=== PATIENT | male | born 1955 | race African-American/Black ===

== ENCOUNTER 2016-03-14 14:24 | Emergency (ER) | payer MEDICARE ==
[~2016-03-14] VITALS: Ht 193 cm; Wt 154.2 kg
[~2016-03-14 14:24] MED LIST: 'CLONIDINE0.1 MG PO; AMLODIPINE BESY1 TAB PO; AMLODIPINE BESYL5 MG PO; AMOXICILLIN500 M2 PO; APA PO; APRESOLINE25 MG PO; ASPIRIN ADULT L81 M2 PO; ASPIRIN81 M1 PO; ATENOLOL25 MG PO; B12,B-12,B 12500 MC1 PO; BACTRIM DS 8001 TA1 PO; BISACODYL5 MG PO; BISCOLAX10 M1 RC; BUMETANIDE1 MG PO; BUMETANIDE2 MG PO; CALCIUM ACETAT667 M2 PO; CALCIUM ACETAT667 MG PO; CARDIZEM60 MG PO; CARVEDILOL12.5 MG PO; CARVEDILOL25 MG PO; CATAPRES0.2 MG PO; CEPHALEXIN500 M1 PO; CIPRO500 MG PO; CLEOCIN PH600 MG/4 M IV; CLINDAMYCIN HC300 MG PO; CLINDAMYCIN150 MG PO; CLONIDINE HCL0.1 MG PO; CLONIDINE0.2 MG PO; CLONIDINE0.3 MG PO; CLOPIDOGREL75 MG PO; COLCRYS0.6 MG PO; COREG25 MG PO; COREG6.25 MG PO; COUMADIN10 M1 PO; COUMADIN6 M2 PO; Coumadin10 MG PO; DOXYCYCLINE100 MG PO; FEOSOL325 MG PO; FLUDROCORTISON0.1 MG PO; FUROSEMIDE40 MG PO; HUMALOG 751 UNIT/0.0 SC; HUMALOG100 U/ML SC; HUMALOG100 UNIT/2 SQ; HUMULIN R100 U/ML SC; HYDRALAZINE HYD50 MG PO; HYDROCODONE PO; IMDUR SA30 MG PO; IMDUR SA60 M1 PO; IMDUR SA60 MG PO; IMDUR60 MG PO; Imdur SA60 MG PO; LANTUS100 U/ML SC; LANTUS100 U/ML SQ; LEVOFLOXACIN500 MG PO; LISINOPRIL40 MG PO; METOLAZONE5 MG PO; MIRALAX POWDER17 G1 PO; MULTAQ400 MG PO; NEURONTIN300 MG PO; NITROGLYCERIN0.4 MG SL; NITROSTAT0.4 MG SL; NORCO 10-325 T1 EACH PO; NORCO 325 MG-101 TAB PO; NORCO 5-325 TA1 EACH PO; NORVASC10 MG PO; NOVOLIN 70100 UNIT/1 SQ; NOVOLOG 70/30 M10 ML SC; NOVOLOG 70/30 M10 ML SQ; PANTOPRAZOLE SO40 MG PO; PERCOCET 325 MG1 TA2 PO; PRAVACHOL40 MG PO; PRAVASTATIN SOD40 MG PO; Percocet 325 MG1 TAB PO; RANEXA1000 MG PO; RESTORIL15 MG PO; SODIUM BICARBO648 MG PO; SODIUM BICARBO650 MG PO; TOPROL XL100 MG PO; TOPROL XL50 M1 PO; TYLENOL325 M1 PO; VANCOMYCIN HYDRO1 GM IV; ZOSYN 2/0.252.25 GM IV
[2016-03-14 15:17] LABS: BASO % 0.3 % (0.0-1.0); EOS # 0.2 10*3/uL (0.0-0.4); EOS % 1.8 % (1.0-4.0); HEMATOCRIT 28.6 % (42.0-52.0); HEMOGLOBIN 8.9 g/dl (14.0-18.0); LYMPH # 1.3 10*3/uL (1.3-4.4); LYMPH % 12.4 % (27.0-41.0); MEAN CELL VOLUME 78.8 fl (80.0-94.0); MEAN CORPUSCULAR HGB 24.5 pg (27.0-31.0); MEAN CORPUSCULAR HGB CONC 31.1 g/dl (33.0-37.0); MEAN PLATELET VOLUME 9.1 fl (9.6-12.3); MONO # 0.7 10*3/uL (0.1-1.0); MONO % 6.3 % (3.0-9.0); NEUT # 8.1 10*3/uL (2.3-7.9); NEUT % 78.8 % (47.0-73.0); PLATELET COUNT AUTOMATED 219 10*3/uL (130-400); RED BLOOD COUNT 3.63 10*6/uL (4.50-5.90); RED CELL DISTRI WIDTH 16.7 % (0-14.5); WHITE BLOOD COUNT 10.3 10*3/uL (4.8-10.8)
[2016-04-13] MEDS ORDERED: PRAVACHOL40 MG PO (10:09)
[2016-04-13] MEDS ORDERED: NORVASC5 MG PO (10:09)
[2016-04-13] MEDS ORDERED: NEURONTIN300 MG PO (10:10)
[2016-04-13] MEDS ORDERED: NOVOLIN 70100 UNIT/1 SQ ×2 (10:10)
[2016-04-13] MEDS ORDERED: HUMULIN R100 U/ML SC (10:11)
[2016-04-13] MEDS ORDERED: CLONIDINE HCL0.1 M1 PO (10:11)
[2016-04-13] MEDS ORDERED: ISOSORBIDE MONO60 MG PO (10:11)
[2016-04-13] MEDS ORDERED: PERCOCET 325 MG1 TA2 PO (10:12)
[2016-04-13] MEDS ORDERED: NITROGLYCERIN0.4 MG SL (10:15)
[2016-04-13] MEDS ORDERED: CALCIUM ACETAT667 M2 PO (10:16)
[2016-04-13] MEDS ORDERED: MULTAQ400 MG PO (10:16)
[2016-04-13] MEDS ORDERED: DILTIAZEM60 MG PO (10:17)
[2016-04-13] MEDS ORDERED: Metolazone5 MG PO (10:17)
[2016-04-13] MEDS ORDERED: APRESOLINE25 MG PO (10:17)
[2016-04-13] MEDS ORDERED: BUMETANIDE2 MG PO (10:17)
[2016-04-15] MEDS ORDERED: BUMETANIDE2 MG PO (14:18)
[2016-04-15] MEDS ORDERED: METOLAZONE5 MG PO (14:18)
[2016-05-15] MEDS ORDERED: TOPROL XL50 M1 PO (15:12)
[2016-05-15] MEDS ORDERED: CLOPIDOGREL75 MG PO (15:12)
== END 2016-03-14 17:23 | disposition home or self-care (01) ==
LOC: ED 14:24
PROVIDERS: Emergency Medicine
DX: R07.89 Other chest pain (principal); F41.0 Panic disorder [episodic paroxysmal anxiety]; E78.00 Pure hypercholesterolemia, unspecified; F41.9 Anxiety disorder, unspecified; E11.40 Type 2 diabetes mellitus with diabetic neuropathy, unspecified; I12.9 Hypertensive chronic kidney disease with stage 1 through stage 4 chronic kidney disease, or unspecified chronic kidney disease; E11.22 Type 2 diabetes mellitus with diabetic chronic kidney disease; N18.4 Chronic kidney disease, stage 4 (severe); K21.9 Gastro-esophageal reflux disease without esophagitis; M19.90 Unspecified osteoarthritis, unspecified site; M86.9 Osteomyelitis, unspecified; E78.5 Hyperlipidemia, unspecified; M10.9 Gout, unspecified; I48.0 Paroxysmal atrial fibrillation; I99.8 Other disorder of circulatory system; Z79.899 Other long term (current) drug therapy; Z79.01 Long term (current) use of anticoagulants; Z79.4 Long term (current) use of insulin

== ENCOUNTER 2016-05-25 19:50 | Emergency (ER) | payer MEDICARE ==
[~2016-05-25] VITALS: Ht 193 cm; Wt 158.8 kg
[~2016-05-25 19:50] MED LIST changes: +CLONIDINE HCL0.1 M1 PO; +DILTIAZEM60 MG PO; +ISOSORBIDE MONO60 MG PO; +Metolazone5 MG PO; +NORVASC5 MG PO
[2016-05-25] MEDS ORDERED: ZITHROMAX250 MG PO (21:02)
== END 2016-05-25 21:07 | disposition home or self-care (01) ==
LOC: ED 19:50
DX: J40 Bronchitis, not specified as acute or chronic (principal); Z87.891 Personal history of nicotine dependence; Z79.4 Long term (current) use of insulin

== ENCOUNTER 2016-05-28 10:05 | Emergency (ER) | payer MEDICARE ==
[~2016-05-28] VITALS: Ht 193 cm; Wt 158.8 kg
[~2016-05-28 10:05] MED LIST changes: +ZITHROMAX250 MG PO
[2016-05-28] MEDS ORDERED: AMLODIPINE BESY1 TAB PO (10:24)
[2016-05-28] MEDS ORDERED: ASPIRIN81 MG PO (10:25)
[2016-05-28] MEDS ORDERED: IMDUR SA60 M1 PO (10:26)
[2016-05-28] MEDS ORDERED: CARVEDILOL25 MG PO (10:27)
[2016-05-28 11:12] LABS: BASO % 0.3 % (0.0-1.0); EOS # 0.3 10*3/uL (0.0-0.4); EOS % 2.6 % (1.0-4.0); HEMATOCRIT 28.7 % (42.0-52.0); HEMOGLOBIN 8.6 g/dl (14.0-18.0); IG # 0.1 10*3/uL (0.0-0.1); LYMPH % 9.2 % (27.0-41.0); MEAN CELL VOLUME 76.3 fl (80.0-94.0); MEAN CORPUSCULAR HGB 22.9 pg (27.0-31.0); MEAN PLATELET VOLUME 9.1 fl (9.6-12.3); MONO # 0.7 10*3/uL (0.1-1.0); MONO % 6.3 % (3.0-9.0); NEUT # 9.1 10*3/uL (2.3-7.9); NEUT % 81.2 % (47.0-73.0); PLATELET COUNT AUTOMATED 300 10*3/uL (130-400); RED BLOOD COUNT 3.76 10*6/uL (4.50-5.90); RED CELL DISTRI WIDTH 17.1 % (0-14.5); WHITE BLOOD COUNT 11.2 10*3/uL (4.8-10.8)
[2016-05-28 11:29] LABS: ALBUMIN 2.9 gm/dl (3.1-4.5); BILIRUBIN, TOTAL 0.2 mg/dl (0.2-1.0); POTASSIUM 4.1 mmol/L (3.5-5.1); TOTAL PROTEIN 7.6 gm/dL (6.4-8.2)
[2016-05-28] MEDS ORDERED: ROBITUSSIN AC 110 ML PO (11:41)
[2016-05-28] MEDS ORDERED: CEPHALEXIN500 M1 PO (12:27)
[2016-05-28] MEDS ORDERED: BACTRIM DS 8001 TA1 PO (12:27)
== END 2016-05-28 13:09 | disposition home or self-care (01) ==
LOC: ED 10:05
PROVIDERS: Physician Assistant
DX: R79.9 Abnormal finding of blood chemistry, unspecified (principal); L98.499 Non-pressure chronic ulcer of skin of other sites with unspecified severity; F17.200 Nicotine dependence, unspecified, uncomplicated; Z48.01 Encounter for change or removal of surgical wound dressing; Z98.890 Other specified postprocedural states; Z79.899 Other long term (current) drug therapy; Z79.82 Long term (current) use of aspirin; Z79.4 Long term (current) use of insulin

== ENCOUNTER 2016-05-31 22:38 | Emergency (ER) | payer MEDICARE ==
[~2016-05-31] VITALS: Ht 193 cm; Wt 158.8 kg
[~2016-05-31 22:38] MED LIST changes: +ASPIRIN81 MG PO; +ROBITUSSIN AC 110 ML PO
[2016-05-31 23:26] LABS: BASO % 0.2 % (0.0-1.0); EOS # 0.2 10*3/uL (0.0-0.4); EOS % 1.2 % (1.0-4.0); HEMATOCRIT 26.4 % (42.0-52.0); IG # 0.1 10*3/uL (0.0-0.1); LYMPH # 0.8 10*3/uL (1.3-4.4); LYMPH % 6.7 % (27.0-41.0); MEAN CELL VOLUME 76.5 fl (80.0-94.0); MEAN CORPUSCULAR HGB 23.2 pg (27.0-31.0); MEAN CORPUSCULAR HGB CONC 30.3 g/dl (33.0-37.0); MEAN PLATELET VOLUME 8.9 fl (9.6-12.3); MONO # 0.7 10*3/uL (0.1-1.0); MONO % 5.5 % (3.0-9.0); NEUT # 10.7 10*3/uL (2.3-7.9); NEUT % 85.7 % (47.0-73.0); PLATELET COUNT AUTOMATED 287 10*3/uL (130-400); RED BLOOD COUNT 3.45 10*6/uL (4.50-5.90); RED CELL DISTRI WIDTH 17.5 % (0-14.5); WHITE BLOOD COUNT 12.4 10*3/uL (4.8-10.8)
[2016-05-31 23:46] LABS: ALBUMIN 2.7 gm/dl (3.1-4.5); ALKALINE PHOSPHATASE 76 U/L (45-117); BILIRUBIN, TOTAL 0.2 mg/dl (0.2-1.0); BUN 66 mg/dl (7-24); CARBON DIOXIDE 24 mmol/L (21-32); CHLORIDE 106 mmol/L (98-107); CPK 86 U/L (39-308); EST GLOM FILT AFRICAN AMERICAN 13 ml/min; GLUCOSE 328 mg/dL (65-99); POTASSIUM 4.9 mmol/L (3.5-5.1); SGOT/AST 10 IU/L (3-35); SGPT/ALT 14 U/L (12-78); SODIUM 141 mmol/L (136-145); TOTAL PROTEIN 7.7 gm/dL (6.4-8.2)
[2016-05-31 23:47] LABS: CKMB 1.3 ng/ml (0.5-3.6); TROPONIN I < 0.015 ng/ml (<0.045)
[2016-06-01] MEDS ORDERED: CYCLOBENZAPRINE5 M3 PO (01:53)
[2016-06-01] MEDS ORDERED: NORVASC5 MG PO (23:39)
[2016-06-01] MEDS ORDERED: PERCOCET 325 MG1 TA5 PO (23:53)
[2016-06-02] MEDS ORDERED: NITROSTAT0.4 MG SL (00:02)
[2016-06-02] MEDS ORDERED: Metolazone5 MG PO (00:03)
[2016-06-02] MEDS ORDERED: CALPHRON667 MG PO (00:03)
== END 2016-06-01 03:10 | disposition home or self-care (01) ==
LOC: ED 22:38
PROVIDERS: Nurse Practitioner Family
DX: M54.12 Radiculopathy, cervical region (principal); I12.9 Hypertensive chronic kidney disease with stage 1 through stage 4 chronic kidney disease, or unspecified chronic kidney disease; N18.4 Chronic kidney disease, stage 4 (severe); B95.62 Methicillin resistant Staphylococcus aureus infection as the cause of diseases classified elsewhere; R60.9 Edema, unspecified; F41.9 Anxiety disorder, unspecified; D63.8 Anemia in other chronic diseases classified elsewhere; E11.621 Type 2 diabetes mellitus with foot ulcer; E11.40 Type 2 diabetes mellitus with diabetic neuropathy, unspecified; I50.9 Heart failure, unspecified; K21.9 Gastro-esophageal reflux disease without esophagitis; M10.9 Gout, unspecified; E78.5 Hyperlipidemia, unspecified; E66.01 Morbid (severe) obesity due to excess calories; M19.90 Unspecified osteoarthritis, unspecified site; I48.91 Unspecified atrial fibrillation; F17.200 Nicotine dependence, unspecified, uncomplicated; I25.2 Old myocardial infarction; Z98.890 Other specified postprocedural states; Z79.899 Other long term (current) drug therapy; Z79.82 Long term (current) use of aspirin; Z79.4 Long term (current) use of insulin

== ENCOUNTER 2016-06-01 20:43 | Inpatient (IN) | payer MEDICARE ==
[~2016-06-01] VITALS: Ht 193 cm; Wt 166.6 kg
--- NOTE | ~2016-06-01 | PR ---
[place], [place] PROGRESS NOTE NAME: YOLA GARDUNO [facility] #: [id number] UNIT #: [id number] ROOM: [facility] DOCTOR: DOROTHY RAMOS MD BIRTHDATE: [birth year] DOS: 06/03/2016 CARDIOLOGY PROGRESS NOTE SUBJECTIVE: The patient was seen at his bedside today on 06/03/2016 in the Intensive Care Unit. Since I saw him yesterday, he has apparently diuresed quite a bit; however, his urine output has been inaccurate because of anuresis and missing the urinal. He states that he is breathing a little bit better, but he still seems very dyspneic at rest and with minimal exertion. He denies any further chest pain. PHYSICAL EXAMINATION: VITAL SIGNS: Today, his pulse is 112 and irregularly irregular, blood pressure is 149/78. He is afebrile. NECK: Supple. He does have jugular distention and hepatojugular reflux. LUNGS: Respirations are tachypneic. He has decreased breath sounds at the bases and scattered wheezes throughout. HEART: Has an irregularly irregular rhythm. There are no murmurs or gallops. ABDOMEN: Obese. EXTREMITIES: Showed 1+ edema of the arms and legs. DIAGNOSTIC DATA: I reviewed his chest x-ray. He still is very hazy; although the focal collection in the left lung appears to have improved. He still appears to be significantly fluid overloaded from my perspective. LABORATORY DATA: Hemoglobin is 8.1, hematocrit 26.4. There are 10,700 white cells. INR is 1.0. Sodium is 142, potassium 4.1, BUN 70, creatinine 5.8. Estimated GFR for an -Canadian is 12. Serial troponin levels are still mildly elevated with his most recent one being 0.279 yesterday afternoon. IMPRESSION: 1. Chest pain with elevated troponin. The troponin elevation may be related to his worsening renal failure or acute coronary ischemia. Further workup will probably be necessary once his fluid status has been improved and renal functions have stabilized. 2. Type 2 diabetes mellitus, on insulin. 3. Xbfqy-xq-gjwjosb diastolic congestive heart failure. 4. Morbid obesity. 5. Remote cigarette abuse. 6. Diabetic complications including peripheral neuropathy, renal insufficiency and Charcot joints. PLAN: We will increase his hydralazine further to help control his blood pressure. We will also increase his beta blockers to further control his heart rate response to the atrial fibrillation. For now, we will continue to treat him medically, but if he does require dialysis and is stabilized on dialysis, we will discuss the possibility of catheterization after that. [place], [place] PROGRESS NOTE NAME: YOLA GARDUNO UNIT #: [id number] ROOM: [facility] DOCTOR: RICHARD ESPOSITO,DOROTHY BIRTHDATE: [birth year] For now, aggressive diuresis will be left to the judgment of his neuroscience specialist. I thank the hospitalist physicians for asking our advice regarding the patient's care. DOROTHY RAMOS MD CM:PNTRANS [id number] DOROTHY RAMOS MD 06/03/16 1538 interface
--- NOTE | ~2016-06-01 | CON ---
[place], [place] REPORT OF CONSULTATION [id number] UNIT #: [id number] [facility] DOCTOR: AISSATOU PINA M.D. BIRTHDATE: [birth year] DOS: WOUND CARE CONSULTATION HISTORY OF PRESENT ILLNESS: This is a 60-year-old male with a history of multiple medical problems and uncontrolled diabetes who was admitted for chest pain and shortness of breath. He was admitted to the Emergency Department for this complaint and was noted to be hypertensive as well as having positive troponin. His chest x-ray initially showed a large airspace opacity in left midlung. He was admitted to the ICU for further management. He also has a history of multiple medical problems that include the following, anemia of chronic kidney disease, history of anxiety, cervical radiculopathy, chronic kidney disease stage 4, diabetic foot ulcers, which he goes to a regular wound care doctor who he sees regularly. He has a foot wrap on his right lower extremity as well as a wrap on his left foot and he refuses to have me look at any of these wounds. PAST MEDICAL HISTORY: He has a history of diabetic foot ulcers, diabetic neuropathy, history of osteomyelitis, diastolic congestive heart failure, GERD, gout, hyperlipidemia, hypertension, history of fracture of ankle, history of myocardial infarction, hypercoagulable state, morbid obesity, MRSA culture positive, osteoarthritis, osteomyelitis, currently being treated by wound care that is not around this area, paroxysmal atrial fib, protein-calorie malnutrition, diabetes type 2. PAST SURGICAL HISTORY: He has had cardiac cath, port catheter in place, status post aneurysm repair, toe amputation. SOCIAL HISTORY: He is a nondrinker. He used to drink alcohol daily for 24 years. He is a former smoker, as stated above. FAMILY HISTORY: Significant for diabetes, hypertension, hyperlipidemia. Mother congestive heart failure and hypertension. Sister is secondary to diabetes with complications and cardiac abnormalities. ALLERGIES: No known drug allergies. CURRENT MEDICATIONS: Levaquin 500 mg, vancomycin 2000 mg, Humulin 70/30, hydralazine 50 mg p.o. b.i.d., Catapres 0.1 at bedtime, Coreg 37.5 b.i.d., Zosyn 2.25 grams IV q. 6 hours, Bumex 2 mg IV b.i.d., Zaroxolyn 5 mg Thursday, Thursday, Thursday; DuoNebs q. 6 hours p.r.n., Nitro-Bid 1 inch q. 6 hours topically, heparin subcutaneous 5000 units, Humalog sliding scale, Protonix 40 mg daily. Currently, he has an open wound on his right hand on his third digit on the dorsal aspect, he said it started out approximately 3-4 days ago, he does not know how it started. He does not recall any type of trauma to it. In general, he feels about the same as he did yesterday with his breathing. He is currently getting a blood transfusion, offers no other specific complaints. Does state that he knows he has had wounds on the left lower extremity on the anterior leg. [place], [place] REPORT OF CONSULTATION NAME: YOLA GARDUNO UNIT #: [id number] ROOM: [facility] DOCTOR: AISSATOU PINA M.D. BIRTHDATE: [birth year] He said all of a sudden his family member noticed those areas were bleeding, but he does not recall how this started, he does not recall any specific trauma. He does have ulcers on both of his feet, apparently which are being treated and he was quite adamant about not wanting me to look at these wounds. PHYSICAL EXAMINATION: VITAL SIGNS: His temperature today is 99.9, his pulse is 108, respirations are 24, blood pressure is 153/91, pulse ox is 93% on 3 liters. This patient is in no acute distress, pleasant and cooperative, somewhat pale to examination. There is no JVD. LUNGS: Coarse breath sounds bilaterally. CARDIOVASCULAR: S1, S2, distant heart sounds. ABDOMEN: Morbidly obese. EXTREMITIES: His right leg has a wrap all the way up to below the knee and the left leg has a wrap on his entire foot. I am unable to feel his pulses because he will not let me take the wrap off of his foot. He did have a Kerlix dressing on his left leg. He does have an indurated edema. There are some scattered superficial wounds with no surrounding periwound cellulitis or tenderness apparent. There is no purulence. There is a cluster of small, I would say 3-4 small superficial wounds approximately 1.5 cm x 1.5 cm in length and width, about 0.1 cm in depth, they are fairly clean. The wound on the right third digit is approximately 2.5 cm x 1.5 cm in width. There is, I would say about 0.2 in depth. There is a moderate amount of fibrin slough. AISSATOU PINA MD CM:CONSTR:REPORT OF CONSULTATION 1650 06/05/16 0627 interface
--- NOTE | ~2016-06-01 | CON ---
[place], [place] REPORT OF CONSULTATION NAME: YOLA GARDUNO [facility] #: [id number] UNIT #: [id number] ROOM: [facility] DOCTOR: DOROTHY RAMOS MD BIRTHDATE: [birth year] DOS: 06/02/2016 REASON FOR CONSULTATION: Chest pain and elevated troponin. HISTORY OF PRESENT ILLNESS: The patient is a 60-year-old man who is known to have coronary artery disease as documented by noninvasive imaging in the past. A myocardial perfusion study done on 10/12/2015 showed a small sized moderate intensity reversible defect of the inferior wall with an ejection fraction of 66%. It was felt that he did have coronary artery disease, but that his prognosis was good. A catheterization was not done because of his renal insufficiency and probability that the dye would worsen renal functions. Since then, his renal functions have deteriorated. He was scheduled to have a fistula inserted; however, he missed the appointment. He states that he was sitting at the side of his bed yesterday when he developed a pressures type chest pain, which was severe. This was across the center and left side of his chest and was associated with severe dyspnea. He did not have nausea or diaphoresis. As soon as the pain started, he became concerned and took a nitroglycerin. He stated that within a few moments, the pain resolved, but he remained somewhat dyspneic and therefore came to the Emergency Room for further assessment. In the Emergency Room, his blood pressure was significantly elevated and troponin was elevated. He also had an opacity in the left lung suggesting the possibility of pneumonia. He was therefore admitted to the Intensive Care Unit for further management. Since he has been here, he has continued to be dyspneic. He does not have the acute dyspnea that he had prior to admission, however. Serial troponin levels have remained elevated with an initial troponin level of 0.325, then 0.457, then 0.380. He has had no further chest pain. His electrocardiogram did not show any acute EKG changes, although he does have findings consistent with a previous anterior and inferior myocardial infarction. PAST MEDICAL HISTORY: Includes: 1. Type 2 diabetes mellitus, present for about 10 years and poorly controlled. 2. Obesity. 3. Cigarette abuse. 4. Severe peripheral neuropathy. 5. Chronic renal insufficiency, near end-stage. 6. Atherosclerotic heart disease, typically followed by chip mucker at the [facility] in [place]. 7. Cardiac catheterization at the [facility] in [place] around 2013. Reportedly, found mild vascular disease and he was not revascularized. 8. Recurrent hospitalizations for chest pain. Pharmacologic myocardial perfusion study on 10/10/2015 showed a small area of inferior ischemia with an ejection fraction of 66%. Given the fairly low risk of the stress test and his poor renal function, it was felt that he should be treated medically. 9. 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 Details are not available. 10. Status post bilateral toe amputations. 11. Charcot joint, right ankle with chronic fracture. 12. History of paroxysmal atrial fibrillation. [place], [place] REPORT OF CONSULTATION NAME: YOLA GARDUNO UNIT #: [id number] ROOM: [facility] DOCTOR: DOROTHY RAMOS MD BIRTHDATE: [birth year] MEDICATIONS: Prior to admission, amlodipine 5 mg daily, Bumex 2 mg t.i.d., calcium acetate 1334 mg t.i.d., carvedilol 25 mg b.i.d., cephalexin 500 mg q.i.d., clonidine 0.1 mg at bedtime, clopidogrel 75 mg daily, gabapentin 300 mg b.i.d., hydralazine 25 mg b.i.d., isosorbide mononitrate 60 mg daily, metolazone 5 mg Mondays, Wednesdays and Fridays, metoprolol succinate 50 mg daily, oxycodone with acetaminophen q.4 hours, pravastatin 40 mg at bedtime, Bactrim DS b.i.d., regular insulin by sliding scale, nitroglycerin sublingually p.r.n., Novolin 70/30 insulin 60 units daily and 50 units at bedtime. ALLERGIES: The patient has no known drug allergies. FAMILY HISTORY: The patient's father is at age 85. His mother at age 60 from heart failure. A sister from diabetes. REVIEW OF SYSTEMS: The patient denies diplopia or loss of vision. He denies focal weakness. He denies syncope. He denies nausea or vomiting. He did have the chest pain noted above. He denies fevers, chills or sweats. He denies change in bowel or bladder habits. He denies bleeding from his gums, bowels or urine. He denies any skin rashes. He does have chronic swelling of his legs and a Charcot joint of his right foot. The remainder of the review of systems is negative except as noted above. SOCIAL HISTORY: The patient does not consume alcohol, having quit 7 to 8 years ago. He does not use illegal drugs and he no longer smokes. PHYSICAL EXAMINATION: GENERAL: The patient is an overweight -[place] man who is awake, alert and oriented. VITAL SIGNS: Pulse is 86 and regular, blood pressure is 159/109. He has a temperature of 100.3. HEENT: Normocephalic, atraumatic. Extraocular muscles are intact. Sclerae are clear. Pupils are round and reactive to light. The oral mucosa is moist. Tongue is midline. NECK: Supple. He has no jugular distention or hepatojugular reflux. Carotids are full. I heard no bruits. He had no neck or supraclavicular masses. LUNGS: Respirations are unlabored. His chest is clear to auscultation and percussion. He has no presacral edema or chest wall tenderness. CARDIOVASCULAR: His heart has a regular rhythm. He has a fourth heart sound, but no third heart sound. ABDOMEN: Obese, but otherwise benign. EXTREMITIES: Do show pitting edema on the arms and legs with pitting noted above the knee bilaterally. His lower extremities are bandaged bilaterally. LABORATORY DATA: I reviewed her electrocardiogram. It shows sinus rhythm with evidence for previous inferior and anterior wall myocardial infarctions. No acute ST or T-wave changes are seen. Hemoglobin is 7.7, white count 12,600. INR 1.0. Sodium is 141 with potassium 4.3, BUN 67, creatinine 5.56 with an estimated GFR of 13. His baseline creatinine is about 3.5. [place], [place] REPORT OF CONSULTATION NAME: YOLA GARDUNO UNIT #: [id number] ROOM: [facility] DOCTOR: DOROTHY RAMOS MD BIRTHDATE: [birth year] IMPRESSIONS: 1. Elevated troponin. The patient does not have a pattern suggesting an acute myocardial infarction; however, his symptoms are certainly consistent with that diagnosis. His stress test last summer suggest that he does have significant disease; however, since his prognosis from a cardiac perspective was still good, we felt that it would be best to manage him medically rather than do catheterization and run the risk of worsening his renal failure. It may be getting to the point where that equation is being tipped in the other direction. He certainly does appear to be fluid overloaded and will require diuresis. We will leave that to the gear machine operator general, but if he does go into end-stage renal disease and require dialysis, we will discuss with his other physicians, the possibility of doing catheterization. 2. Diabetes mellitus, on insulin. 3. Morbid obesity. 4. Remote cigarette abuse. 5. Diabetes complicated by peripheral neuropathy, renal insufficiency and Charcot joints. PLAN: I will be adjusting his cardiac medications while we await Nephrology consultation. I would like them to be responsible for his fluid management. I think that he will, however, require significant diuresis. As noted above, for now, we will continue treating him medically, but if he does require dialysis and is stabilized on dialysis, we will discuss the possibility of catheterization after that. I thank the hospitalist physicians for asking our advice regarding his care. DOROTHY RAMOS MD CM:CONSTR:REPORT OF CONSULTATION 1050 06/02/16 1436 interface
--- NOTE | ~2016-06-01 | PR ---
[place], [place] PROGRESS NOTE NAME: YOLA GARDUNO [facility] #: [id number] UNIT #: [id number] ROOM: [facility] DOCTOR: AISSATOU PINA M.D. BIRTHDATE: [birth year] DOS: 06/02/[address] Pina completing my note on the patient. I wanted to finish my note. I was describing the wound on the third digit of the right hand. The measurements are approximately 2.5 length x 1.5 width x 0.2 in depth. Moderate amount of fibrin slough. The joint does not appear to be acutely tender. There is no purulence. There does not appear to be any surrounding cellulitis. LABORATORY AND DIAGNOSTIC DATA: His labs show today a white count of 12.6, hemoglobin of 7.7, his platelets are 291. He has a left shift of 10.8. INR is 1. BUN is 67, creatinine is 5.56. Hemoglobin A1c is 10.4. Troponin-I is 0.38. Chest x-ray is showing a large left mid lung pneumonia. ASSESSMENT AND PLAN: Multiple wounds in this patient. Unfortunately, he would not let me assess his wounds of the feet, so I am unable to comment on this. He does have a fairly large area of wound on his hand. I agree with using TheraHoney for now. I have taken the liberty of ordering an x-ray. At some point, this wound will likely need some debridement. We will continue to follow him while he is here. The left leg wound is likely secondary to his edema and diabetes. We will order TheraHoney for this as well. He has wraps on his feet, which makes vascular assessment impossible at this point if he will not let anyone take off his wraps, so this is really going to limit the treatment. I will follow along with you. AISSATOU PINA MD CM:PNTRANS [phone] AISSATOU PINA M.D. 06/03/16 0246 interface
[~2016-06-01 20:43] MED LIST changes: +CYCLOBENZAPRINE5 M3 PO
[2016-06-01 21:05] VITALS: BP 188/82
[2016-06-01 21:06] LABS: BASO % 0.2 % (0.0-1.0); EOS # 0.1 10*3/uL (0.0-0.4); EOS % 0.8 % (1.0-4.0); HEMATOCRIT 26.4 % (42.0-52.0); HEMOGLOBIN 7.9 g/dl (14.0-18.0); IG # 0.1 10*3/uL (0.0-0.1); LYMPH # 0.9 10*3/uL (1.3-4.4); LYMPH % 6.7 % (27.0-41.0); MEAN CELL VOLUME 76.1 fl (80.0-94.0); MEAN CORPUSCULAR HGB 22.8 pg (27.0-31.0); MEAN CORPUSCULAR HGB CONC 29.9 g/dl (33.0-37.0); MEAN PLATELET VOLUME 8.7 fl (9.6-12.3); MONO # 0.8 10*3/uL (0.1-1.0); MONO % 6.1 % (3.0-9.0); NEUT % 85.6 % (47.0-73.0); PLATELET COUNT AUTOMATED 297 10*3/uL (130-400); RED BLOOD COUNT 3.47 10*6/uL (4.50-5.90); RED CELL DISTRI WIDTH 17.3 % (0-14.5); WHITE BLOOD COUNT 12.8 10*3/uL (4.8-10.8)
[2016-06-01 21:16] LABS: PROTHROMBIN TIME 10.7 SECONDS (9.0-12.4)
[2016-06-01 21:34] LABS: ALBUMIN 2.7 gm/dl (3.1-4.5); BILIRUBIN, TOTAL 0.2 mg/dl (0.2-1.0); MAGNESIUM 2.2 mg/dL (1.5-2.1); POTASSIUM 4.6 mmol/L (3.5-5.1); TOTAL PROTEIN 7.9 gm/dL (6.4-8.2)
[2016-06-01 21:35] VITALS: BP 208/95
[2016-06-01 21:35] LABS: CKMB 1.9 ng/ml (0.5-3.6)
[2016-06-01 21:39] LABS: TROPONIN I 0.325 ng/ml (<0.045)
[2016-06-01 22:22] VITALS: BP 200/90
[2016-06-01 23:00] VITALS: BP 184/92
[2016-06-01] MEDS ORDERED: NORVASC5 MG PO (23:39)
[2016-06-01] MEDS ORDERED: PERCOCET 325 MG1 TA5 PO (23:53)
[2016-06-02] VITALS (12 sets, daily range): BP systolic 145–177; BP diastolic 64–109
[2016-06-02] MEDS ORDERED: NITROSTAT0.4 MG SL (00:02)
[2016-06-02] MEDS ORDERED: Metolazone5 MG PO (00:03)
[2016-06-02] MEDS ORDERED: CALPHRON667 MG PO (00:03)
[2016-06-02 00:43] LABS: CKMB 2.3 ng/ml (0.5-3.6)
[2016-06-02 00:52] LABS: TROPONIN I 0.457 ng/ml (<0.045)
[2016-06-02 05:56] LABS: BASO % 0.2 % (0.0-1.0); EOS # 0.1 10*3/uL (0.0-0.4); EOS % 0.8 % (1.0-4.0); HEMATOCRIT 25.3 % (42.0-52.0); HEMOGLOBIN 7.7 g/dl (14.0-18.0); IG # 0.1 10*3/uL (0.0-0.1); LYMPH # 0.9 10*3/uL (1.3-4.4); LYMPH % 7.4 % (27.0-41.0); MEAN CELL VOLUME 76.2 fl (80.0-94.0); MEAN CORPUSCULAR HGB 23.2 pg (27.0-31.0); MEAN CORPUSCULAR HGB CONC 30.4 g/dl (33.0-37.0); MONO # 0.7 10*3/uL (0.1-1.0); MONO % 5.6 % (3.0-9.0); NEUT # 10.8 10*3/uL (2.3-7.9); NEUT % 85.4 % (47.0-73.0); PLATELET COUNT AUTOMATED 291 10*3/uL (130-400); RED BLOOD COUNT 3.32 10*6/uL (4.50-5.90); RED CELL DISTRI WIDTH 17.4 % (0-14.5); WHITE BLOOD COUNT 12.6 10*3/uL (4.8-10.8)
[2016-06-02 06:09] LABS: CKMB 1.5 ng/ml (0.5-3.6)
[2016-06-02 06:20] LABS: FREE T4 1.18 ng/dl (0.76-1.46); POTASSIUM 4.3 mmol/L (3.5-5.1); PROTHROMBIN TIME 10.6 SECONDS (9.0-12.4); TROPONIN I 0.38 ng/ml (<0.045)
[2016-06-02 06:26] LABS: THYROID STIM HORMONE (HS) 0.856 uIU/ml (0.358-4.75)
[2016-06-02 07:30] LABS: FOLIC ACID 5.69 ng/mL (>5.38)
[2016-06-02 07:40] LABS: HEMOGLOBIN A1c 10.4 % (4.8-5.6)
[2016-06-02 12:28] LABS: CKMB 1.6 ng/ml (0.5-3.6)
[2016-06-02 12:44] LABS: TROPONIN I 0.279 ng/ml (<0.045)
[2016-06-02 18:39] LABS: BILIRUBIN NEGATIVE (NEGATIVE); BLOOD 1+ (NEGATIVE); CLARITY CLEAR (CLEAR); COLOR YELLOW (YELLOW); GLUCOSE NEGATIVE (NEGATIVE); KETONE NEGATIVE (NEGATIVE); LEUKO ESTERASE NEGATIVE (NEGATIVE); NITRITE NEGATIVE (NEGATIVE); PH 5.5 (5.0-9.0); PROTEIN 2+ (NEGATIVE); UROBILINOGEN 0.2 E.U./dl (0.2-1.0)
[2016-06-02 19:09] LABS: EPITHELIAL CELLS 0-2; WBC 0-2 wbc/hpf (0-5)
[2016-06-03] VITALS: BP 149/85
[2016-06-03 04:00] VITALS: BP 155/77
[2016-06-03 05:54] LABS: BASO % 0.3 % (0.0-1.0); EOS # 0.1 10*3/uL (0.0-0.4); EOS % 0.8 % (1.0-4.0); HEMATOCRIT 26.4 % (42.0-52.0); HEMOGLOBIN 8.1 g/dl (14.0-18.0); IG # 0.1 10*3/uL (0.0-0.1); LYMPH # 0.6 10*3/uL (1.3-4.4); LYMPH % 5.7 % (27.0-41.0); MEAN CELL VOLUME 76.3 fl (80.0-94.0); MEAN CORPUSCULAR HGB 23.4 pg (27.0-31.0); MEAN CORPUSCULAR HGB CONC 30.7 g/dl (33.0-37.0); MEAN PLATELET VOLUME 9.3 fl (9.6-12.3); MONO # 0.7 10*3/uL (0.1-1.0); MONO % 6.9 % (3.0-9.0); NEUT # 9.2 10*3/uL (2.3-7.9); NEUT % 85.7 % (47.0-73.0); PLATELET COUNT AUTOMATED 321 10*3/uL (130-400); RED BLOOD COUNT 3.46 10*6/uL (4.50-5.90); RED CELL DISTRI WIDTH 17.3 % (0-14.5); WHITE BLOOD COUNT 10.7 10*3/uL (4.8-10.8)
[2016-06-03 06:09] LABS: ALBUMIN 2.7 gm/dl (3.1-4.5); BILIRUBIN, TOTAL 0.4 mg/dl (0.2-1.0); MAGNESIUM 2.1 mg/dL (1.5-2.1); POTASSIUM 4.1 mmol/L (3.5-5.1); TOTAL PROTEIN 7.7 gm/dL (6.4-8.2)
[2016-06-03 06:14] LABS: C-REACTIVE PROTEIN 21.5 MG/DL (0-0.3)
[2016-06-03 07:17] LABS: ABG BASE EXCESS -3.7 mmol/L (-2.0-2.0); ABG CO2 CONTENT 21.3 mmol/L (23-27); ABG HCO3 20.2 mmol/l (22-26); ABG TEMPERATURE 98.2 F (98.0-99.0); ARTERIAL BLOOD GAS PH 7.394 (7.35-7.45); ARTERIAL BLOOD GAS PO2 56.5 mmHg (80-90)
[2016-06-03 08:00] VITALS: BP 149/78
[2016-06-03 12:00] VITALS: BP 154/74
[2016-06-03] MEDS ORDERED: HYDRALAZINE HYD50 MG PO (14:46)
[2016-06-03] MEDS ORDERED: ZOSYN 2/0.252.25 GM IV (15:05)
[2016-06-03] MEDS ORDERED: LEVOFLOXAC IV (15:05)
[2016-06-03] MEDS ORDERED: VANCOMYCIN2 GM/500 M IV (15:05)
[2016-06-03 15:36] VITALS: BP 165/63
== END 2016-06-03 16:48 | disposition short-term general hospital (02) | DRG 177 ==
LOC: ED 20:43 → EDHOLD 22:01 → ICCU 22:01
PROVIDERS: Family Medicine Sports Medicine; Internal Medicine
PROC: 30233N1 Transfusion of Nonautologous Red Blood Cells into Peripheral Vein, Percutaneous Approach (ICD-10-PCS; principal; 2016-06-02)
DX: J15.6 Pneumonia due to other Gram-negative bacteria (principal); E43 Unspecified severe protein-calorie malnutrition; I50.33 Acute on chronic diastolic (congestive) heart failure; E11.22 Type 2 diabetes mellitus with diabetic chronic kidney disease; N18.4 Chronic kidney disease, stage 4 (severe); N17.9 Acute kidney failure, unspecified; M86.9 Osteomyelitis, unspecified; E11.42 Type 2 diabetes mellitus with diabetic polyneuropathy; I48.0 Paroxysmal atrial fibrillation; I13.0 Hypertensive heart and chronic kidney disease with heart failure and stage 1 through stage 4 chronic kidney disease, or unspecified chronic kidney disease; I16.1 Hypertensive emergency; Z68.41 Body mass index [BMI] 40.0-44.9, adult; L03.113 Cellulitis of right upper limb; E11.40 Type 2 diabetes mellitus with diabetic neuropathy, unspecified; D63.1 Anemia in chronic kidney disease; K21.9 Gastro-esophageal reflux disease without esophagitis; E78.5 Hyperlipidemia, unspecified; I25.2 Old myocardial infarction; Z87.891 Personal history of nicotine dependence; Z83.3 Family history of diabetes mellitus; Z82.49 Family history of ischemic heart disease and other diseases of the circulatory system; F41.9 Anxiety disorder, unspecified; E66.01 Morbid (severe) obesity due to excess calories; E11.69 Type 2 diabetes mellitus with other specified complication; B95.62 Methicillin resistant Staphylococcus aureus infection as the cause of diseases classified elsewhere; I25.10 Atherosclerotic heart disease of native coronary artery without angina pectoris; Z89.422 Acquired absence of other left toe(s); Z89.421 Acquired absence of other right toe(s); E11.610 Type 2 diabetes mellitus with diabetic neuropathic arthropathy; D50.9 Iron deficiency anemia, unspecified; M47.9 Spondylosis, unspecified

== ENCOUNTER 2016-07-06 21:18 | Inpatient (IN) | payer MEDICARE ==
[~2016-07-06] VITALS: Ht 193 cm; Wt 154.7 kg
[~2016-07-06 21:18] MED LIST changes: +CALPHRON667 MG PO; +LEVOFLOXAC IV; +PERCOCET 325 MG1 TA5 PO; +VANCOMYCIN2 GM/500 M IV
[2016-07-06 21:43] VITALS: BP 159/105
[2016-07-06 21:45] LABS: BASO # 0.1 10*3/uL (0.0-0.1); BASO % 0.4 % (0.0-1.0); EOS # 0.3 10*3/uL (0.0-0.4); EOS % 2.3 % (1.0-4.0); HEMATOCRIT 30.9 % (42.0-52.0); HEMOGLOBIN 9.4 g/dl (14.0-18.0); IG # 0.1 10*3/uL (0.0-0.1); LYMPH # 1.5 10*3/uL (1.3-4.4); MEAN CELL VOLUME 81.7 fl (80.0-94.0); MEAN CORPUSCULAR HGB 24.9 pg (27.0-31.0); MEAN CORPUSCULAR HGB CONC 30.4 g/dl (33.0-37.0); MEAN PLATELET VOLUME 9.1 fl (9.6-12.3); MONO # 0.8 10*3/uL (0.1-1.0); MONO % 6.8 % (3.0-9.0); NEUT # 9.5 10*3/uL (2.3-7.9); PLATELET COUNT AUTOMATED 310 10*3/uL (130-400); RED BLOOD COUNT 3.78 10*6/uL (4.50-5.90); RED CELL DISTRI WIDTH 20.6 % (0-14.5); WHITE BLOOD COUNT 12.1 10*3/uL (4.8-10.8)
[2016-07-06 22:02] LABS: BUN 51 mg/dl (7-24); CARBON DIOXIDE 23 mmol/L (21-32); CHLORIDE 108 mmol/L (98-107); CPK 69 U/L (39-308); EST GLOM FILT AFRICAN AMERICAN 21 ml/min; GLUCOSE 223 mg/dL (65-99); MAGNESIUM 1.8 mg/dL (1.5-2.1); POTASSIUM 4.1 mmol/L (3.5-5.1); SODIUM 139 mmol/L (136-145)
[2016-07-06 22:03] LABS: TROPONIN I < 0.015 ng/ml (<0.045)
[2016-07-06 23:13] VITALS: BP 179/82
[2016-07-06 23:45] VITALS: BP 178/81
[2016-07-07] VITALS (19 sets, daily range): BP systolic 141–188; BP diastolic 62–87
[2016-07-07 03:45] LABS: URINE AMPHETAMINES < 1000 (1000ng/ml); URINE BARBITURATES < 200 (200ng/ml); URINE COCAINE < 300 (300ng/ml)
[2016-07-07 09:39] LABS: BASO # 0.1 10*3/uL (0.0-0.1); BASO % 0.4 % (0.0-1.0); EOS # 0.3 10*3/uL (0.0-0.4); EOS % 2.7 % (1.0-4.0); HEMATOCRIT 30.6 % (42.0-52.0); HEMOGLOBIN 9.3 g/dl (14.0-18.0); LYMPH # 1.2 10*3/uL (1.3-4.4); LYMPH % 10.5 % (27.0-41.0); MEAN CELL VOLUME 81.4 fl (80.0-94.0); MEAN CORPUSCULAR HGB 24.7 pg (27.0-31.0); MEAN CORPUSCULAR HGB CONC 30.4 g/dl (33.0-37.0); MEAN PLATELET VOLUME 9.3 fl (9.6-12.3); MONO # 0.9 10*3/uL (0.1-1.0); MONO % 7.4 % (3.0-9.0); NEUT # 9.3 10*3/uL (2.3-7.9); NEUT % 78.7 % (47.0-73.0); PLATELET COUNT AUTOMATED 317 10*3/uL (130-400); RED BLOOD COUNT 3.76 10*6/uL (4.50-5.90); RED CELL DISTRI WIDTH 20.6 % (0-14.5); WHITE BLOOD COUNT 11.8 10*3/uL (4.8-10.8)
[2016-07-07 09:44] LABS: CPK 59 U/L (39-308)
[2016-07-07 09:48] LABS: TROPONIN I < 0.015 ng/ml (<0.045)
[2016-07-07] MEDS ORDERED: Hydralazine Hyd25 MG PO (09:52)
[2016-07-07] MEDS ORDERED: AMLODIPINE BESY1 TAB PO (09:55)
[2016-07-07 10:12] LABS: INTERNATIONAL NORM RATIO 1.3 (2.0-3.5)
[2016-07-07 10:13] LABS: ALBUMIN 2.7 gm/dl (3.1-4.5); FREE T4 1.23 ng/dl (0.76-1.46); MAGNESIUM 1.9 mg/dL (1.5-2.1); PHOSPHOROUS 3.3 mg/dL (2.5-4.9); POTASSIUM 3.9 mmol/L (3.5-5.1)
[2016-07-07 10:17] LABS: BILIRUBIN, TOTAL 0.4 mg/dl (0.2-1.0); THYROID STIM HORMONE (HS) 1.73 uIU/ml (0.358-4.75); TOTAL PROTEIN 7.8 gm/dL (6.4-8.2)
[2016-07-07 10:30] LABS: HEMOGLOBIN A1c 7.6 % (4.8-5.6)
[2016-07-07 10:44] LABS: FOLIC ACID 9.73 ng/mL (>5.38); VITAMIN D, 25-HYDROXY 8.5 ng/mL (30-100)
[2016-07-07 12:28] LABS: CKMB 1.3 ng/ml (0.5-3.6); CPK 62 U/L (39-308)
[2016-07-07 12:30] LABS: TROPONIN I < 0.015 ng/ml (<0.045)
[2016-07-07 18:51] LABS: CPK 61 U/L (39-308)
[2016-07-07 18:52] LABS: TROPONIN I < 0.015 ng/ml (<0.045)
[2016-07-08] VITALS: BP 157/70
[2016-07-08 04:00] VITALS: BP 153/67
[2016-07-08 08:00] VITALS: BP 164/76
[2016-07-08 08:21] LABS: INTERNATIONAL NORM RATIO 1.3 (2.0-3.5); PROTHROMBIN TIME 13.6 SECONDS (9.0-12.4)
[2016-07-08 12:00] VITALS: BP 178/80
[2016-07-08 16:00] VITALS: BP 150/65
[2016-07-08 20:00] VITALS: BP 147/70
[2016-07-09] VITALS: BP 143/67
[2016-07-09 04:00] VITALS: BP 168/78
[2016-07-09 06:09] LABS: BASO % 0.4 % (0.0-1.0); EOS # 0.4 10*3/uL (0.0-0.4); HEMATOCRIT 28.2 % (42.0-52.0); HEMOGLOBIN 8.5 g/dl (14.0-18.0); LYMPH # 1.5 10*3/uL (1.3-4.4); LYMPH % 15.2 % (27.0-41.0); MEAN CELL VOLUME 82.2 fl (80.0-94.0); MEAN CORPUSCULAR HGB 24.8 pg (27.0-31.0); MEAN CORPUSCULAR HGB CONC 30.1 g/dl (33.0-37.0); MEAN PLATELET VOLUME 8.9 fl (9.6-12.3); MONO # 0.8 10*3/uL (0.1-1.0); MONO % 7.6 % (3.0-9.0); NEUT # 7.2 10*3/uL (2.3-7.9); NEUT % 72.4 % (47.0-73.0); PLATELET COUNT AUTOMATED 293 10*3/uL (130-400); RED BLOOD COUNT 3.43 10*6/uL (4.50-5.90); RED CELL DISTRI WIDTH 20.5 % (0-14.5); WHITE BLOOD COUNT 9.9 10*3/uL (4.8-10.8)
[2016-07-09 06:11] LABS: INTERNATIONAL NORM RATIO 1.3 (2.0-3.5); PROTHROMBIN TIME 14.3 SECONDS (9.0-12.4)
[2016-07-09 08:00] VITALS: BP 158/68
[2016-07-09 12:00] VITALS: BP 147/66
[2016-07-09 16:00] VITALS: BP 152/64
[2016-07-09 20:00] VITALS: BP 148/67
[2016-07-10] VITALS: BP 155/69
[2016-07-10 04:00] VITALS: BP 132/47
[2016-07-10 06:57] LABS: BASO % 0.2 % (0.0-1.0); EOS # 0.3 10*3/uL (0.0-0.4); EOS % 3.8 % (1.0-4.0); HEMATOCRIT 26.2 % (42.0-52.0); HEMOGLOBIN 7.9 g/dl (14.0-18.0); LYMPH # 1.4 10*3/uL (1.3-4.4); LYMPH % 17.4 % (27.0-41.0); MEAN CELL VOLUME 81.9 fl (80.0-94.0); MEAN CORPUSCULAR HGB 24.7 pg (27.0-31.0); MEAN CORPUSCULAR HGB CONC 30.2 g/dl (33.0-37.0); MEAN PLATELET VOLUME 9.2 fl (9.6-12.3); MONO # 0.6 10*3/uL (0.1-1.0); MONO % 7.4 % (3.0-9.0); NEUT # 5.8 10*3/uL (2.3-7.9); NEUT % 70.8 % (47.0-73.0); PLATELET COUNT AUTOMATED 264 10*3/uL (130-400); RED CELL DISTRI WIDTH 20.3 % (0-14.5); WHITE BLOOD COUNT 8.1 10*3/uL (4.8-10.8)
[2016-07-10 07:31] LABS: INTERNATIONAL NORM RATIO 1.4 (2.0-3.5); PROTHROMBIN TIME 14.7 SECONDS (9.0-12.4)
[2016-07-10 08:00] VITALS: BP 161/74
[2016-07-10] MEDS ORDERED: METOPROLOL SUC100 M1 PO (10:37)
[2016-07-10] MEDS ORDERED: HYDRALAZINE HYD50 MG PO (10:37)
[2016-07-10] MEDS ORDERED: COUMADIN7.5 M1 PO (10:37)
[2016-07-10 12:00] VITALS: BP 156/74
[2016-07-10 16:00] VITALS: BP 150/59
[2016-07-10 20:00] VITALS: BP 147/58
[2016-07-11] VITALS: BP 144/72
[2016-07-11 06:56] LABS: BASO % 0.4 % (0.0-1.0); EOS # 0.3 10*3/uL (0.0-0.4); EOS % 3.6 % (1.0-4.0); HEMATOCRIT 28.6 % (42.0-52.0); HEMOGLOBIN 8.6 g/dl (14.0-18.0); LYMPH # 1.3 10*3/uL (1.3-4.4); LYMPH % 14.4 % (27.0-41.0); MEAN CELL VOLUME 81.5 fl (80.0-94.0); MEAN CORPUSCULAR HGB 24.5 pg (27.0-31.0); MEAN CORPUSCULAR HGB CONC 30.1 g/dl (33.0-37.0); MEAN PLATELET VOLUME 9.2 fl (9.6-12.3); MONO # 0.7 10*3/uL (0.1-1.0); MONO % 7.4 % (3.0-9.0); NEUT # 6.6 10*3/uL (2.3-7.9); NEUT % 73.8 % (47.0-73.0); PLATELET COUNT AUTOMATED 272 10*3/uL (130-400); RED BLOOD COUNT 3.51 10*6/uL (4.50-5.90); RED CELL DISTRI WIDTH 20.7 % (0-14.5); WHITE BLOOD COUNT 8.9 10*3/uL (4.8-10.8)
[2016-07-11 07:35] LABS: POTASSIUM 4.3 mmol/L (3.5-5.1)
[2016-07-11 07:38] LABS: INTERNATIONAL NORM RATIO 1.4 (2.0-3.5); PROTHROMBIN TIME 15.6 SECONDS (9.0-12.4)
[2016-07-11 08:00] VITALS: BP 142/80
[2016-07-11 12:00] VITALS: BP 164/60
== END 2016-07-11 12:35 | disposition home health service (06) | DRG 871 ==
LOC: ED 21:18 → ICCU 22:19 → EDHOLD 22:19 → ICCU 22:36 → 5E 07-10 16:50
PROVIDERS: Internal Medicine; Internal Medicine Cardiovascular Disease; Student in an Organized Health Care Education/Training Program
DX: A41.9 Sepsis, unspecified organism (principal); E43 Unspecified severe protein-calorie malnutrition; N18.4 Chronic kidney disease, stage 4 (severe); I82.621 Acute embolism and thrombosis of deep veins of right upper extremity; I48.0 Paroxysmal atrial fibrillation; I50.30 Unspecified diastolic (congestive) heart failure; I13.0 Hypertensive heart and chronic kidney disease with heart failure and stage 1 through stage 4 chronic kidney disease, or unspecified chronic kidney disease; I16.1 Hypertensive emergency; M86.9 Osteomyelitis, unspecified; Z68.41 Body mass index [BMI] 40.0-44.9, adult; E11.22 Type 2 diabetes mellitus with diabetic chronic kidney disease; E11.621 Type 2 diabetes mellitus with foot ulcer; E11.40 Type 2 diabetes mellitus with diabetic neuropathy, unspecified; K21.9 Gastro-esophageal reflux disease without esophagitis; E66.01 Morbid (severe) obesity due to excess calories; D50.9 Iron deficiency anemia, unspecified; F41.9 Anxiety disorder, unspecified; M47.22 Other spondylosis with radiculopathy, cervical region; M10.9 Gout, unspecified; E78.5 Hyperlipidemia, unspecified; D63.1 Anemia in chronic kidney disease; E55.9 Vitamin D deficiency, unspecified; Z82.49 Family history of ischemic heart disease and other diseases of the circulatory system; I25.2 Old myocardial infarction; Z83.3 Family history of diabetes mellitus; Z87.891 Personal history of nicotine dependence; Z79.4 Long term (current) use of insulin; Z79.899 Other long term (current) drug therapy

== ENCOUNTER 2016-10-04 12:49 | Emergency (ER) | payer MEDICARE ==
[~2016-10-04] VITALS: Ht 193 cm; Wt 154.2 kg
[~2016-10-04 12:49] MED LIST changes: +COUMADIN7.5 M1 PO; +Hydralazine Hyd25 MG PO; +METOPROLOL SUC100 M1 PO
[2016-10-04 13:12] LABS: BASO % 0.2 % (0.0-1.0); EOS # 0.1 10*3/uL (0.0-0.4); EOS % 0.5 % (1.0-4.0); HEMATOCRIT 33.3 % (42.0-52.0); HEMOGLOBIN 10.2 g/dl (14.0-18.0); IG # 0.1 10*3/uL (0.0-0.1); LYMPH # 0.9 10*3/uL (1.3-4.4); LYMPH % 5.8 % (27.0-41.0); MEAN CELL VOLUME 81.2 fl (80.0-94.0); MEAN CORPUSCULAR HGB 24.9 pg (27.0-31.0); MEAN CORPUSCULAR HGB CONC 30.6 g/dl (33.0-37.0); MEAN PLATELET VOLUME 9.4 fl (9.6-12.3); MONO # 0.6 10*3/uL (0.1-1.0); MONO % 4.1 % (3.0-9.0); NEUT # 13.3 10*3/uL (2.3-7.9); NEUT % 88.9 % (47.0-73.0); PLATELET COUNT AUTOMATED 243 10*3/uL (130-400)
[2016-10-04 13:21] LABS: INTERNATIONAL NORM RATIO 2.9 (2.0-3.5)
[2016-10-04 13:35] LABS: ALKALINE PHOSPHATASE 78 U/L (45-117); BILIRUBIN, TOTAL 0.3 mg/dl (0.2-1.0); BUN 88 mg/dl (7-24); CARBON DIOXIDE 23 mmol/L (21-32); CHLORIDE 106 mmol/L (98-107); EST GLOM FILT AFRICAN AMERICAN 17 ml/min; GLUCOSE 249 mg/dL (65-99); MAGNESIUM 1.5 mg/dL (1.5-2.1); POTASSIUM 4.1 mmol/L (3.5-5.1); SGOT/AST 20 IU/L (3-35); SGPT/ALT 35 U/L (12-78); SODIUM 141 mmol/L (136-145)
[2016-10-04 13:36] LABS: TROPONIN I < 0.015 ng/ml (<0.045)
== END 2016-10-04 14:32 | disposition short-term general hospital (02) ==
LOC: ED 12:49
PROVIDERS: Emergency Medicine
DX: I21.3 ST elevation (STEMI) myocardial infarction of unspecified site (principal); R60.0 Localized edema; I13.0 Hypertensive heart and chronic kidney disease with heart failure and stage 1 through stage 4 chronic kidney disease, or unspecified chronic kidney disease; N18.4 Chronic kidney disease, stage 4 (severe); I50.9 Heart failure, unspecified; I48.91 Unspecified atrial fibrillation; K21.9 Gastro-esophageal reflux disease without esophagitis; E78.5 Hyperlipidemia, unspecified; M10.9 Gout, unspecified; E11.9 Type 2 diabetes mellitus without complications; E55.9 Vitamin D deficiency, unspecified; Z87.891 Personal history of nicotine dependence; Z98.890 Other specified postprocedural states; Z89.429 Acquired absence of other toe(s), unspecified side; Z86.718 Personal history of other venous thrombosis and embolism; Z79.899 Other long term (current) drug therapy; Z79.01 Long term (current) use of anticoagulants

== ENCOUNTER 2016-11-03 11:40 | Emergency (ER) | payer MEDICARE ==
[~2016-11-03] VITALS: Ht 193 cm; Wt 147.4 kg
[2016-11-03 12:33] LABS: BASO % 0.3 % (0.0-1.0); EOS # 0.2 10*3/uL (0.0-0.4); EOS % 1.8 % (1.0-4.0); HEMATOCRIT 32.1 % (42.0-52.0); HEMOGLOBIN 9.8 g/dl (14.0-18.0); LYMPH # 1.4 10*3/uL (1.3-4.4); LYMPH % 14.2 % (27.0-41.0); MEAN CELL VOLUME 81.1 fl (80.0-94.0); MEAN CORPUSCULAR HGB 24.7 pg (27.0-31.0); MEAN CORPUSCULAR HGB CONC 30.5 g/dl (33.0-37.0); MONO # 0.5 10*3/uL (0.1-1.0); MONO % 4.8 % (3.0-9.0); NEUT # 7.5 10*3/uL (2.3-7.9); NEUT % 78.3 % (47.0-73.0); PLATELET COUNT AUTOMATED 273 10*3/uL (130-400); RED BLOOD COUNT 3.96 10*6/uL (4.50-5.90); RED CELL DISTRI WIDTH 17.3 % (0-14.5); WHITE BLOOD COUNT 9.5 10*3/uL (4.8-10.8)
[2016-11-03 12:53] LABS: ALBUMIN 2.8 gm/dl (3.1-4.5); CREATININE 3.67 mg/dL (0.70-1.30); POTASSIUM 4.2 mmol/L (3.5-5.1); TOTAL PROTEIN 7.8 gm/dL (6.4-8.2)
== END 2016-11-03 15:52 | disposition home or self-care (01) ==
LOC: ED 11:40
PROVIDERS: Nurse Practitioner Family
DX: R51 Headache (principal); H53.8 Other visual disturbances; I13.0 Hypertensive heart and chronic kidney disease with heart failure and stage 1 through stage 4 chronic kidney disease, or unspecified chronic kidney disease; E11.22 Type 2 diabetes mellitus with diabetic chronic kidney disease; N18.4 Chronic kidney disease, stage 4 (severe); I50.32 Chronic diastolic (congestive) heart failure; I48.0 Paroxysmal atrial fibrillation; E11.40 Type 2 diabetes mellitus with diabetic neuropathy, unspecified; E11.621 Type 2 diabetes mellitus with foot ulcer; M1A.9XX0 Chronic gout, unspecified, without tophus (tophi); E78.5 Hyperlipidemia, unspecified; I10 Essential (primary) hypertension; I25.2 Old myocardial infarction; M19.90 Unspecified osteoarthritis, unspecified site; M86.9 Osteomyelitis, unspecified; Z86.718 Personal history of other venous thrombosis and embolism; Z79.899 Other long term (current) drug therapy; Z79.4 Long term (current) use of insulin; Z87.891 Personal history of nicotine dependence

== ENCOUNTER 2016-11-17 10:15 | Inpatient (IN) | payer MEDICARE ==
[~2016-11-17] VITALS: Ht 193 cm; Wt 149.9 kg
--- NOTE | ~2016-11-17 | CON ---
[place], [place] REPORT OF CONSULTATION NAME: YOLA GARDUNO UNIT #: [id number] ROOM: [place] [address] DOCTOR: CARLO QUINN MD BIRTHDATE: [birth year] DOS: 11/17/2016 Nephrology Consultation TIME OF SERVICE: 1550. HISTORY OF PRESENT ILLNESS: The patient is a 61-year-old gentleman that was seen in renal consultation for history of CKD. The patient is well known to me, has been hospitalized multiple times, both here as well as [facility] and [facility] in [facility]. He has been followed by our service as well as other services in the past, but has been more routinely following with us of late. He has a past medical history significant for diabetes and hypertension, which is uncontrolled, as well as peripheral arterial disease and diabetic foot wounds and neuropathy. He also has a history of neuropathy and retinopathy. He has a history of cerebral aneurysm status post craniectomy. His most recent hospitalizations were at [facility] and [facility] in [facility] after a chronic issue with his lower extremity wound, especially in his right ankle and foot. He subsequently undergo right below the knee amputation by Dr. Velez. As expected, this has healed very well because he has mostly distal disease. He does have uncontrolled hypertension. He states that he went to his new primary care physician's office, Dr. Soto and underwent a basic physical examination. He was told to come back this week with his medication list. He received a flu shot and he states that over the weekend, he started feeling worse, feeling chills and just could not get warm; finally this morning, came to the hospital with worsening shortness of breath. He was found to be hypertensive into the 170s/70s, afebrile and saturations were acceptable; however, he was on oxygen support with 4 liters nasal cannula. He was reporting chest pains and had troponin levels checked which showed elevated levels of 0.105. He was undergoing an echocardiogram while I was in the ICU, trying to evaluate him. I came back and talked with him again thereafter. Results of that are not yet back. He did have CT planned as well, which has not yet been done. He is drinking the contrast for this. His chest radiograph indicated he had right lower lobe infiltrate. He is not reporting any specific nausea, vomiting. His baseline creatinine is generally in the mid 4s. He had issues with volume overload, but has been taking what should be about 2 mg of Bumex twice daily with metolazone Thursday, Thursday and Thursday. The patient has never known his medications very well and again today is not any different. He does not have his medication list with him or his bottles. Reportedly, he had his medications called for reconsolidation by the pharmacy. He was ordered IV fluids, but I do not believe this has yet been given. His creatinine is 4.5 and again this is fairly stable for him, from his recent hospitalizations at [facility]. His glucose was uncontrolled at almost 300. His electrolytes were within normal limits. He has also history of chronic anemia, likely secondary to chronic infections and inflammation as well as CKD. He had been on erythropoietin stimulating agents in the past. We had to discontinue PAULINE inhibitors and ARBs because of hyperkalemia issues as well as worsening renal insufficiency issues, though he does have proteinuria. He continues to follows with his wound care physician in [place], Dr. Franklin, for his other left lower extremity wounds. [place], [place] REPORT OF CONSULTATION NAME: YOLA GARDUNO UNIT #: [id number] ROOM: [place] [address] DOCTOR: CARLO QUINN MD BIRTHDATE: [birth year] REVIEW OF SYSTEMS: As per the HPI, otherwise all systems reviewed and negative. PAST MEDICAL HISTORY: As above. FAMILY HISTORY: Negative for ESRD. SOCIAL HISTORY: , has children and lives in [facility]. No reported toxic abuses currently. Used to work in plant. PHYSICAL EXAMINATION: VITAL SIGNS: Afebrile, heart rates in the 70s to 90s, respiratory rate 17 to 20, blood pressures 150s/60s to 170s/90s, saturation 94% to 100% on room air. GENERAL: Awake, alert, oriented, in no acute distress. Nasal cannula oxygen is in place. NECK: JVP is not elevated compared to usual. His chronic edema is probably near to his baseline. EXTREMITIES: Lower extremities, have a clean BKA on the right. LUNGS: Bilateral crackles at bases, right greater than left. CARDIOVASCULAR: Irregular rhythm. There is no palpable lift, heave or thrill. ABDOMEN: Grossly obese, nontender. Visceral examination is limited because of obesity. No rebound tenderness. NEUROLOGIC: Decreased sensation. Gross motor function is intact. LABORATORIES AND DIAGNOSTICS: Laboratories were reviewed. Troponin 0.1. PH 7.41, pCO2 of 35, PaO2 of 62. White blood cell count 11.1, hemoglobin 9.1, platelets 180. Sodium 137, potassium 3.9, chloride 103, bicarb 21, BUN 60, creatinine 4.5, EGFR 16, glucose 296, calcium 8.2, magnesium 2.2. LFTs unremarkable except albumin 2.8. Chest radiograph as above. EKG also reviewed, no acute ST elevations, atrial fibrillation. Flu antigen negative. ASSESSMENT AND PLAN: 1. Chronic kidney disease stage V. Overall, baseline appears to fluctuate in the mid 4s with an EGFR just around 15 or below. He has had prior mild acute injuries with an EGFR around 8 to 10, but did not require dialysis. Continue to avoid nephrotoxins as well as PAULINE inhibitors and ARBs for now. Continue diuretics for volume and management. Electrolytes and acid base status are acceptable. 2. Volume and hypertension, he is overloaded. Resume his home diuretics and stop normal saline bolus that has been ordered. 3. Anemia of chronic kidney disease as well as chronic inflammation. May need to restart him on erythropoietin stimulating agents. He has been on these in the past. Check iron levels in the morning and B12 and folate levels. 4. Uncontrolled diabetes. A1c is pending for tomorrow and continue to effort control of this. [place], [place] REPORT OF CONSULTATION NAME: YOLA GARDUNO UNIT #: [id number] ROOM: [place] [address] DOCTOR: CARLO QUINN MD BIRTHDATE: [birth year] CARLO QUINN MD CM:CONSTR:REPORT OF CONSULTATION 28 11/18/16 0643 interface
--- NOTE | ~2016-11-17 | PROC NOTE ---
[place], [place] PROCEDURE NOTE NAME: YOLA GARDUNO UNIT #: [id number] ROOM: 421 DOCTOR: ANAHY FOSS BIRTHDATE: [birth year] DOS: 11/18/2016 LOCATION: 4 East. Room: 421, bed 1. ORDERING PHYSICIAN: Dr. Solitario. RADIOLOGIST: Dr. Craft. BACKGROUND INFORMATION: The patient, a 61-year-old male, was seen for modified barium swallow. This test was ordered to rule out aspiration. The patient presented to the Emergency Department with shortness of breath and chest pain. MEDICAL HISTORY: Includes acute respiratory failure with hypoxia, right lower lobe pneumonia, GERD, metabolic encephalopathy and CHF. This patient currently receives a regular diet and thin liquids. For today's assessment, the patient was alert and able to follow commands. He denied any difficulty with chewing or swallowing. The patient was receiving oxygen via nasal cannula. Oral peripheral examination revealed presence of natural teeth with many missing. Lingual, labial, and buccal skills were within normal limits in terms of strength, range of motion, and coordination. The patient was able to volitionally cough and swallow. METHODS AND MATERIALS USED FOR THE EXAM: The patient was positioned in the lateral plane and examination was viewed under fluoroscopy. The patient was presented with a variety of consistencies to assess swallowing skills including applesauce mixed with barium presented in half teaspoon amounts, barium-coated sandwich presented in bite size piece and thin liquid barium taken by cup and straw. The patient was observed swallowing liquids in single and consecutive sip size amounts. ORAL PHASE: Unremarkable. PHARYNGEAL PHASE: Unremarkable. ESOPHAGEAL PHASE: This phase of the swallow was not formally assessed during this exam. IMPRESSIONS AND RECOMMENDATIONS: Based upon assessment results, this patient presents with oral and pharyngeal swallowing skills that are within normal limits. Recommend he remain on present diet. No followup therapy is warranted at this time. Results and recommendations were shared with the patient and his nurse and they verbalized understanding. Thank you very much for this referral. Should you have any questions regarding this patient, please contact the speech pathologist at [phone]. [place], [place] PROCEDURE NOTE NAME: YOLA GARDUNO UNIT #: [id number] ROOM: 421 DOCTOR: ANAHY FOSS BIRTHDATE: [birth year] ANAHY FOSS CM:SEB:PROCEDURE NOTE [id number] 215 ANAHY FOSS
--- NOTE | ~2016-11-17 | CON ---
[place], [place] REPORT OF CONSULTATION NAME: YOLA GARDUNO UNIT #: [id number] ROOM: 421 DOCTOR: XU CLARK MD BIRTHDATE: [birth year] DOS: 11/18/2016 PULMONARY CONSULTATION, EVALUATION AND MANAGEMENT REQUESTING PHYSICIAN: Hospitalist services. This is an addendum to the consultation. The patient was personally seen and examined today with [id number] encounter. The history was personally taken from the patient as well as physical examination performed. All the lab data was reviewed. Assessment and management was personally made for today's consultation as well. He agreed with the note which was done by the medical technologist hematology as well. HISTORY OF PRESENT ILLNESS: This is a 61-year-old white male with a past history of chronic kidney disease stage 4 as well as with history of essential hypertension, type 2 diabetes mellitus, peripheral vascular disease and severe obesity, presented to the hospital Emergency Room on the date of 11/17/2016. The patient reported symptoms of shortness of breath which occur significant and progressively prior to the hospitalization. ____ shortness of breath started last Thursday, which were noted gradually worsening. The symptoms of shortness of breath was getting progressively worse with significant tightness in the chest was described, especially in the midsternal area. The patient does not have any specific symptoms of anginal pain but noted with this current symptoms. The shortness of breath associated with mild cough which was described to be nonproductive. The patient denies symptoms of wheezing. He denies any symptoms of dysphagia. The patient denies symptoms of hemoptysis. Denies any chest trauma. He has been admitted to the hospital. The patient has noted with acute hypoxia on admission as well. He was noted with atrial fibrillation, rapid ventricular response on admission, which has been treated. Current heart rate was noted essentially less than 100. REVIEW OF SYSTEMS: Completed by the medical technologist hematology. PAST MEDICAL HISTORY: Known with history of: 1. Type 2 diabetes mellitus. 2. Chronic kidney disease, stage 4. 3. History of congestive heart failure, diastolic dysfunction. 4. Essential hypertension. 5. Hyperlipidemia. 6. History of peripheral vascular disease. 7. Coronary artery disease. 8. Morbid obesity. 9. Paroxysmal atrial fibrillation. 10. Past history of diabetes and tobacco use. 11. History of vitamin D deficiency. 12. History of osteomyelitis of the foot and lower extremity on the right side, treated with prolonged antibiotics. PAST SURGICAL HISTORY: [place], [place] REPORT OF CONSULTATION NAME: YOLA GARDUNO UNIT #: [id number] ROOM: [facility] DOCTOR: NAUN TONY MD,XU BIRTHDATE: [birth year] 1. Cardiac catheterization. 2. Right below knee amputation because of the complications of peripheral vascular disease. 3. Partial amputation of the left foot as well, couple of fingers. 4. MediPort insertion, which was also known. 5. Status post aneurysm repair. SOCIAL HISTORY: The patient stated he is currently , lives at home. He does have 4 children. He has worked for 24 years in the [employer]. Denies history of alcohol use or any illicit drug use. The patient has been known with history of tobacco use teenager, pack of cigarettes per day and currently smoking about 3 cigarettes a day. HOME MEDICATIONS: Listed use of Norvasc, clonidine, Plavix, gabapentin, hydralazine, NovoLog, NPH insulin and regular insulin, Imdur and pravastatin. DRUG ALLERGIES: No known drug allergies. PHYSICAL EXAMINATION: GENERAL: This is a 61-year-old -Israeli male who has been currently noted sitting on the bed without any acute distress. The patient's height was recorded by the nursing staff with height of 6 feet 4 inches, weight of 153 kg, BMI 41.3. VITAL SIGNS: Recorded showed the temperature noted normal, respiratory rate range between 18-22, heart rate 128 and 73 with atrial fibrillation, rapid ventricular response previously. Heart rate noted with 75 beats per minute. The blood pressure ranging between 170-66 to highest of 183/88. Intake is 1850, output 1700 mL, negative 800 mL noted in the last 24 hours. The pulse oxygen saturation on 4 L nasal cannula was noted as 95% previously noted as 89% on room air. HEENT: Examination shows head was atraumatic. Eyes, nonicterus. NECK: Supple. Severely reduced posterior pharyngeal space. CARDIOVASCULAR SYSTEM: S1, S2 is audible. LUNGS: Noted without any wheezing. Inspiratory crackles were noted in the middle and lower portion of the lungs bilaterally. Breaths are noted mild to moderately decreased bilaterally. ABDOMEN: Noted chronic obesity. EXTREMITIES: Show edema of the left lower extremity, partially with below knee amputation of the right lower extremity. The foot was noted banded in place. MUSCULOSKELETAL: Does not show any other acute deformities except below knee amputation of the right lower extremity. CENTRAL NERVOUS SYSTEM: Cranial nerves 2-12. No focal deficits. SKIN: Noted chronic changes on the lower extremity, but there were no abnormal lesions or rashes present. LABORATORY DATA: CBC yesterday on admission 11/17/2016, WBC count 11.1, hemoglobin ____ and platelet count was normal. PT/PTT were noted as normal yesterday. Influenza A and B, nasal washing antigens were negative. CMP that was done on 11/17/2016 showed BUN of 60, creatinine 4.5, glucose 296. Troponin minimally elevated at 0.09. Second set of troponin was still noted minimally [place], [place] REPORT OF CONSULTATION NAME: YOLA GARDUNO UNIT #: [id number] ROOM: 421 DOCTOR: NAUN TONY MDXU BIRTHDATE: [birth year] elevated at 0.105. Arterial blood gases done yesterday on 3 liters, pH of 7.41, pCO2 of 34, pO2 of 62.1. PTT 41.9 this morning, which are noted subtherapeutic. CBC that was done this morning shows WBC count normal, hemoglobin 9.4, hematocrit 30.0, platelet count was normal. PT/INR noted is 1.0 today. CMP was done this morning shows BUN of 60, creatinine 4.16. Chest x-ray that was done and CT scan of the chest on this admission was personally reviewed. Chest x-ray was done shows changes of infiltration and consolidation with increased interstitial marking on admission. The chest x-ray that was done this morning shows increased area of infiltration and/or other findings. CT scan of the abdomen and pelvis which was done without contrast yesterday, lower portion of the lung was taken with that which was personally reviewed. It shows evidence of bronchovascular pattern with infiltration emanating from the hilar area bilaterally with interstitial edema as well as infiltration. Small pleural fluid was also noted bilaterally. IMPRESSION: 1. The patient has been currently admitted to the hospital. Current finding was highly suggestive of evidence of cardiac etiology, atrial fibrillation, rapid ventricular response, uncontrolled hypertension with acute hypoxic respiratory failure, interstitial pulmonary edema and congestive heart failure. The finding does not seem to be noted consistent with finding of acute pneumonia including any aspiration. 2. History of coronary artery disease, history of congestive heart failure with diastolic dysfunction and others. 3. The patient with history of chronic obesity with finding suggestive of possibility of obstructive sleep apnea disorder which has not been assessed in the past. 4. Acute on chronic kidney injury with history of chronic kidney disease. The kidney functions seem to be resolving. 5. Chronic obesity with history of longstanding multiple medical problems including diabetes mellitus, peripheral vascular disease and other findings. 6. Atrial fibrillation which has been currently treated under care of the Cardiology Services. Diuretic therapy being adjusted. The patient also seen and being managed by the Nephrology Services. The ultrasound of the lower extremity was performed, does not show any evidence of deep venous thrombosis. PLAN AND RECOMMENDATIONS: Continue to maximize the cardiac management. The antibiotic will be discontinued. Cancel the modified barium swallow. There is no need for that. Monitor respiratory status closely. ____ oxygen supplementation, maintain saturation 90% or greater, in case of further hypoxia, consider use of the BiPAP as well. Other supportive therapy, plan and management as in progress. Usual care. Supportive treatment and other care as already otherwise noted in progress. Thank you for allowing me to participate in the care of this patient. [place], [place] REPORT OF CONSULTATION NAME: YOLA GARDUNO UNIT #: [id number] ROOM: [facility] DOCTOR: XU CLARK MD BIRTHDATE: [birth year] XU MAGALLON MD CM:CONSTR:REPORT OF CONSULTATION 1134 11/19/16 0155 interface
--- NOTE | ~2016-11-17 | CON ---
[place], [place] REPORT OF CONSULTATION NAME: YOLA GARDUNO UNIT #: [id number] ROOM: 421 DOCTOR: JANET WOLF DO BIRTHDATE: [birth year] DOS: 11/18/2016 REASON FOR CONSULATION: Shortness of breath, hypoxia, right lower lobe pneumonia, by the hospitalist service. CHIEF COMPLAINT: Shortness of breath. HISTORY OF PRESENT ILLNESS: A 61-year-old man presented to the [facility] for a chief complaint of shortness of breath since Thursday. The patient said that he was unable to sleep the night prior to that because of shortness of breath and cough. He also admits to having chest pain, which is localized in the sternal region. When he came to the ER, he was noted to have some paroxysmal atrial fibrillation and was extremely fatigued. He was transferred to the ICU. An ABG showed hypoxia. Cardiology was consulted for further evaluation. The patient continues to report shortness of breath. He says his chest pain is improving. The patient had MediPort placed for IV antibiotics for the right leg osteomyelitis and then had amputation of the right leg. The patient continues to have wound care on his left foot. The patient is currently not on any antibiotics at this time and he finished the course for osteomyelitis. REVIEW OF SYSTEMS: The patient denies any fever, chills, nausea or vomiting at this time. PAST MEDICAL HISTORY: Chronic kidney disease stage IV, diabetic neuropathy, diastolic congestive heart failure, DVT of the axillary vein, GERD, gout, hyperlipidemia, hypertension, history of acute fracture of the ankle, history of myocardial infarction, hypercoagulable state, morbid obesity, paroxysmal AFib, type 2 diabetes, vitamin D deficiency. PAST SURGICAL HISTORY: History of MediPort placement for osteomyelitis of the right leg, right BKA, history of cardiac catheterization, history of aneurysm repair, toe amputation, double brain aneurysm surgery in 2011. SOCIAL HISTORY: The patient is a smoker, used to smoke 2 packs per day for 40+ year. The patient denies alcohol use. The patient denies drug use. FAMILY HISTORY: Father is an 85-year-old with history of diabetes, hypertension, hyperlipidemia. Mother is 60+ years old with history of diabetes and CHF. ALLERGIES: No known drug allergies. HOME MEDICATIONS: Amlodipine 1 tab p.o. daily, clonidine 0.2 mg p.o. b.i.d., clopidogrel 75 mg p.o. daily, gabapentin 300 mg p.o. b.i.d., Novolin 60 units subQ, Humulin R 1 unit subQ, Imdur 60 mg p.o. daily, Pravachol 40 mg p.o. at bedtime. REVIEW OF SYSTEMS: [place], [place] REPORT OF CONSULTATION NAME: YOLA GARDUNO UNIT #: [id number] ROOM: 421 DOCTOR: JANET WOLF DO BIRTHDATE: [birth year] GENERAL: Report chills. Denies fever. HEENT: Denies vision change, hearing loss, nasal discharge, nasal or ear discharge. CARDIOVASCULAR: Denies chest pain, palpitation, lower extremity edema, diaphoresis. RESPIRATORY: Reports shortness of breath, cough. Denies hemoptysis, wheezing, dyspnea on exertion or sputum production. ABDOMINAL: Denies abdominal pain, nausea, vomiting, diarrhea or constipation. GENITOURINARY: Denies dysuria, hematuria, increase or decrease in frequency. NEUROLOGIC: Denies lightheadedness, dizziness, confusion. PSYCHIATRIC: Denies depression, anxiety, or substance abuse. ENDOCRINE: Denies polydipsia, heat or cold intolerance. SKIN: Denies any rashes, lesions, ulcers. PHYSICAL EXAMINATION: VITAL SIGNS: Temperature 99.3, pulse 75, respiratory rate 18, blood pressure 170/66, pulse ox 95% on 4 liters of nasal cannula. GENERAL: Responsive, mild distress, arousable. Head is atraumatic. There is a craniotomy scar noted secondary to double brain aneurysm surgery in 2011. HEAD: Atraumatic craniotomy scar. EYES: PERRL. No lesion, no ulceration. Nonicteric. No drainage. ENT: No scars, no masses. Nasal mucosa and oral mucosa are moist. NECK: Without lesions, masses. Trachea midline. Thyroid, nonenlarged. HEART: Gallop, tachycardia, systolic murmur. Carotids free of bruit, 1+ edema bilaterally. LUNGS: Dyspnea on exertion, shortness of breath, cough. No rhonchi, wheezing or stridor. Diminished lung sounds at the bases. ABDOMEN: Soft, positive bowel sounds, mild abdominal tenderness in all 4 quadrants. EXTREMITIES: Edema. No clubbing, no cyanosis, no erythema. Right leg amputation noted. Left leg wrapped with wound care. PSYCHOLOGICAL: Good historian, good recent memory, exhibits normal mood and affect. SKIN: Warm, dry, no rashes, no nodules, no tightening. LABORATORY DATA: White cell count of 10.8, hemoglobin of 9.4, platelet count of 196. Sodium of 137, BUN of 60, creatinine of 4.6, glucose of 219. Chemistry on 11/17, sodium of 137, BUN of 60, creatinine 4.50, glucose of 296. Hematology on 11/17, CBC, white cell count of 11.1, hemoglobin of 9.1, platelet count of 118. Blood gas, pH of 7.4, pCO2 of 34.6, pO2 of 62.1, bicarbonate of 21.7. MICROBIOLOGY: Blood cultures are pending to date. IMAGING: Chest x-ray on 11/17 showed right lower lobe infiltrate. Abdominal CT showed patchy but symmetrical mixed interstitial and alveolar infiltrate at the lung bases. Abdominal x-ray showed unremarkable bowel pattern. Chest x-ray on 11/18 showed increasing multifocal airspace disease. ASSESSMENT AND PLAN: 1. Discontinue modified barium swallow. [place], [place] REPORT OF CONSULTATION NAME: YOLA GARDUNO UNIT #: [id number] ROOM: 421 DOCTOR: JANET WOLF DO BIRTHDATE: [birth year] 2. The patient likely has pulmonary edema, less likely has pneumonia, more likely has cardiac issues. 3. Continue same antibiotics. 4. Please refer to Dr. Magallon's assessment and plan for this patient. JANET WOLF DO XU MAGALLON MD CM:CONSTR:REPORT OF CONSULTATION 1014 11/18/16 9736 interface
--- NOTE | ~2016-11-17 | PR ---
[place], [place] PROGRESS NOTE NAME: YOLA GARDUNO UNIT #: [id number] ROOM: 421 DOCTOR: NAUN TONY MD,XU BIRTHDATE: [birth year] DOS: 11/19/2016 SUBJECTIVE: The patient was independently seen in qdko-sy-djiw encounter. The labs were reviewed. Physical examination performed personally. The history was confirmed from the patient. Any changes in the treatment for this patient were personally made for this patient during today's note. Note done by the medical receptionist was approved. The patient has been responding to treatment noted with reduction in the respiratory symptoms at this time, progressive with improvement in the shortness of breath, currently transferred to the telemetry floor. Continue intravenous heparin for this patient. He was also getting other treatment including diuretic therapies. OBJECTIVE: VITAL SIGNS: Showed a normal temperature with a respiratory rate 20, heart rate 63, blood pressure 160/73. Pulse oxygen saturation on 4 liters nasal cannula was 100% saturation noted this morning. LUNGS: Noted with that improvement in the crackles of the lungs were noted bilaterally. ABDOMEN: Soft, obese, and nontender. EXTREMITIES: Shows no new changes. LABORATORY DATA: The chest x-ray done this morning shows significant improvement in the aeration of the lung noted with improvement in the area of atelectasis infiltration and findings of congestive heart failure. CMP today shows BUN of 16, creatinine 3.88. Glucose 181. CBC this morning, hemoglobin 7.9, hematocrit 26.1, platelet count was normal. The INR was noted at 1.0. IMPRESSION: 1. Atrial fibrillation with rapid ventricular response, acute congestive heart failure, most likely diastolic dysfunction with area of atelectasis. No evidence of acute pneumonia, resolution of the respiratory symptoms were noted with improvement in congestive heart failure, improving, acute kidney injury with superimposed chronic kidney disease was noted as well. 2. Suspected obstructive sleep apnea disorder. PLAN: The patient would be continued on current plan of treatment from the pulmonary point. No changes were recommended. He has been currently getting intravenous therapeutic heparin for this patient and other medical management. He was also noted significant anemia for this patient at this time. Etiology is unclear. Rule out any GI bleeding. [place], [place] PROGRESS NOTE NAME: YOLA GARDUNO UNIT #: [id number] ROOM: 421 DOCTOR: XU CLARK MD BIRTHDATE: [birth year] XU MAGALLON MD CM:PNNATHANIEL [id number] XU TONY MD 11/20/16 0231 interface
--- NOTE | ~2016-11-17 | PR ---
[place], [place] PROGRESS NOTE NAME: YOLA GARDUNO UNIT #: [id number] ROOM: 421 DOCTOR: NAUN TONY MD,XU BIRTHDATE: [birth year] DOS: 11/24/2016 SUBJECTIVE: He has been noted comfortable at this time without any distress. The patient has been getting anticoagulation. OBJECTIVE: VITAL SIGNS: Temperature noted normal, respiratory rate 20, heart rate 63, blood pressure 158/64, pulse ox saturation on room air was 100% saturation. HEENT: Chronic severe obesity. NECK: Supple. CARDIOVASCULAR: S1, S2 audible. LUNGS: Without any wheeze or crackles. ABDOMEN: Soft, nontender. LABORATORY DATA: INR were noted 1.6 today. PTT was therapeutic. IMPRESSION: The patient anticoagulation has been gradually improving toward the therapeutic range. The patient with atrial fibrillation, resolved. Pleural effusion secondary to acute congestive heart failure with atrial fibrillation, has been noted stable and controlled range. Suspected obstructive sleep apnea disorder. PLAN OF TREATMENT UPON DISCHARGE: The patient recommended follow up in the office for assessment of sleep apnea disorder, which is considered very likely. Other therapy plan and management care. XU MAAGLLON MD CM:LAURA [phone] XU TONY MD 11/25/16 0713 interface
--- NOTE | ~2016-11-17 | PR ---
[place], [place] PROGRESS NOTE [id number] UNIT #: [id number] ROOM: 421 DOCTOR: JANET WOLF DO BIRTHDATE: [birth year] DOS: 11/21/2016 SUBJECTIVE: The patient was seen and evaluated this morning with Dr. Magallon. The patient denies any fever, chills, nausea, vomiting, shortness of breath or chest pain. The patient denies any complaints at this time. OBJECTIVE: VITAL SIGNS: Temperature 98.5, pulse 66, respiratory rate 18, blood pressure 148/80, pulse ox of 94 on 2 liters nasal cannula. LABORATORY DATA: White cell count 8.9, hemoglobin 8.3, platelet count 229. Chemistries pending. Blood cultures preliminary shows no bacterial growth. ASSESSMENT: 1. Progressive and gradual resolution of congestive heart failure. 2. Improvement in respiratory status, resolution of area of atelectasis and interstitial edema. 3. Resolving syuwd-[id number]-mhalwbx injury. PLAN OF MANAGEMENT: 1. No changes from pulmonary standpoint. 2. Supportive therapy. JANET WOLF DO XU MAGALLON MD CM:PNTRANS [phone] JANET WOLF DO 11/21/16 0855 interface
--- NOTE | ~2016-11-17 | PR ---
[place], [place] PROGRESS NOTE NAME: YOLA GARDUNO [facility] #: [id number] UNIT #: [id number] ROOM: 421 DOCTOR: NAUN TONY MD,XU BIRTHDATE: [birth year] DOS: 11/21/2016 SUBJECTIVE: The patient was independently seen and examined today. History was confirmed. Physical examination was done. All the labs were personally reviewed and assessment for this patient and the changes in treatment were personally made for today's visit. The note done by the medical billing representative was approved. The patient continues to show reduction in symptoms of shortness of breath. He has been continued with heparin as well as the Coumadin for this patient for the anticoagulation. The patient's level of the anticoagulation, the patient with INR noted subtherapeutic, but therapeutic PTT was noted with intravenous unfractionated heparin use. He denies any chest pain. OBJECTIVE: VITAL SIGNS: For the patient were essentially noted as mildly elevated blood pressure systolic pressure 152, otherwise normal vital signs. The pulse oxygen saturation of the patient was noted as 99% on 2 L nasal cannula. Intake was a 2300 mL, the output was 3900 mL, was noted with positive fluid balance approximately 50 mL was noted. LABORATORY DATA: INR was noted at 1.0. The PTT were noted 57, which is therapeutic. Renal function panel of the patient noted with BUN 61, creatinine 3.86. In general, the patient has been showing improvement in the symptoms of congestive heart failure with pleural fluid as well as acute on chronic kidney injury. PLAN OF TREATMENT: Atrial fibrillation, currently on anticoagulation with gradual changes in the management of the anticoagulation with Coumadin to bring the INR to the therapeutic level prior to discharge. The patient will be continued on oxygen supplementation necessary. The ___ patient continued to improve. The patient radiologically and clinically would not require any acute intervention at this time. XU MAGALLON MD CM:PNTRANS [phone] XU TONY MD 11/21/16 1621 interface
--- NOTE | ~2016-11-17 | PR ---
[place], [place] PROGRESS NOTE NAME: YOLA GARDUNO UNIT #: [id number] ROOM: 421 DOCTOR: NAUN TONY MD,XU BIRTHDATE: [birth year] DOS: 11/22/2016 SUBJECTIVE: He has been noted with gradual reduction and improvement in symptoms of shortness of breath. There was no coughing or chest pain. He was continued on the unfractionated therapeutic heparin and the anticoagulation was also continue with the Coumadin. OBJECTIVE: VITAL SIGNS: Shows normal temperature, respiratory rate 20, heart rate 65, and blood pressure 160/80. The pulse oxygen saturation on room air 98% saturation recorded. HEENT: Examination shows no acute change. NECK: Supple. CARDIOVASCULAR: S1, S2 audible. LUNGS: Noted with continued improvement in aeration of the lungs for the patient noted without any wheezing or crackles at this time. ABDOMEN: Soft, nontender. LABORATORY DATA: The PTT was elevated again significantly at 197 significantly above the therapeutic range. The INR was noted 1.2, which remains subtherapeutic. BMP this morning: BUN 64, creatinine 3.71. IMPRESSION: 1. The patient with atrial fibrillation on anticoagulation with mild toxicity from the heparin, which has been adjusted. Subtherapeutic INR with gradual increased use of the Coumadin. The patient is getting very high dose Coumadin, currently 15 mg. 2. Resolving congestive heart failure, pleural fluid, which would not require any acute intervention. PLAN OF TREATMENT: Continue the patient on current therapy, plan of care as previously. Oxygen supplementation treatment plan and management. XU MAGALLON MD CM:PNTRANS [phone] XU TONY MD 11/23/16 8385 interface
--- NOTE | ~2016-11-17 | PR ---
[place], [place] PROGRESS NOTE [id number] UNIT #: [id number] ROOM: 421 DOCTOR: JANET WOLF DO BIRTHDATE: [birth year] DOS: 11/19/2016 SUBJECTIVE: The patient was seen and evaluated today with Dr. Magallon. The patient is alert, awake and responsive. No nausea, vomiting, diarrhea, lightheadedness, dizziness, shortness of breath or chest pain. The patient complains of mild abdominal tenderness that is improving. OBJECTIVE: VITAL SIGNS: Temperature 98.3, pulse 63, respiratory rate 20, blood pressure 160/73, pulse ox 100% on 4 liters nasal cannula. GENERAL: The patient is awake, alert, cooperative. HEENT: No change. NECK: Supple. CARDIOVASCULAR: Regular rate and rhythm. No gallop. ABDOMEN: Soft, nontender, positive bowel sounds. LUNGS: No respiratory distress. No rales, rhonchi or wheezing. Mild diminished lung at the bases. EXTREMITIES: 1+ pitting edema in the lower extremities. No cyanosis. Right leg amputation noted. ASSESSMENT: 1. Atrial fibrillation with rapid ventricular rate controlled. Cardiology service following. 2. Interstitial pulmonary edema. 3. Congestive heart failure, diastolic. 4. History of coronary artery disease. 5. Chronic obesity. 6. Possible sleep apnea. The patient was never worked up in the past for that. 7. Chronic kidney disease. 8. Metabolic syndrome. 9. Hypercoagulable state. 10. Nicotine dependence. PLAN: Continue to diurese, Bumex 2 mg b.i.d. The patient can be discharged per pulmonary service. Cardiology has been following and the patient is noted to be on heparin drip and Coumadin and the patient's INR remained subtherapeutic. LABORATORY DATA: White cell count of 7.8, hemoglobin of 7.9, platelet count of 186. INR of 1. Chemistry: Sodium 139, BUN of 60, creatinine of 3.88. Modified barium swallow was performed yesterday, which showed normal modified barium swallow. Chest x-ray done this morning showed no active pulmonary disease, clearing of right lower infiltrate and/or atelectasis. JANET WOLF DO [place], [place] PROGRESS NOTE NAME: YOLA GARDUNO UNIT #: [id number] ROOM: 421 DOCTOR: JANET WOLF DO BIRTHDATE: [birth year] XU MAGALLON MD CM:PNNATHANIEL [id number] JANET WOLF DO 11/19/16 1453 interface
--- NOTE | ~2016-11-17 | PR ---
[place], [place] PROGRESS NOTE NAME: YOLA GARDUNO UNIT #: [id number] ROOM: 421 DOCTOR: JANET WOLF DO BIRTHDATE: [birth year] DOS: 11/20/2016 SUBJECTIVE: The patient was seen and evaluated this morning with Dr. Magallon. No nausea, vomiting, diarrhea, lightheadedness, dizziness, shortness of breath or chest pain noted. The patient denies of any complaints at this time. OBJECTIVE: VITAL SIGNS: Temperature 97.9, pulse 60, respiratory rate 18, blood pressure of 168/57, pulse ox of 96 on 2 liters nasal cannula. HEENT: No change. NECK: Supple. CARDIOVASCULAR: S1, S2 audible. Regular rate and rhythm. ABDOMEN: Soft, nontender, nondistended, positive bowel sounds. LUNGS: No respiratory distress. No rales, rhonchi or wheezing. diminished at the bases. EXTREMITIES: 1+ pitting edema in the lower extremity. ASSESSMENT: 1. Atrial fibrillation with rapid ventricular response. Cardiology service following. 2. Interstitial pulmonary edema, improving. 3. Congestive heart failure, diastolic, improving. 4. History of coronary artery disease. 5. Chronic obesity. 6. Possible sleep apnea. 7. Chronic kidney disease. 8. Metabolic syndrome. 9. Hypercoagulable state. 10. Nicotine dependence. PLAN OF TREATMENT: 1. Continue current plan of management. 2. The patient can be discharged from Pulmonary service. 3. The patient should follow up with Dr. Magallon in 2 weeks for workup for sleep apnea. 4. Cardiology service is following and the patient is on Coumadin, INR remains subtherapeutic. LABORATORY DATA: White cell count of 8.9, hemoglobin 8.3, platelet count 229. INR of 1, BUN 60, creatinine 3.85, sodium of 139. JANET WOLF DO [place], [place] PROGRESS NOTE NAME: YOLA GARDUNO UNIT #: [id number] ROOM: 421 DOCTOR: JANET WOLF DO BIRTHDATE: [birth year] XU MAGALLON MD CM:LAURA [phone] JANET WOLF DO 11/20/16 1527 interface
--- NOTE | ~2016-11-17 | PR ---
[place], [place] PROGRESS NOTE NAME: YOLA GARDUNO UNIT #: [id number] ROOM: 421 DOCTOR: XU CLARK MD BIRTHDATE: [birth year] DOS: 11/20/2016 SUBJECTIVE: The patient was independently seen and examined with ogpo-iz-[id number] encounter. History was reviewed. Labs were personally reviewed. Physical examination was performed. Any changes in the treatment or any recommendation for the patient's today's visit were personally made. Note done by the medical lab tech instructor was approved. The patient has been noted comfortable at this time and continued to show reduction of the symptoms of shortness of breath. There were no symptoms of coughing, sputum expectoration or chest pain. The patient has been continued on anticoagulation with use of the unfractionated therapeutic heparin which has been temporarily discontinued because of severe elevation in PTT greater than 250. The patient has been noted with mild cough. PHYSICAL EXAMINATION: VITAL SIGNS: Showed the heart rate remains in normal range at 60-66 beats per minute, blood pressure 168/57, respiratory rate was normal. The temperature was normal. The pulse oxygen saturation on 2 liters was 96% saturation. LUNGS: Noted without any wheezing or crackles, decreased breath sounds at lung bases. ABDOMEN: Soft and nontender. LABORATORY DATA: BMP today: BUN 60, creatinine 3.85. CBC, anemia. The patient noted hemoglobin 8.3, hematocrit 27.7. IMPRESSION: Progressive and gradual resolution of the congestive heart failure. The patient was noted with improvement in respiratory status, resolution of the area of atelectasis, interstitial edema, resolving acute on chronic kidney injury. PLAN OF MANAGEMENT: No changes from the pulmonary standpoint. Continue the patient on current therapy as in progress. Usual care, other supportive therapy, plan of care and management, plan of care. Addition of treatment changes could be made based on progression of illness. At this time, just symptomatic management would be advised. The patient needs to be assessed for sleep apnea disorder as an outpatient with current body habitus, atrial fibrillation and other medical issues, highly suggestive with diagnosis of obstructive sleep apnea disorder. [place], [place] PROGRESS NOTE NAME: YOLA GARDUNO UNIT #: [id number] ROOM: 421 DOCTOR: AZXU JACKSON MD BIRTHDATE: [birth year] XU MAGALLON MD CM:LAURA [phone] XU TONY MD 11/20/16 1849 interface
--- NOTE | ~2016-11-17 | PR ---
[place], [place] PROGRESS NOTE NAME: YOLA GARDUNO UNIT #: [id number] ROOM: 421 DOCTOR: XU CLARK MD BIRTHDATE: [birth year] DOS: 11/23/2016 SUBJECTIVE: He has been noted comfortable at this time, resting and sitting on the chair. The patient's shortness of breath continue to resolve progressively. The patient's anticoagulation continue be adjusted. The patient to make at therapeutic level of his INR. He has been continued with unfractionated heparin, the dose is being adjusted because of variable levels noted. He has not been noted with symptoms of hemoptysis. There was no cough. OBJECTIVE: VITAL SIGNS: Normal temperature, respiratory rate 20, heart rate 66, blood pressure 146/67. The pulse oxygen saturation on room air is 94% saturation. HEENT: Shows no acute change. NECK: Supple. CARDIOVASCULAR: S1, S2 audible. LUNGS: Noted without any wheezes or crackles. ABDOMEN: Soft, nontender. LABORATORY DATA: Renal function panel: BUN 66, creatinine 3.87. The PTT was noted as 177, which was significantly elevated above the therapeutic range. The INR was still noted subtherapeutic as 1.3, but gradually increasing. IMPRESSION: 1. The patient has been currently noted with atrial fibrillation current anticoagulation intravenously and orally. 2. Small pleural fluid was noted related to the congestive heart failure. 3. Acute on chronic injury which has been resolving currently noted to be likely baseline kidney functions. PLAN OF MANAGEMENT: Ordered the patient's CBC in the morning to assess the patient's platelet count because of the continued use of unfractionated heparin. Other supportive therapy, plan of management and care, usual treatment, other supportive plan of treatment and care. Other treatment changes continue be made for this patient based on the progression of the illness. [place], [place] PROGRESS NOTE NAME: YOLA GARDUNO UNIT #: [id number] ROOM: 421 DOCTOR: XU CLARK MD BIRTHDATE: [birth year] XU MAGALLON MD CM:PNTRANS 1330 1118 XU TONY MD 11/24/16 1118 interface
[2016-11-17 10:15] VITALS: BP 173/69
[~2016-11-17 10:15] MED LIST changes: +NOVOLIN 70100 UNIT/1 SC
[2016-11-17 10:58] VITALS: BP 175/61
[2016-11-17 11:02] LABS: BASO % 0.3 % (0.0-1.0); EOS % 0.3 % (1.0-4.0); HEMATOCRIT 29.1 % (42.0-52.0); HEMOGLOBIN 9.1 g/dl (14.0-18.0); LYMPH # 0.9 10*3/uL (1.3-4.4); LYMPH % 7.9 % (27.0-41.0); MEAN CELL VOLUME 82.7 fl (80.0-94.0); MEAN CORPUSCULAR HGB 25.9 pg (27.0-31.0); MEAN CORPUSCULAR HGB CONC 31.3 g/dl (33.0-37.0); MEAN PLATELET VOLUME 10.1 fl (9.6-12.3); MONO # 0.7 10*3/uL (0.1-1.0); MONO % 6.7 % (3.0-9.0); NEUT # 9.3 10*3/uL (2.3-7.9); NEUT % 84.2 % (47.0-73.0); PLATELET COUNT AUTOMATED 180 10*3/uL (130-400); RED BLOOD COUNT 3.52 10*6/uL (4.50-5.90); RED CELL DISTRI WIDTH 19.4 % (0-14.5); WHITE BLOOD COUNT 11.1 10*3/uL (4.8-10.8)
[2016-11-17 11:13] LABS: ACT PARTIAL THROMBO TIME 34.7 SECONDS (20.8-31.5)
[2016-11-17 11:18] LABS: ALBUMIN 2.8 gm/dl (3.1-4.5); CREATININE 4.5 mg/dL (0.70-1.30); MAGNESIUM 2.2 mg/dL (1.5-2.1); POTASSIUM 3.9 mmol/L (3.5-5.1); TOTAL PROTEIN 7.5 gm/dL (6.4-8.2)
[2016-11-17 11:22] VITALS: BP 178/65
[2016-11-17 11:23] LABS: TROPONIN I 0.092 ng/ml (<0.045)
--- NOTE | 2016-11-17 11:23 | NUR ---
PT RESTING IN BED, EYES CLOSED. NO DISTRESS.
[2016-11-17 12:30] VITALS: BP 156/73
--- NOTE | 2016-11-17 12:30 | NUR ---
ON ASSESSMENT PATIENT HAS A COBAN AND KERLIX WRAP TO LEFT LOWER FOOT AND ANKLE. PATIENT STATES THERE IS NO WOUND ON HIS FOOT AND THAT A WOUND MD SEES PT Q MONTH TO INSPECT THE FOOT AND WRAPS IT FOR PROTECTION ONLY.
--- NOTE | 2016-11-17 12:30 | NUR ---
A 61, admitted to ICCU, under the services of SEAMUS Pearl DO with a diagnosis of CHEST PAIN. Chief complaint is CHEST PAIN. Patient arrived via bed from ER. Monitor applied. Initial assessment completed. Vital signs taken and recorded. SEAMUS PEARL DO notified of admission to the unit. Orders received. See assessment for past medical history, medications and allergies. Patient and/or family oriented to unit. [facility] ICCU visitation policy reviewed. Clothing/patient valuable form completed. BRISA THOMPSON
--- NOTE | 2016-11-17 12:40 | NUR ---
DR SHAH CALLED TO NOTIFY OF ARRHYTHMIAS ON MONITOR AND PT REPORTED CHEST PAIN. DR SHAH STATED THAT SHE WOULD BE RIGHT UP TO SEE HIM. PT PLACED ON OXYGEN AND i CONTINUED TO MONITOR HIM UNTIL SHE ARRIVED.
--- NOTE | 2016-11-17 13:33 | NUR ---
PT GIVEN ONE DOSE NITRO FOR CHEST PAIN 09/15.
--- NOTE | 2016-11-17 13:40 | NUR ---
PT REPORTS SOME RELIEF WITH CHEST PAIN.
--- NOTE | 2016-11-17 13:45 | NUR ---
PT TRANSFERED TO ICCU ROOM 12 AT THIS TIME FROM [facility]. PT ALERT AND ORIENTED ON ARRIVAL TO ICU. BP 164/102. ATRIAL FIB WITH RATE OF 106-120. POX 90% ON 3L NC. DR URBINA AT BEDSIDE. DR RAMOS ALSO IN TO SEE PT AT THIS TIME.
--- NOTE | 2016-11-17 13:45 | NUR ---
PT TRANSFERRED TO ICU.
--- NOTE | 2016-11-17 13:47 | NUR ---
RECIEVED IN ICCU 12 FROM [facility] FOR CHEST PAIN AND "PAUSES" ON MONITOR PT AWAKE.ALERT,APPEARS SLEEPY, POX 89 ON NC2L, INCREASED TO 3L, DR LAWRENCE HERE AND DR VIERA AT BEDSIDE
--- NOTE | 2016-11-17 14:02 | NUR ---
Patient not available for echo. He is transferred to CCU 12. He is having other procedure done and not available for echo.
[2016-11-17 14:21] LABS: ABG HCO3 21.7 mmol/l (22-26); ABG O2 SATURATION 93.1 % (95-97); ARTERIAL BLOOD GAS PCO2 34.6 mmHg (35-45); ARTERIAL BLOOD GAS PH 7.412 (7.35-7.45); ARTERIAL BLOOD GAS PO2 62.1 mmHg (80-90)
--- NOTE | 2016-11-17 14:26 | NUR ---
DR MUELLER AT BEDSIDE AND AWARE OF PT'S ABG RESULTS.
--- NOTE | 2016-11-17 14:42 | NUR ---
DR QUINN MADE AWARE OF NEW CONSULT ORDER AND IN TO SEE PT AT THIS TIME.
[2016-11-17 16:00] VITALS: BP 158/88
--- NOTE | 2016-11-17 16:00 | NUR ---
PATIENT DENIES ANY CHEST PAIN AT THIS TIME, DOES REPORT ABDOMINAL PAIN, UPPER QUADS. AND STATES HE IS VERY TIRED, DUE TO NOT SLEEPING LAST NIGHT. NO PAUSES HAVE BEEN NOTED ON THE DECORATOR HAND. PATIENT REMAINS AFIB, RATES 80-100. NO DISTRESS AT THIS TIME. WILL CONTINUE TO MONITOR.
--- NOTE | 2016-11-17 16:56 | NUR ---
NOTIFIED DR. MAGALLON OF CONSULT. WILL SEE PATIENT IN THE AM.
[2016-11-17] MEDS ORDERED: COUMADIN3 M1 PO (17:39)
[2016-11-17] MEDS ORDERED: PROTONIX TR40 M1 PO (17:40)
[2016-11-17] MEDS ORDERED: METOPROLOL SUC100 M1 PO (17:41)
[2016-11-17] MEDS ORDERED: BUMETANIDE2 MG PO (19:14)
[2016-11-17] MEDS ORDERED: [UNRECOGNIZED DRUG - CODE] SC (19:15)
[2016-11-17] MEDS ORDERED: HEPARIN IV (19:16)
[2016-11-17] MEDS ORDERED: MIRALAX119 GM PO (19:19)
[2016-11-17 19:53] VITALS: BP 158/98
[2016-11-18] VITALS: BP 142/98
--- NOTE | 2016-11-18 00:30 | NUR ---
PATIENT RESTING, NO DISTRESS NOTED. RESTORIL EFFECTIVE.
[2016-11-18 03:15] LABS: BASO % 0.3 % (0.0-1.0); EOS # 0.1 10*3/uL (0.0-0.4); EOS % 1.3 % (1.0-4.0); HEMOGLOBIN 9.4 g/dl (14.0-18.0); LYMPH # 1.7 10*3/uL (1.3-4.4); LYMPH % 15.5 % (27.0-41.0); MEAN CELL VOLUME 82.2 fl (80.0-94.0); MEAN CORPUSCULAR HGB 25.8 pg (27.0-31.0); MEAN CORPUSCULAR HGB CONC 31.3 g/dl (33.0-37.0); MEAN PLATELET VOLUME 9.8 fl (9.6-12.3); MONO # 0.8 10*3/uL (0.1-1.0); MONO % 7.3 % (3.0-9.0); NEUT # 8.1 10*3/uL (2.3-7.9); NEUT % 75.1 % (47.0-73.0); PLATELET COUNT AUTOMATED 196 10*3/uL (130-400); RED BLOOD COUNT 3.65 10*6/uL (4.50-5.90); RED CELL DISTRI WIDTH 19.4 % (0-14.5); WHITE BLOOD COUNT 10.8 10*3/uL (4.8-10.8)
[2016-11-18 03:31] LABS: ALBUMIN 2.6 gm/dl (3.1-4.5); CREATININE 4.16 mg/dL (0.70-1.30); MAGNESIUM 2.1 mg/dL (1.5-2.1); PHOSPHOROUS 3.2 mg/dL (2.5-4.9); POTASSIUM 3.9 mmol/L (3.5-5.1); TOTAL PROTEIN 7.8 gm/dL (6.4-8.2)
[2016-11-18 03:36] LABS: THYROID STIM HORMONE (HS) 0.959 uIU/ml (0.358-4.75); TROPONIN I 0.05 ng/ml (<0.045)
[2016-11-18 04:00] VITALS: BP 168/96
[2016-11-18 04:02] LABS: VITAMIN D, 25-HYDROXY 14.3 ng/mL (30-100)
--- NOTE | 2016-11-18 04:10 | NUR ---
BEEPED REGARDING A-FIB PER CM. RATE 120-140'S.
--- NOTE | 2016-11-18 04:18 | NUR ---
RETURNED CALL. NEW ORDER RECEIVED FOR CARDIZEM BOLUS AND GTT.
--- NOTE | 2016-11-18 05:28 | NUR ---
PATIENT CONVERTED TO NSR PER CM-RATE 80'S. CARDIZEM GTT AT 5MG/HR
--- NOTE | 2016-11-18 07:54 | NUR ---
[facility] please re-order when medically appropriate. Thank you for this referral. Zoe Lees,PT
[2016-11-18 08:00] VITALS: BP 170/66
--- NOTE | 2016-11-18 09:37 | NUR ---
SPEECH PATHOLOGY Bedside swallow eval. completed as per orders. Patient was sleepy but able to maintain alertness to complete assessment. He was given thin liquid, puree and solid consistencies and displayed safe swallowing with all items given. No s/s aspiration were noted. Recommend patient remain on present diet. No follow up treatment is recommended at this time. Results and marquez. were shared with patient and his nurse and they verbalized understanding. Refer to report in [facility] for further information. Thank you for this referral. [facility]IDEO[facility]
[2016-11-18 12:00] VITALS: BP 160/80
[2016-11-18 14:21] LABS: BILIRUBIN NEGATIVE (NEGATIVE); BLOOD TRACE-INTACT (NEGATIVE); CLARITY CLEAR (CLEAR); COLOR YELLOW (YELLOW); GLUCOSE 1+ (NEGATIVE); KETONE NEGATIVE (NEGATIVE); LEUKO ESTERASE NEGATIVE (NEGATIVE); NITRITE NEGATIVE (NEGATIVE); PH 5.5 (5.0-9.0); UROBILINOGEN 0.2 E.U./dl (0.2-1.0)
[2016-11-18 14:30] LABS: BACTERIA TRACE; EPITHELIAL CELLS 15-20; WBC 0-2 wbc/hpf (0-5)
--- NOTE | 2016-11-18 15:45 | NUR ---
SPEECH PATHOLOGY MBS completed as per orders. Patient was challenged with puree, solid and thin liquid consistencies both by cup and straw. Oral and pharyngeal skills were WNL with all items given. Recommend patient remain on present diet. No follow up is warranted at this time. Results and marquez. were shared with patient and his nurse and they verbalized understanding. Dictated report to follow. Thank you for this referral. ANAHY FOSS MSCCC-DOOR GLASS INSTALLER
[2016-11-18 16:00] VITALS: BP 173/55
[2016-11-18 20:00] VITALS: BP 160/53
--- NOTE | 2016-11-18 20:00 | NUR ---
PATIENT IS RESTING QUIETLY IN BED. NO VOICED COMPLAINTS AT THIS TIME. 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 AND MISSING DIGITS TO HIS LEFT FOOT. HIS LEFT FOOT IS COVERED IN AN PAULINE BANDAGE AND IS REFUSING ANYONE TO REMOVE IT. THE EXPOSED SKIN IS DRY. HEPARIN DRIP MAINTAINED ORDERED. CALL LIGHT IS IN REACH.
--- NOTE | 2016-11-18 22:20 | NUR ---
PATIENT REQUESTED AND RECEIVED PRN RESTORIL ORDERED FOR C/O INSOMNIA.
--- NOTE | 2016-11-18 23:23 | NUR ---
NOTIFIED DR. AYALA OF CRITICAL APTT 188.6. NO NEW ORDERS AT THIS TIME
--- NOTE | 2016-11-18 23:30 | NUR ---
HEPARIN DRIP ON HOLD FOR 1 HR PER HEPARIN DRIP POLICY
[2016-11-19] VITALS: BP 156/62
[2016-11-19 05:58] LABS: BASO % 0.3 % (0.0-1.0); EOS # 0.3 10*3/uL (0.0-0.4); EOS % 4.3 % (1.0-4.0); HEMATOCRIT 26.1 % (42.0-52.0); HEMOGLOBIN 7.9 g/dl (14.0-18.0); LYMPH # 1.9 10*3/uL (1.3-4.4); MEAN CELL VOLUME 83.1 fl (80.0-94.0); MEAN CORPUSCULAR HGB 25.2 pg (27.0-31.0); MEAN CORPUSCULAR HGB CONC 30.3 g/dl (33.0-37.0); MEAN PLATELET VOLUME 10.2 fl (9.6-12.3); MONO # 0.6 10*3/uL (0.1-1.0); MONO % 7.3 % (3.0-9.0); NEUT % 63.3 % (47.0-73.0); PLATELET COUNT AUTOMATED 186 10*3/uL (130-400); RED BLOOD COUNT 3.14 10*6/uL (4.50-5.90); RED CELL DISTRI WIDTH 19.3 % (0-14.5); WHITE BLOOD COUNT 7.8 10*3/uL (4.8-10.8)
[2016-11-19 06:05] LABS: ALBUMIN 2.5 gm/dl (3.1-4.5); CREATININE 3.88 mg/dL (0.70-1.30); MAGNESIUM 2.3 mg/dL (1.5-2.1); PHOSPHOROUS 3.9 mg/dL (2.5-4.9); POTASSIUM 3.7 mmol/L (3.5-5.1)
[2016-11-19 06:07] LABS: TOTAL PROTEIN 6.9 gm/dL (6.4-8.2)
[2016-11-19 08:00] VITALS: BP 160/73
--- NOTE | 2016-11-19 08:27 | NUR ---
IN BED EATING BREAKFAST. DENIES C/O. WILL CONT TO MONITOR. CALL LIGHT IN REACH. SEE ASSESS. LABS REVIEWED.
--- NOTE | 2016-11-19 08:52 | NUR ---
NOTIFIED DR SHAH AND DR SHAVER OF H&H AND THAT HEPARIN DRIP IS STILL RUNNING. DR SHAVER STATED WE WILL RECHECK [facility]&H LATER.
--- NOTE | 2016-11-19 09:00 | NUR ---
Truss Builder in to talk to patient. Patient states lives at home with family. There are no steps in the home. Physician: cale chaudhari [facility] services: none at this time Patient's level of ADLs: MINIMAL ASSIST Patient has working utilities: all working DME: wheelchair, walker,no home oxygen Follow-up physician's appointment after d/c: will be made by hospitalist nurse director upon discharge Does patient want to access PORTAL?: no Discharge plan discussed with patient, patient states he lives at home with family and will be going back when able, he states he doesn't have any vna at this time, but would like [facility] for nursing, pt and ot, he states he had a leg amputation in August of this year and has been unable to get a prosthetic leg due to no therapy, will have dischare liaison planner send referral to [facility] for when patient is medically stable for discharge. PAYAL AGUIRRE
[2016-11-19 12:00] VITALS: BP 154/62
[2016-11-19 13:16] LABS: HEMATOCRIT 26.6 % (42.0-52.0); HEMOGLOBIN 8.4 g/dl (14.0-18.0)
[2016-11-19 16:00] VITALS: BP 153/65
--- NOTE | 2016-11-19 18:00 | NUR ---
PT OOB IN RECLINER WATCHING TV, DENIES WANTS/NEEDS. WILL CONT TO MONITOR. CALL LIGHT IN REACH.
--- NOTE | 2016-11-19 19:56 | NUR ---
OOB IN CHAIR EATING AT THIS TIME. PATIENTS ONLY COMPLAINT AT THIS TIME IS NEUROPATHY PAIN. NO SXS OF DISTRESS. DENIES SOB. ON 2L NC. RIGHT BKA. MISSING DIGITS ON HIS LEFT FOOT. HE HAS AN PAULINE WRAP TO THE LEFT FOOT AND REFUSES ANYONE TO REMOVE IT. PPP. HEPARIN DRIP MAINTAINED ORDERD. CALL LIGHT IS IN REACH.
[2016-11-19 20:00] VITALS: BP 170/74
--- NOTE | 2016-11-19 22:00 | NUR ---
PATIENT IS RESTING OOB IN CHAIR AT THIS TIME. NO VOICED COMPLAINTS. HEPARIN DRIP MAINTAINED ORDERED. CALL LIGHT IN REACH.
[2016-11-20] VITALS: BP 159/90
--- NOTE | 2016-11-20 01:23 | NUR ---
SLEEPING OOB IN CHAIR. RESPIRATIONS EASY/REGULAR. NO SXS OF DISTRESS NOTED. HEPARIN DRIP MAINTAINED PER ORDER. CALL LIGHT IN REACH
--- NOTE | 2016-11-20 03:19 | NUR ---
PATIENT RESTING QUIETLY WATCHING TV. NO VOICED COMPLAINTS AT THIS TIME.
--- NOTE | 2016-11-20 04:09 | NUR ---
PATIENT IS NOW ASLEEP. NO SXS OF DISTRESS. RESPIRATIONS EASY/REGULAR. HEPARIN DRIP MAINTAINED. CALL LIGHT IN REACH.
[2016-11-20 06:03] LABS: BASO % 0.3 % (0.0-1.0); EOS # 0.4 10*3/uL (0.0-0.4); EOS % 4.3 % (1.0-4.0); HEMATOCRIT 27.7 % (42.0-52.0); HEMOGLOBIN 8.3 g/dl (14.0-18.0); LYMPH # 2.1 10*3/uL (1.3-4.4); LYMPH % 24.1 % (27.0-41.0); MEAN CELL VOLUME 83.4 fl (80.0-94.0); MEAN PLATELET VOLUME 10.2 fl (9.6-12.3); MONO # 0.6 10*3/uL (0.1-1.0); MONO % 6.6 % (3.0-9.0); NEUT # 5.6 10*3/uL (2.3-7.9); NEUT % 63.1 % (47.0-73.0); PLATELET COUNT AUTOMATED 229 10*3/uL (130-400); RED BLOOD COUNT 3.32 10*6/uL (4.50-5.90); RED CELL DISTRI WIDTH 19.2 % (0-14.5); WHITE BLOOD COUNT 8.9 10*3/uL (4.8-10.8)
[2016-11-20 06:27] LABS: CREATININE 3.85 mg/dL (0.70-1.30); POTASSIUM 3.8 mmol/L (3.5-5.1)
--- NOTE | 2016-11-20 06:41 | NUR ---
DR. AYALA NOTIFIED OF CRITICAL APTT >250. NO NEW ORDERS AT THIS TIME. HEPARIN DRIP STOPPED PER PROTOCOL AT THIS TIME.
[2016-11-20 08:00] VITALS: BP 168/57
--- NOTE | 2016-11-20 09:00 | NUR ---
case management visits with patient, patient wanted [facility] to see him at home, [facility] is not able to see patient at this time, automatic data processing planner will contact another home health company to see patient
[2016-11-20 10:00] LABS: ACT PARTIAL THROMBO TIME > 250.0 SECONDS (20.8-31.5)
--- NOTE | 2016-11-20 10:53 | NUR ---
PHYSICAL THERAPY PAtient evaluated on 4, full evaluation to dawn. Continue with PT as pe rplmnakf care with fall and max (A) x 2 precautions. Home, as prior, with home health complete services as patient will comply. Patient is moderate complexity via chart review, tests and evaluation: 47935. Thank you for this referral. Zoe Lees,PT
--- NOTE | 2016-11-20 11:06 | NUR ---
Occupational Therapy evaluation completed on 4 with full eval to follow.Precautions include fall risk, R BKA, obesity, +MRSA left finger, mild edema left hand, severely impaired sensation both hands and left foot, w/c dependent in the home, moderate complexity level 62034. Recommend OT per POC and home with home health OT,PT,SN as patient refuses SNF. Thank you for this referral. Milagros Hand OTR/l
--- NOTE | 2016-11-20 11:14 | NUR ---
Nutritional Support Services Note: Pt ordered an 1800cal diet with Boost Glucose Control tid with meals. Appetite is good for meals. Ht.6'4 Wt.339# Discussing diet with pt. No questions at this time. Will follow as needed. No other nutrition intervention needed at this time. Joana Duvall
[2016-11-20 12:00] VITALS: BP 156/86
--- NOTE | 2016-11-20 12:49 | NUR ---
PHYSICAL THERAPY Mr Mendez was seen this PM X 2. Pt eating his lunch at this time. Stopped back and Edd said tomorrow wanted his food to digst having stomach pain. I encouraged Edd to Ex, Ex Ex to strengthen left LE for standing. He said that he is moving his leg and ankle. SRINIVAS GARCÍA DIRECTOR OF MATERNITY SERVICES.
[2016-11-20 16:00] VITALS: BP 158/69
[2016-11-20 20:00] VITALS: BP 159/72
[2016-11-21] VITALS: BP 148/80
--- NOTE | 2016-11-21 05:00 | NUR ---
PATIENT MEDICATED WITH RESTORIL AT 2203 FOR COMPLAINTS OF INSOMNIA WITH EFFECTIVE RESULTS NOTED. RESTING IN BED WITH EYES CLOSED AT THIS TIME. NO SIGNS OR SYMPTOMS OF DISTRESS NOTED. WILL CONTINUE TO MONITOR. CALL LIGHT IN REACH.
[2016-11-21 08:00] VITALS: BP 156/55
--- NOTE | 2016-11-21 08:37 | NUR ---
PHYSICAL THERAPY Edd seen this AM 1:1 for his physical therapy session. Pt eating his breskfast at this time. I ask when i might come back and see his and he said that it wont be for the next hour blanca going to eat! SRINIVAS GARCÍA PHILANTHROPY OFFICER.
[2016-11-21 09:14] LABS: ALBUMIN 2.8 gm/dl (3.1-4.5); CREATININE 3.86 mg/dL (0.70-1.30); MAGNESIUM 2.2 mg/dL (1.5-2.1); POTASSIUM 3.7 mmol/L (3.5-5.1)
[2016-11-21 09:15] LABS: PHOSPHOROUS 3.3 mg/dL (2.5-4.9)
--- NOTE | 2016-11-21 10:37 | NUR ---
PHYSICAL THERAPY Back this AM to see Mr Mendez and was sleeping sound did not arouse, will stop back. SRINIVAS GARCÍA STORY ANALYST.
--- NOTE | 2016-11-21 10:38 | NUR ---
PHYSICAL THERAPY Stopped back in to see Pt this AM and Edd was up in his bedside chair by his aid. I ask if he wanter to stand again and said that he was too winded now. I sak if there was anything i could do and he said watch TV with him. SRINIVAS GARCÍA DINKEY ENGINE OPERATOR.
--- NOTE | 2016-11-21 11:07 | NUR ---
master planner in to see patient. Stated he is not currently active with any home health agencies at this time. Provided list of companies, he stated he is not familiar with any of them and just try to find one that will accept him. [facility] stated they will not readmit this patient. Contacted [facility] and faxed referral. Waiting to see if they accept this patient.
[2016-11-21 12:00] VITALS: BP 150/59
--- NOTE | 2016-11-21 12:33 | NUR ---
PHYSICAL THERAPY Edd seen this PM 1:1 for his therapy session. Pt was up in his bedside chair. Said that he was not feeling so good and i havent ordered my lunch yet. Pt not wanting up. SRINIVAS GARCÍA HEAD OF STRATEGY.
--- NOTE | 2016-11-21 13:17 | NUR ---
UPDATED MEDICATION LIST WITH PHARMACY.
[2016-11-21 16:00] VITALS: BP 149/60
[2016-11-21 20:00] VITALS: BP 136/52
[2016-11-22] VITALS: BP 148/68
[2016-11-22 05:55] LABS: ALBUMIN 2.7 gm/dl (3.1-4.5); CREATININE 3.71 mg/dL (0.70-1.30); MAGNESIUM 2.1 mg/dL (1.5-2.1); POTASSIUM 3.9 mmol/L (3.5-5.1)
[2016-11-22 05:56] LABS: PHOSPHOROUS 3.8 mg/dL (2.5-4.9)
[2016-11-22 06:43] LABS: INTERNATIONAL NORM RATIO 1.2 (2.0-3.5)
[2016-11-22 06:47] LABS: ACT PARTIAL THROMBO TIME 197.4 SECONDS (20.8-31.5)
--- NOTE | 2016-11-22 06:56 | NUR ---
DR. PORTER ADVISED OF APPT LEVEL 191.0 HEPARIN PROTOCAL FOLLOWED HEPARIN SHUT [place] 0652 AND WILL NEED TURNED ON AND RATE DECREASED BY 3 UNITS. APPT ORDERED FOR 1352.
[2016-11-22 08:00] VITALS: BP 160/80
--- NOTE | 2016-11-22 08:00 | NUR ---
RESTING QUIETLY NO C/O NO DISTRESS NOTED. STATES HE IS FEELING BETTER. HEPARIN DRIP RESUMED AT 0752. SEE SHIFT ASSESSMENT.
[2016-11-22 12:00] VITALS: BP 171/75
--- NOTE | 2016-11-22 14:45 | NUR ---
LAB CALLED WITH CRITICAL PTT. HEPARIN DRIP STOPPED PER POLICY. WILL RESTART AT 1545 AND PTT ORDERED FOR 2044
[2016-11-22 16:00] VITALS: BP 158/60
[2016-11-22 20:00] VITALS: BP 136/58
--- NOTE | 2016-11-22 20:00 | NUR ---
SLEEPING. NO DISTRESS NOTED. RESPIRATIONS EASY. HEPARIN DRIP MAINTAINED. CALL LIGHT WITHIN REACH
--- NOTE | 2016-11-22 22:24 | NUR ---
REQUESTED AND RECEIVED RESTORIL PER PRN ORDER TO ASSIST WITH SLEEP. CALL LIGHT WITHIN REACH. WILL MONITOR
[2016-11-23] VITALS: BP 161/71
--- NOTE | 2016-11-23 | NUR ---
EARLIER MEDS APPEAR EFFECTIVE. SLEEPING. RESPIRATIONS EASY. VSS. CALL LIGHT WITHIN REACH.
--- NOTE | 2016-11-23 06:00 | NUR ---
RETED THROUGHOUT NIGHT WITH NO DISTRESS NOTED. RESPIRATIONS EASY. HEPARIN DRIP MAINTAINED PER ORDER. CALL LIGHT WITHIN REACH. NO VOICED COMPLAINTS THIS SHIFT
[2016-11-23 06:28] LABS: INTERNATIONAL NORM RATIO 1.3 (2.0-3.5)
--- NOTE | 2016-11-23 06:30 | NUR ---
PTT 171/8. HEPARIN DRIP ADJUSTED PER POLICY
[2016-11-23 06:31] LABS: ACT PARTIAL THROMBO TIME 171.8 SECONDS (20.8-31.5)
[2016-11-23 06:33] LABS: ALBUMIN 2.8 gm/dl (3.1-4.5); CREATININE 3.87 mg/dL (0.70-1.30); PHOSPHOROUS 4.2 mg/dL (2.5-4.9); POTASSIUM 3.8 mmol/L (3.5-5.1)
[2016-11-23 08:00] VITALS: BP 154/58
[2016-11-23 12:00] VITALS: BP 146/67
--- NOTE | 2016-11-23 14:46 | NUR ---
LAB CALLED WITH CRITICAL PTT OF> 250. DR PEGUERO NOTIFIED THAT DISPITE DECREASING RATE OF HEPARIN PTT CONTINUES TO BE ELEVATED. NO NEW ORDERS RECIEVED.
[2016-11-23 16:00] VITALS: BP 152/68
[2016-11-23 20:00] VITALS: BP 181/70
--- NOTE | 2016-11-23 20:00 | NUR ---
ASSUMED CARE OF PATIENT. ASSESSMENT COMPLETE. PT ASSISTED BACK TO BED, TOELRATED WELL. CALL LIGHT IN REACH. WILL CONTINUE TO MONITOR.
--- NOTE | 2016-11-23 21:32 | NUR ---
APTT 729. NO CHANGES MADE AT THIS TIME. APTT ORDERED FOR AM
[2016-11-24] VITALS: BP 147/81
--- NOTE | 2016-11-24 00:06 | NUR ---
REQUESTING SLEEPING PILL. MEDICATED WITH PRN RESTORIL AT THIS TIME.
--- NOTE | 2016-11-24 02:00 | NUR ---
SLEEPING. RESP EASY AND NONLABORED ON ROOM AIR. NO DISTRESS NOTED. HEPARIN GTT INFUSING WITHOUT DIFFICULTY. CALL LIGHT IN REACH. WILL CONTINUE TO MONITOR.
[2016-11-24 07:04] LABS: BASO % 0.4 % (0.0-1.0); EOS # 0.1 10*3/uL (0.0-0.4); EOS % 1.3 % (1.0-4.0); HEMATOCRIT 28.4 % (42.0-52.0); HEMOGLOBIN 8.7 g/dl (14.0-18.0); LYMPH # 1.1 10*3/uL (1.3-4.4); LYMPH % 11.9 % (27.0-41.0); MEAN CELL VOLUME 83.8 fl (80.0-94.0); MEAN CORPUSCULAR HGB 25.7 pg (27.0-31.0); MEAN CORPUSCULAR HGB CONC 30.6 g/dl (33.0-37.0); MEAN PLATELET VOLUME 9.5 fl (9.6-12.3); MONO # 0.8 10*3/uL (0.1-1.0); MONO % 8.1 % (3.0-9.0); NEUT # 7.2 10*3/uL (2.3-7.9); PLATELET COUNT AUTOMATED 278 10*3/uL (130-400); RED BLOOD COUNT 3.39 10*6/uL (4.50-5.90); RED CELL DISTRI WIDTH 20.1 % (0-14.5); WHITE BLOOD COUNT 9.3 10*3/uL (4.8-10.8)
[2016-11-24 07:41] LABS: ACT PARTIAL THROMBO TIME 71.5 SECONDS (20.8-31.5); INTERNATIONAL NORM RATIO 1.6 (2.0-3.5)
[2016-11-24 08:00] VITALS: BP 180/76
--- NOTE | 2016-11-24 08:00 | NUR ---
APTT THIS AM 71.5. NO CHANGES PER POLICY TO HEPARIN AT THIS TIME.
--- NOTE | 2016-11-24 09:30 | NUR ---
PT REFUSED AM 70/30 INSULIN MORNING GLUCOSE WAS 115. HE STATES HE ONLY TAKES IT IF GLUCOSE IN THE MORNING IS ABOVE 150. CALL LIGHT IN REACH WILL MONITOR
--- NOTE | 2016-11-24 10:00 | NUR ---
PHYSICAL THERAPY Edd door was shut and he was sleeping sound, will stop back later. SRINIVAS GARCÍA JOB PRESS FEEDER.
--- NOTE | 2016-11-24 10:02 | NUR ---
PHYSICAL THERAPY Back to see Edd this AM 1:1. Pt was up in his bedside chair said that he just got up. I tried standing Edd X 3, with MAX A X 1, verbal cues to push off from his chair and up into standing on the count of three and couldnot stand at this visit. Said that his right hand, arm was weak and just could not push off to get up at this time. SRINIVAS GARCÍA DINKEY MOTOR OPERATOR.
[2016-11-24] MEDS ORDERED: DOXYCYCLINE100 M3 PO (10:57)
[2016-11-24] MEDS ORDERED: COUMADIN5 M2 PO (10:57)
[2016-11-24] MEDS ORDERED: METOLAZONE5 MG PO (10:57)
[2016-11-24] MEDS ORDERED: VITAMIN D31000 UNI1 PO (10:57)
[2016-11-24] MEDS ORDERED: B12,B-12,B 12500 MC1 PO (10:57)
[2016-11-24 12:00] VITALS: BP 158/64
--- NOTE | 2016-11-24 12:00 | NUR ---
Patient resting quietly with no c/o discomfort. Respirations easy and regular. Vital signs stable. No overt distress. YAMILET BELTRE R
--- NOTE | 2016-11-24 12:46 | NUR ---
[facility], faxed [facility] information.
--- NOTE | 2016-11-24 13:48 | NUR ---
Discharge instructions reviewed with patient/family. Patient receptive and verbalizes understanding. Follow-up care arranged. Written instructions given to patient/family. YAMILET BELTRE
--- NOTE | 2016-11-25 07:46 | NUR ---
PHYSICAL THERAPY CO-SIGN I approve of the Phyical Therapy notes written above. GRAHAM ALEMAN PT
== END 2016-11-24 13:48 | disposition home health service (06) | DRG 177 ==
LOC: ED 10:15 → EDHOLD 11:50 → 4E 11:50 → ICCU 11:50 → 4E 11:55 → ICCU 13:55 → 4E 11-18 13:41
PROVIDERS: Internal Medicine; Internal Medicine Critical Care Medicine; Internal Medicine Hospice and Palliative Medicine; Internal Medicine Nephrology; Physician Assistant; ADMIT Internal Medicine
PROC: BD11YZZ Fluoroscopy of Esophagus using Other Contrast (ICD-10-PCS; principal; 2016-11-18)
DX: J69.0 Pneumonitis due to inhalation of food and vomit (principal); J96.01 Acute respiratory failure with hypoxia; N17.0 Acute kidney failure with tubular necrosis; G93.41 Metabolic encephalopathy; E43 Unspecified severe protein-calorie malnutrition; D68.59 Other primary thrombophilia; I13.2 Hypertensive heart and chronic kidney disease with heart failure and with stage 5 chronic kidney disease, or end stage renal disease; N18.5 Chronic kidney disease, stage 5; I50.32 Chronic diastolic (congestive) heart failure; J98.11 Atelectasis; Z68.41 Body mass index [BMI] 40.0-44.9, adult; F41.9 Anxiety disorder, unspecified; K21.9 Gastro-esophageal reflux disease without esophagitis; M10.9 Gout, unspecified; E78.5 Hyperlipidemia, unspecified; E66.01 Morbid (severe) obesity due to excess calories; I48.0 Paroxysmal atrial fibrillation; E11.42 Type 2 diabetes mellitus with diabetic polyneuropathy; E11.22 Type 2 diabetes mellitus with diabetic chronic kidney disease; D63.1 Anemia in chronic kidney disease; E11.65 Type 2 diabetes mellitus with hyperglycemia; M47.22 Other spondylosis with radiculopathy, cervical region; D72.825 Bandemia; F17.210 Nicotine dependence, cigarettes, uncomplicated; I25.10 Atherosclerotic heart disease of native coronary artery without angina pectoris; E11.51 Type 2 diabetes mellitus with diabetic peripheral angiopathy without gangrene; Z89.422 Acquired absence of other left toe(s); Z79.01 Long term (current) use of anticoagulants; Z79.02 Long term (current) use of antithrombotics/antiplatelets; Z79.4 Long term (current) use of insulin; Z79.899 Other long term (current) drug therapy; I25.2 Old myocardial infarction; Z86.718 Personal history of other venous thrombosis and embolism; Z87.81 Personal history of (healed) traumatic fracture; Z89.511 Acquired absence of right leg below knee; Z71.6 Tobacco abuse counseling; Z83.3 Family history of diabetes mellitus; Z82.49 Family history of ischemic heart disease and other diseases of the circulatory system; Z83.49 Family history of other endocrine, nutritional and metabolic diseases; Z80.8 Family history of malignant neoplasm of other organs or systems; T45.515A Adverse effect of anticoagulants, initial encounter; Y92.89 Other specified places as the place of occurrence of the external cause

== ENCOUNTER 2016-11-27 19:35 | Inpatient (IN) | payer MEDICARE ==
[~2016-11-27] VITALS: Ht 193 cm; Wt 151.7 kg
--- NOTE | ~2016-11-27 | PR ---
[place], [place] PROGRESS NOTE NAME: [id number] UNIT #: [id number] ROOM: 402 DOCTOR: GEENA ESPOSITO,MERRILL Zhu BIRTHDATE: [birth year] DOS: 11/29/2016 SUBJECTIVE: The patient was seen and examined. He is awake and alert. He is on room air. He is lying in bed. He denied nausea or vomiting. He is feeling tired and is about the same. PHYSICAL EXAMINATION: VITAL SIGNS: Temperature 99.1, pulse 71, respiratory rate 18 and blood pressure 158/60. HEENT: Shows no JVD. LUNGS: Had diminished breath sounds. No wheeze. HEART: Normal S1, S2. No rub, thrill or gallop. ABDOMEN: Soft, nontender. EXTREMITIES: Had 1-2+ edema. LABORATORY DATA: Hemoglobin 9.5, white count 13.3, platelets of 333. Sodium 139, potassium 4.9, CO2 of 25, BUN 70, creatinine 4.56 and calcium of 9.0. Blood culture from November 27 showed no growth to date. IMPRESSION AND PLAN: 1. Stage V chronic kidney disease. The patient's creatinine appears to be near baseline. He has had fluctuating creatinine levels at times. 2. Anemia. Continue p.r.n. erythropoietin stimulating agents. 3. Hypertension. Continue meds. 4. Chest pain. This seems to be atypical. Workup ongoing. 5. Leukocytosis. Blood cultures have been negative. MERRILL SEAY MD CM:PNTRANS 11 29 MERRILL SEAY MD 11/29/162229 interface
--- NOTE | ~2016-11-27 | PR ---
[place], [place] PROGRESS NOTE [id number] UNIT #: [id number] ROOM: 402 DOCTOR: MERRILL SEAY MD BIRTHDATE: [birth year] DOS: 11/30/2016 SUBJECTIVE: The patient was seen and examined. He is awake and alert. He is sitting in a chair. He denies shortness of breath. He still has chest pains, but seems to be okay. PHYSICAL EXAMINATION: VITAL SIGNS: Showed temperature 98.7, pulse 73, respiratory rate 20, blood pressure 150/63. HEENT: Shows no JVD. LUNGS: Diminished breath sounds. No wheeze. HEART: Normal S1, S2. No rub, thrill. No gallop. ABDOMEN: Soft, nontender. There is no organomegaly. EXTREMITIES: Had 1+ to 2+ edema. SKIN: Showed no rash. LABORATORY DATA: Hemoglobin 8.9, white count 10.7, platelets of 291, BUN 77, creatinine 4.6, glucose 84, sodium 139, potassium 4.1, CO2 of 25, calcium 9.2. IMPRESSION: 1. Stage V chronic kidney disease. The patient's creatinine level is fairly stable and is near baseline with fluctuating creatinine levels at times. Continue to follow progress. Dose medications for current creatinine clearance. Diuretics as needed. 2. Anemia. Continue as needed, erythropoietin stimulating agents. 3. Hypertension. Continue medications. 4. Chest pain, which appears to be atypical. Workup ongoing and remains with continued issue. 5. Leukocytosis. Blood cultures have been negative to date and the patient's white count has improved. MERRILL SEAY MD CM:PNTRANS [id number] MERRILL SEAY MD 11/30/162301 interface
--- NOTE | ~2016-11-27 | EKG ---
[place], [place] ELECTROCARDIOGRAM REPORT NAME: YOLA GARDUNO UNIT #: [id number] ROOM: 402 DOCTOR: NAUN TONY MD,XU BIRTHDATE: [birth year] DOS: 11/27/2016 ELECTROCARDIOGRAM REPORT TIME: 0807 PM The patient rate was noted as atrial flutter with rapid rate as 108 beats per minute. Poor R-wave progression was noted in the patient in the chest leads as well as possible old inferior myocardial infarction was also suggested by this electrocardiogram. XU MAGALLON MD CM:EKGRPT:ELECTROCARDIOGRAM REPORT [id number] XU TONY MD
[2016-11-27 19:35] VITALS: BP 160/75
[~2016-11-27 19:35] MED LIST changes: +COUMADIN3 M1 PO; +COUMADIN5 M2 PO; +DOXYCYCLINE100 M3 PO; +HEPARIN IV; +MIRALAX119 GM PO; +PROTONIX TR40 M1 PO; +VITAMIN D31000 UNI1 PO; +[UNRECOGNIZED DRUG - CODE] SC
[2016-11-27 20:15] LABS: BASO % 0.4 % (0.0-1.0); EOS # 0.2 10*3/uL (0.0-0.4); EOS % 2.3 % (1.0-4.0); HEMATOCRIT 28.7 % (42.0-52.0); HEMOGLOBIN 8.8 g/dl (14.0-18.0); LYMPH # 1.7 10*3/uL (1.3-4.4); LYMPH % 17.6 % (27.0-41.0); MEAN CELL VOLUME 84.7 fl (80.0-94.0); MEAN CORPUSCULAR HGB CONC 30.7 g/dl (33.0-37.0); MEAN PLATELET VOLUME 9.6 fl (9.6-12.3); MONO # 0.8 10*3/uL (0.1-1.0); MONO % 8.4 % (3.0-9.0); NEUT # 6.8 10*3/uL (2.3-7.9); NEUT % 70.7 % (47.0-73.0); PLATELET COUNT AUTOMATED 287 10*3/uL (130-400); RED BLOOD COUNT 3.39 10*6/uL (4.50-5.90); RED CELL DISTRI WIDTH 19.9 % (0-14.5); WHITE BLOOD COUNT 9.6 10*3/uL (4.8-10.8)
[2016-11-27 20:33] LABS: ACT PARTIAL THROMBO TIME 29.8 SECONDS (20.8-31.5); INTERNATIONAL NORM RATIO 1.3 (2.0-3.5)
[2016-11-27 20:39] LABS: ALBUMIN 2.9 gm/dl (3.1-4.5); CREATININE 5.08 mg/dL (0.70-1.30); POTASSIUM 4.3 mmol/L (3.5-5.1); TOTAL PROTEIN 7.7 gm/dL (6.4-8.2)
[2016-11-27 20:40] LABS: TROPONIN I 0.015 ng/ml (<0.045)
[2016-11-27 21:10] VITALS: BP 154/82
--- NOTE | 2016-11-27 23:10 | NUR ---
GAVE PATIENT UPDATE. PT RESTING IN BED. VSS. NO DISTRESS.
[2016-11-27 23:53] VITALS: BP 154/86
--- NOTE | 2016-11-27 23:53 | NUR ---
PT MOVED TO INPATIENT BED IN ROOM 3. ABLE TO MOVE SELF OVER ONTO BED. URINAL AT BEDSIDE. VSS.
[2016-11-28] VITALS (13 sets, daily range): BP systolic 126–186; BP diastolic 55–85
--- NOTE | 2016-11-28 01:43 | NUR ---
NURSE TO NURSE REPORT GIVEN TO THIS RN.PT RESTING IN BED.VITALS REASSESSED.FLUIDS CONTINUE TO INFUSE.
[2016-11-28 03:08] LABS: BASO % 0.3 % (0.0-1.0); EOS # 0.2 10*3/uL (0.0-0.4); EOS % 1.8 % (1.0-4.0); HEMATOCRIT 30.9 % (42.0-52.0); HEMOGLOBIN 9.3 g/dl (14.0-18.0); LYMPH # 1.8 10*3/uL (1.3-4.4); LYMPH % 17.3 % (27.0-41.0); MEAN CELL VOLUME 85.1 fl (80.0-94.0); MEAN CORPUSCULAR HGB 25.6 pg (27.0-31.0); MEAN CORPUSCULAR HGB CONC 30.1 g/dl (33.0-37.0); MONO # 0.7 10*3/uL (0.1-1.0); MONO % 6.6 % (3.0-9.0); NEUT # 7.4 10*3/uL (2.3-7.9); NEUT % 73.5 % (47.0-73.0); PLATELET COUNT AUTOMATED 296 10*3/uL (130-400); RED BLOOD COUNT 3.63 10*6/uL (4.50-5.90); RED CELL DISTRI WIDTH 19.7 % (0-14.5); WHITE BLOOD COUNT 10.1 10*3/uL (4.8-10.8)
[2016-11-28 03:18] LABS: ACT PARTIAL THROMBO TIME 28.4 SECONDS (20.8-31.5); INTERNATIONAL NORM RATIO 1.3 (2.0-3.5)
[2016-11-28 03:25] LABS: ALBUMIN 3.1 gm/dl (3.1-4.5); CREATININE 4.81 mg/dL (0.70-1.30); MAGNESIUM 1.9 mg/dL (1.5-2.1); PHOSPHOROUS 4.6 mg/dL (2.5-4.9); POTASSIUM 4.6 mmol/L (3.5-5.1); TOTAL PROTEIN 8.2 gm/dL (6.4-8.2)
[2016-11-28 03:26] LABS: FREE T4 1.05 ng/dl (0.76-1.46)
[2016-11-28 03:31] LABS: THYROID STIM HORMONE (HS) 1.2 uIU/ml (0.358-4.75)
[2016-11-28 03:58] LABS: VITAMIN D, 25-HYDROXY 13.6 ng/mL (30-100)
--- NOTE | 2016-11-28 05:25 | NUR ---
PT REPORTS PAIN REMAINS 11/16, PT REPOSITIONED IN BED.PILLOW ADJUSTED.PT MEDICATED 1 NORCO TAB PER EMAR.PT SYSTOLIC BP REMAINS ELEVATED 185/72, PT MEDICATED 0.2MG CATAPRESS PER EMAR FOR SYSTOLIC BP >160.
--- NOTE | 2016-11-28 07:42 | NUR ---
ACCEPTED PATIENT REPORT. PATIENT CONTINUES TO COMPLAIN OF RIB PAIN DESPITE PAIN MEDICATIONS. PATIENT ALERT AND ORITENTED X 3. RIB XRAY ORDERED. VITALS STABLE.
--- NOTE | 2016-11-28 08:35 | NUR ---
BLOOD SUGAR OF 150 PATIENT REFUSES INSULIN DOSE THIS AM
--- NOTE | 2016-11-28 09:13 | NUR ---
A 61, admitted to 4E, under the services of EMMETT Black DO with a diagnosis of CHEST PAIN,CKD Chief complaint is CHEST PAIN. Patient arrived via CART from ER. Monitor applied. Initial assessment completed. Vital signs taken and recorded. EMMETT BLACK DO notified of admission to the unit. Orders received. See assessment for past medical history, medications and allergies. Patient and/or family oriented to unit. [facility] visitation policy reviewed. Clothing/patient valuable form completed. NOEMI KILPATRICK
--- NOTE | 2016-11-28 09:49 | NUR ---
NOTIFIED DR WONG OF NEW CONSULT FOR EXISTING PT FOR ESRD VS ACUTE ON CHRONIC CRF. AWAITING CALL BACK.
--- NOTE | 2016-11-28 12:35 | NUR ---
DILAUDID 1 MG GIVEN FOR C/O BACK PAIN,12/16.
--- NOTE | 2016-11-28 13:37 | NUR ---
ATTEMPTED TO RECONCILE MEDS WITH LULA RIGGS'S PHARMACIST [facility] PHARMACIST,SHWETA, AND ALEX KHALIL'S PHARMACIST WAS UNABLE TO RECONCILIATE ALL MEDS D/T PT NOT REFILLING THEM FOR 6 MTHS TO A YEAR. NOTIFIED DR BROWN.
--- NOTE | 2016-11-28 14:12 | NUR ---
NORCO 5/325 MG GIVEN FOR C/O BACK PAIN,12/16.
[2016-11-29] VITALS: BP 154/71
--- NOTE | 2016-11-29 02:10 | NUR ---
PATIENT MEDICATED WITH DILAUDID PER PRN ORDER FOR C/O PAIN. RATED PAIN A 8/10 WITH 10 BEING THE WORST. SEE EMAR. REINFORCED USE OF CALL LIGHT.
[2016-11-29 05:47] LABS: CREATININE 4.56 mg/dL (0.70-1.30); POTASSIUM 4.9 mmol/L (3.5-5.1)
[2016-11-29 05:54] LABS: BASO % 0.3 % (0.0-1.0); EOS # 0.3 10*3/uL (0.0-0.4); HEMATOCRIT 31.5 % (42.0-52.0); HEMOGLOBIN 9.5 g/dl (14.0-18.0); LYMPH # 1.1 10*3/uL (1.3-4.4); LYMPH % 8.4 % (27.0-41.0); MEAN CELL VOLUME 86.1 fl (80.0-94.0); MEAN CORPUSCULAR HGB CONC 30.2 g/dl (33.0-37.0); MEAN PLATELET VOLUME 9.7 fl (9.6-12.3); MONO # 0.9 10*3/uL (0.1-1.0); MONO % 6.8 % (3.0-9.0); NEUT # 10.9 10*3/uL (2.3-7.9); PLATELET COUNT AUTOMATED 333 10*3/uL (130-400); RED BLOOD COUNT 3.66 10*6/uL (4.50-5.90); RED CELL DISTRI WIDTH 19.8 % (0-14.5); WHITE BLOOD COUNT 13.3 10*3/uL (4.8-10.8)
[2016-11-29 08:00] VITALS: BP 117/51
--- NOTE | 2016-11-29 09:08 | NUR ---
DILAUDID 1 MG GIVEN FOR C/O BACK PAIN,10/16.
[2016-11-29 12:00] VITALS: BP 158/60
[2016-11-29 17:20] VITALS: BP 129/59
--- NOTE | 2016-11-29 18:43 | NUR ---
DILAUDID 1 MG GIVEN FOR C/O BACK PAIN,11/16.
[2016-11-29 20:00] VITALS: BP 158/62
--- NOTE | 2016-11-29 23:00 | NUR ---
PRN PAIN MED GIVEN FOR PT REPORT 10/10 GENERALIZED CHEST, BACK AND SIDES.
[2016-11-30] VITALS: BP 150/56
--- NOTE | 2016-11-30 | NUR ---
PRN PAIN MED SOMEWHAT EFFECTIVE, PT RATES PAIN 6/10.
--- NOTE | 2016-11-30 03:40 | NUR ---
PRN PAIN MED GIVEN PER PT REQUEST FOR A 6/10 CHEST, BACK AND SIDES PAIN.
--- NOTE | 2016-11-30 04:40 | NUR ---
PRN PAIN MED EFFECTIVE, PT REPORTS PAIN 4/10 DECREASED FROM 6/10.
[2016-11-30 06:15] LABS: BASO % 0.4 % (0.0-1.0); EOS # 0.2 10*3/uL (0.0-0.4); HEMATOCRIT 28.8 % (42.0-52.0); HEMOGLOBIN 8.9 g/dl (14.0-18.0); LYMPH # 1.1 10*3/uL (1.3-4.4); MEAN CELL VOLUME 84.5 fl (80.0-94.0); MEAN CORPUSCULAR HGB 26.1 pg (27.0-31.0); MEAN CORPUSCULAR HGB CONC 30.9 g/dl (33.0-37.0); MEAN PLATELET VOLUME 9.3 fl (9.6-12.3); MONO # 0.9 10*3/uL (0.1-1.0); MONO % 8.3 % (3.0-9.0); NEUT # 8.5 10*3/uL (2.3-7.9); NEUT % 78.9 % (47.0-73.0); PLATELET COUNT AUTOMATED 291 10*3/uL (130-400); RED BLOOD COUNT 3.41 10*6/uL (4.50-5.90); RED CELL DISTRI WIDTH 19.6 % (0-14.5); WHITE BLOOD COUNT 10.7 10*3/uL (4.8-10.8)
[2016-11-30 06:45] LABS: CREATININE 4.64 mg/dL (0.70-1.30); POTASSIUM 4.1 mmol/L (3.5-5.1)
[2016-11-30 08:00] VITALS: BP 142/61
--- NOTE | 2016-11-30 08:36 | NUR ---
PT ADAMANTLY REFUSES TO PERMIT STAFF TO REMOVE A DRSNG HE HAS TO THE LEFT FOOT. STATING THAT HE GOES TO A WOUND [facility] IN [place] & HIS PHYSICIAN TOLD HIM TO "NEVER LET ANYBODY REMOVE THIS DRESSING" ATTMEPTED TO EXPLAIN THE POTENTIAL RISKS OF NOT PERMITTING [facility] STAFF VIEW THE FOOT. PT IS ADAMANT THAT THERE IS NO WOUND TO HIS FOOT BUT CONTINUES TO DENY STAFF TO VIEW HIS LEFT FOOT. WILL INFORM WOUND CARE NURSE LEIF GARCIA WELL SHIFT DIRECTOR.
--- NOTE | 2016-11-30 08:46 | NUR ---
PRN DILAUDID GIVEN PER PT. REQUEST FOR PAIN IN BACK AND SHOULDERS RATING A 10/10. WILL CONTINUE TO MONITOR.
[2016-11-30 09:22] LABS: INTERNATIONAL NORM RATIO 1.4 (2.0-3.5)
--- NOTE | 2016-11-30 10:14 | NUR ---
PRN NORCO GIVEN PER PT. REQUEST FOR BACK AND SHOULDER PAIN, PT. STATES PRN DILAUDID HAS HAD NO EFFECT. PT. RATING PAIN A 10/10, WILL CONTINUE TO MONITOR.
[2016-11-30 11:56] VITALS: BP 134/62
--- NOTE | 2016-11-30 13:35 | NUR ---
PRN DILAUDID GIVEN PER PT. REQUEST FOR PAIN IN BACK AND SHOULDERS, PT. RATES PAIN A 11/16, WILL CONTINUE TO MONITOR.
--- NOTE | 2016-11-30 13:50 | NUR ---
VAUGHN ARANA NOT EFFECTIVE PER PT. STATES HE DIDNT EVEN FELL IT. OFFERED WARM BLANKET TO SEE IF IT WOULD HELP WITH PAIN, PT. DENIED. WILL CONTINUE TO MONITOR.
--- NOTE | 2016-11-30 15:41 | NUR ---
PRN NORCO GIVEN PER PT. REQUEST FOR PAIN IN SHOULDERS, RATING PAIN AN 8/10. WILL CONTINUE TO MONITOR.
--- NOTE | 2016-11-30 15:47 | NUR ---
PT. OFFERED WARM BLANKETS TO TRY TO HELP WITH PAIN IN BACK AND SHOULDERS, WILL CONTINUE TO MONITOR EFFECTIVENESS.
[2016-11-30 16:00] VITALS: BP 150/63
[2016-11-30 20:00] VITALS: BP 155/57
--- NOTE | 2016-11-30 21:20 | NUR ---
PRN PAIN MED GIVEN FOR PT REPORT 10/10 NECK AND SHOULDER PAIN.
--- NOTE | 2016-11-30 22:20 | NUR ---
PRN PAIN MED MINIMALLY EFFECTIVE, PT RATES HIS PAIN A 7/10.
[2016-12-01] VITALS: BP 180/72
--- NOTE | 2016-12-01 05:30 | NUR ---
PRN PAIN MED GIVEN FOR A 10/10 SHOULDER PAIN.
[2016-12-01 06:17] LABS: BASO % 0.4 % (0.0-1.0); EOS # 0.2 10*3/uL (0.0-0.4); HEMATOCRIT 29.3 % (42.0-52.0); HEMOGLOBIN 9.2 g/dl (14.0-18.0); LYMPH % 10.1 % (27.0-41.0); MEAN CELL VOLUME 84.4 fl (80.0-94.0); MEAN CORPUSCULAR HGB 26.5 pg (27.0-31.0); MEAN CORPUSCULAR HGB CONC 31.4 g/dl (33.0-37.0); MEAN PLATELET VOLUME 9.4 fl (9.6-12.3); MONO # 0.7 10*3/uL (0.1-1.0); MONO % 7.3 % (3.0-9.0); NEUT # 8.1 10*3/uL (2.3-7.9); NEUT % 79.8 % (47.0-73.0); PLATELET COUNT AUTOMATED 320 10*3/uL (130-400); RED BLOOD COUNT 3.47 10*6/uL (4.50-5.90); RED CELL DISTRI WIDTH 19.3 % (0-14.5); WHITE BLOOD COUNT 10.2 10*3/uL (4.8-10.8)
--- NOTE | 2016-12-01 06:26 | NUR ---
PRN PAIN MED MINIMALLY EFFECTIVE, PT REPORTS PAIN 7/10.
[2016-12-01 06:34] LABS: CREATININE 4.82 mg/dL (0.70-1.30); POTASSIUM 4.2 mmol/L (3.5-5.1)
[2016-12-01 06:41] LABS: INTERNATIONAL NORM RATIO 1.5 (2.0-3.5)
[2016-12-01 08:00] VITALS: BP 159/58
[2016-12-01 12:00] VITALS: BP 149/58
[2016-12-01 16:00] VITALS: BP 160/62
[2016-12-01 20:00] VITALS: BP 182/67
[2016-12-01 22:30] VITALS: BP 168/58
[2016-12-02] VITALS: BP 147/59
[2016-12-02 04:00] VITALS: BP 153/59
--- NOTE | 2016-12-02 06:35 | NUR ---
PATIENT BLOOD GLUCOSE THIS AM IS 100. DANIEL AMARO HE SAID TO NOT GIVE IT.
[2016-12-02 06:45] LABS: ALBUMIN 2.8 gm/dl (3.1-4.5); CREATININE 5.24 mg/dL (0.70-1.30); INTERNATIONAL NORM RATIO 1.6 (2.0-3.5); PHOSPHOROUS 6.5 mg/dL (2.5-4.9); POTASSIUM 3.8 mmol/L (3.5-5.1)
[2016-12-02 08:00] VITALS: BP 138/56
[2016-12-02] MEDS ORDERED: METOLAZONE5 MG PO (10:30)
[2016-12-02] MEDS ORDERED: PERCOCET 7.5-31 EACH PO (10:30)
[2016-12-02] MEDS ORDERED: METHOCARBAMOL750 M1 PO (10:30)
[2016-12-02] MEDS ORDERED: COUMADIN7.5 M1 PO (10:30)
[2016-12-02 12:00] VITALS: BP 148/59
--- NOTE | 2016-12-02 12:12 | NUR ---
Patient asked to speak to discharge planning. In to see patient, he asked if we would be setting his home health back up when he is discharged. [facility] who [facility] currently active with and they stated they will resume his care with a resume order when patient is discharged. Will need resume home health order prior to discharge.
--- NOTE | 2016-12-02 15:09 | NUR ---
recieved resume home health order, contacted [facility], faxed clinicals to resume services.
--- NOTE | 2016-12-02 15:20 | NUR ---
Discharge instructions reviewed with patient/family. Patient receptive and verbalizes understanding. Follow-up care arranged. Written instructions given to patient/family. RICARDO MATHIAS
== END 2016-12-02 15:20 | disposition home health service (06) | DRG 683 ==
LOC: ED 19:35 → EDHOLD 21:23 → 4E 21:23 → EDHOLD 22:18 → 4E 11-28 08:10
PROVIDERS: Family Medicine; Hospitalist; Internal Medicine; Student in an Organized Health Care Education/Training Program; ADMIT Internal Medicine
DX: N17.0 Acute kidney failure with tubular necrosis (principal); I50.32 Chronic diastolic (congestive) heart failure; I13.2 Hypertensive heart and chronic kidney disease with heart failure and with stage 5 chronic kidney disease, or end stage renal disease; E11.22 Type 2 diabetes mellitus with diabetic chronic kidney disease; E11.42 Type 2 diabetes mellitus with diabetic polyneuropathy; Z68.41 Body mass index [BMI] 40.0-44.9, adult; E55.9 Vitamin D deficiency, unspecified; N18.5 Chronic kidney disease, stage 5; D63.1 Anemia in chronic kidney disease; E53.8 Deficiency of other specified B group vitamins; E66.01 Morbid (severe) obesity due to excess calories; F41.9 Anxiety disorder, unspecified; K21.9 Gastro-esophageal reflux disease without esophagitis; I48.0 Paroxysmal atrial fibrillation; E78.5 Hyperlipidemia, unspecified; M1A.9XX0 Chronic gout, unspecified, without tophus (tophi); D72.829 Elevated white blood cell count, unspecified; M79.603 Pain in arm, unspecified; Z79.01 Long term (current) use of anticoagulants; Z72.0 Tobacco use; Z79.899 Other long term (current) drug therapy; Z86.718 Personal history of other venous thrombosis and embolism; Z87.81 Personal history of (healed) traumatic fracture; I25.2 Old myocardial infarction; Z89.511 Acquired absence of right leg below knee; Z89.429 Acquired absence of other toe(s), unspecified side; Z82.49 Family history of ischemic heart disease and other diseases of the circulatory system; Z83.3 Family history of diabetes mellitus; Z80.9 Family history of malignant neoplasm, unspecified; Z79.4 Long term (current) use of insulin; R07.89 Other chest pain

== ENCOUNTER 2016-12-27 02:38 | Inpatient (IN) | payer MEDICARE ==
[2016-12-27] VITALS (13 sets, daily range): BP systolic 105–209; BP diastolic 60–88
[~2016-12-27] VITALS: Ht 193 cm; Wt 150.3 kg
--- NOTE | ~2016-12-27 | CON ---
[place], [place] REPORT OF CONSULTATION [id number] UNIT #: [id number] ROOM: 424 DOCTOR: DOROTHY RAMOS MD BIRTHDATE: [birth year] DOS: 12/27/2016 REASON FOR CONSULTATION: Chest pain. HISTORY OF PRESENT ILLNESS: The patient is a 61-year-old man who is known to have coronary artery disease documented by noninvasive imaging. A myocardial perfusion study done on 10/12/2015 showed a small-sized moderate intensity reversible defect in the inferior wall and an ejection fraction of 66%. It was felt that it did indicate coronary artery disease, but that his prognosis was good, catheterization was considered, but not done because of chronic renal insufficiency and the probability that he would develop contrast-induced nephropathy. Since then, his renal functions have continued to deteriorate, but he is not yet on dialysis. He comes in to the hospital on this occasion with a new chest pain. He states that while at rest, he developed a pain that started in his neck and radiated down into his chest and then wrapped around his back. It is still present. It is worsened by twisting, turning or moving his head around. The deep breath does not seem to affect it very much. There is nothing much that makes it go away aside from resting. It is not associated with diaphoresis, dyspnea, orthopnea or PND. His electrocardiogram is abnormal demonstrating an old anterior and an old inferior infarction with nonspecific ST changes. However, he has no acute changes. Serial troponin levels have been unremarkable. PAST MEDICAL HISTORY: Includes the followin. Type 2 diabetes mellitus, present for about 10 years and poorly controlled. 2. Obesity. 3. History of cigarette abuse. 4. Severe peripheral neuropathy. 5. Chronic renal insufficiency, near end stage. Current BUN and creatinine are 80 and 4.06 respectively. This is up from measurements obtained earlier in the year, where his BUN was about 60 and his creatinine was in the mid 3s. He has, however, had creatinines over 6 in the past as well. 6. 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 Details are not available. 7. History of bilateral toe amputations. 8. Charcot joint, right ankle with chronic fracture. 9. History of cardiac catheterization around 2013 at the [facility] in [place]. The patient was told at that time that no revascularization was necessary that his disease was mild. 10. Status post right below the knee amputation. 11. History of paroxysmal atrial fibrillation. MEDICATIONS: Prior to admission included amlodipine 10 mg daily, Bumex 2 mg b.i.d., vitamin D3 1000 units daily, clopidogrel 75 mg daily, cyanocobalamin 500 mcg daily, gabapentin 300 mg b.i.d., hydralazine 50 mg t.i.d., isosorbide mononitrate 60 mg daily, methocarbamol 750 mg q.i.d., metolazone 5 mg daily, metoprolol 100 mg b.i.d., oxycodone q. 6 hours, pantoprazole 40 mg daily, polyethylene glycol 17 grams daily, pravastatin 40 mg at bedtime, warfarin 7.5 mg daily to maintain an INR between 2 and 3, erythropoietin alpha 4000 units [place], [place] REPORT OF CONSULTATION NAME: YOLA GARDUNO UNIT #: [id number] ROOM: [facility] DOCTOR: DOROTHY RAMOS MD BIRTHDATE: [birth year] subcutaneously every Thursday, insulin 70/30 50 units at a.m. at bedtime and Humulin regular insulin by sliding scale. ALLERGIES: The patient has no known drug allergies. FAMILY HISTORY: Negative for early coronary artery disease. REVIEW OF SYSTEMS: The patient denies diplopia or loss of vision. He denies focal weakness. He denies lightheadedness or syncope. He does get tired and dyspneic easily. He does break out into a sweat easily. He denies nausea or vomiting. He denies fevers or chills. He has not had any change in bowel or bladder habits and denies bleeding in his blood and urine. He denies hemoptysis or hematemesis. He denies heat or cold intolerance and denies polyuria or polydipsia. He has not had any swelling in his left ankle. The remainder of the review of systems is negative except as noted above. SOCIAL HISTORY: The patient was a smoker, but quit a year ago. He denies any alcohol consumption. PHYSICAL EXAMINATION: GENERAL: The patient is an overweight -Thai man who is awake, alert and oriented. VITAL SIGNS: Pulse is 79 and regular, blood pressure is 156/69. He is afebrile. He weighs 150.3 kg and has a body mass index of 40.3. HEENT: Normocephalic, atraumatic. Extraocular muscles are intact. Sclerae are clear. Pupils are equal, round and reactive to light. The oral mucosa is moist. Tongue is midline. NECK: Supple. He has no jugular distention. Carotids are full. I heard no bruits. He had no neck or supraclavicular masses and no thyromegaly. LUNGS: Respirations are unlabored. His chest is clear to auscultation and percussion. He has no presacral edema. He does have chest wall tenderness involving most of the right side of his chest and this does reproduce his pain. He has no presacral edema. CARDIOVASCULAR: His heart has a regular rhythm. He has a fourth heart sound, but no third heart sound or significant murmur. The PMI is not displaced. There is no precordial heave, lift or thrill. ABDOMEN: Obese, but otherwise benign, without masses, organomegaly or bruits. EXTREMITIES: Showed no edema on the left. He is status post right BKA. IMPRESSIONS: 1. Atypical chest pain. The patient does not have any acute change in his cardiogram nor does he have any elevation in troponin. In addition, his pains are reproducible on palpation. I think that these are musculoskeletal in origin. 2. Diabetes mellitus, on insulin. 3. Morbid obesity. 4. Remote cigarette abuse. 5. Diabetes complicated by peripheral neuropathy, renal insufficiency and Charcot joints. [place], [place] REPORT OF CONSULTATION [facility]: [facility] [id number] UNIT #: [id number] ROOM: 424 DOCTOR: DOROTHY RAMOS MD BIRTHDATE: [birth year] PLAN: We will continue to observe him and monitor his cardiogram and blood test. It has been over a year since his last stress test, so we may consider repeating it at this time; however, I think that it is much more likely that his current symptoms are of musculoskeletal in origin than cardiac origin. Once again, I would have a very high threshold for taking him to the catheterization laboratory since he almost certainly would have contrast-induced nephropathy and may even end up on dialysis at that point. I thank the hospitalist physicians for asking our advice regarding his care. DOROTHY RAMOS MD CM:CONSTR:REPORT OF CONSULTATION 11 12/27/162132 interface
--- NOTE | ~2016-12-27 | PR ---
[place], [place] PROGRESS NOTE NAME: YOLA GARDUNO [facility] #: [id number] UNIT #: [id number] ROOM: 424 DOCTOR: DOROTHY RAMOS MD BIRTHDATE: [birth year] DOS: 12/30/2016 SUBJECTIVE: The patient was seen at his bedside today, 12/30/2016, for followup of his atypical chest pain. He is a 61-year-old man with a history of coronary artery disease and multiple coronary risk factors. He continues to complain of soreness of the muscles in his back. He denies anything that feels like his previous angina. PHYSICAL EXAMINATION: VITAL SIGNS: Today, his pulse is 70 and regular, blood pressure was 159/66, but subsequently went up to 182/70. He is afebrile. He weighs 150.3 kilograms with a body mass index of 40.3. NECK: Supple. He has no jugular distention. Carotids are full. LUNGS: Respirations are unlabored. His chest is clear. HEART: Has a regular rhythm with an S4 gallop. ABDOMEN: Benign. EXTREMITIES: His left ankle shows no swelling. He remains stable from a cardiac standpoint. One lose end is his blood pressure. I have maxed out most of his cardiac medications. Further management of his blood pressure probably will need to be guided by his donor recruiter. IMPRESSION: 1. Atypical chest pain, most likely musculoskeletal in origin. 2. Essential hypertension, exaggerated by his renal disease and not currently well controlled. 3. Type 2 diabetes mellitus, on insulin. 4. Morbid obesity. 5. Remote cigarette abuse. 6. History of coronary artery disease. PLAN: From a cardiac standpoint, he is stable for discharge. He should have close followup with his donor recruiter to consider other management strategies for his blood pressure. I thank the hospitalist physicians for asking our advice regarding his care. [place], [place] PROGRESS NOTE NAME: LAUREENYOLA Galdino UNIT #: [id number] ROOM: 424 DOCTOR: DOROTHY RAMOS MD BIRTHDATE: [birth year] DOROTHY RAMOS MD CM:PNTRANS [id number] DOROTHY RAMOS MD 12/30/16 1017 interface
--- NOTE | ~2016-12-27 | PR ---
[place], [place] PROGRESS NOTE NAME: YOLA GARDUNO UNIT #: [id number] ROOM: 424 DOCTOR: DOROTHY RAMOS MD BIRTHDATE: [birth year] DOS: 12/28/2016 SUBJECTIVE: The patient was seen today at his bedside, 12/28/2016. He tells me he is feeling better, but does note that when he turns certain ways, he can feel the muscles in his back and side tightened and recognizes that as the pain that he has been having recently. He denies any substernal pain, diaphoresis or dyspnea. PHYSICAL EXAMINATION: VITAL SIGNS: On exam today, his pulse is 66 and regular, blood pressure is 151/53. He is afebrile. He weighs 150.3 kilograms with a body mass index of 40.3. NECK: Supple. He has no jugular distention. Carotids are full. LUNGS: Respirations are unlabored. His chest is clear. HEART: Has a regular rhythm with an S4 gallop. ABDOMEN: Benign. EXTREMITIES: His left ankle shows minimal edema. He is status post right BKA. Clinically, he seems to be stable but his blood pressure remains poorly controlled. IMPRESSION: 1. Atypical chest pain, most likely musculoskeletal in origin. 2. Essential hypertension, not yet adequately controlled. 3. Diabetes mellitus, on insulin. 4. Morbid obesity. 5. Remote cigarette abuse. PLAN: I will increase his hydralazine to try to better control his blood pressure. I have no further plans for advanced cardiac evaluation at this point. We will continue to follow him clinically with his other doctors. I thank the hospitalist physicians for asking our advice regarding his care. [place], [place] PROGRESS NOTE NAME: YOLA GARDUNO UNIT #: [id number] ROOM: 424 DOCTOR: DOROTHY RAMOS MD BIRTHDATE: [birth year] DOROTHY RAMOS MD CM:PNTRANS [id number] [phone] DOROTHY RAMOS MD 12/28/162042 interface
--- NOTE | ~2016-12-27 | PR ---
[place], [place] PROGRESS NOTE NAME: YOLA GARDUNO UNIT #: [id number] ROOM: 424 DOCTOR: DOROTHY RAMOS MD BIRTHDATE: [birth year] DOS: 12/29/2016 SUBJECTIVE: The patient was seen at his bedside today for followup of atypical chest pain in a patient with a history of coronary artery disease and multiple cardiac risk factors. He tells me he feels about the same. He still has pain in his right neck that radiates into his back and is worsened by twisting or turning as well as deep breath. This is not similar to his previous angina. PHYSICAL EXAMINATION: VITAL SIGNS: His pulse is 60 and regular, blood pressure is 160/76. He is afebrile. NECK: Supple. He has no jugular distention. Carotids are full. LUNGS: Respirations are unlabored. His chest is clear to auscultation and percussion. He has no presacral edema. HEART: Has a regular rhythm. He has a fourth heart sound, but no third heart sound. ABDOMEN: Soft and normally active without masses, organomegaly or bruits. EXTREMITIES: Showed no edema. He does seem to be stable from a cardiac standpoint and I believe that his pains are musculoskeletal. IMPRESSION: 1. Atypical chest pain, most likely musculoskeletal in origin. 2. Essential hypertension, still not adequately controlled. 3. Type 2 diabetes mellitus, on insulin. 4. Morbid obesity. 5. Remote cigarette abuse. PLAN: We will continue to monitor him in the hospital with his other physicians. No other advanced cardiac diagnostics are pending at this time. I thank the hospitalist physicians for asking our advice regarding his care. [place], [place] PROGRESS NOTE NAME: YOLA GARDUNO UNIT #: [id number] ROOM: 424 DOCTOR: DOROTHY RAMOS MD BIRTHDATE: [birth year] DOROTHY RAMOS MD CM:PNTRANS [id number] DOROTHY RAMOS MD 12/29/16 1546 interface
[~2016-12-27 02:38] MED LIST changes: +METHOCARBAMOL750 M1 PO; +PERCOCET 7.5-31 EACH PO
[2016-12-27 02:58] LABS: BASO % 0.2 % (0.0-1.0); EOS # 0.1 10*3/uL (0.0-0.4); HEMATOCRIT 27.6 % (42.0-52.0); HEMOGLOBIN 8.8 g/dl (14.0-18.0); LYMPH # 1.3 10*3/uL (1.3-4.4); LYMPH % 13.3 % (27.0-41.0); MEAN CELL VOLUME 82.4 fl (80.0-94.0); MEAN CORPUSCULAR HGB 26.3 pg (27.0-31.0); MEAN CORPUSCULAR HGB CONC 31.9 g/dl (33.0-37.0); MEAN PLATELET VOLUME 8.9 fl (9.6-12.3); MONO # 0.6 10*3/uL (0.1-1.0); NEUT # 7.9 10*3/uL (2.3-7.9); NEUT % 79.2 % (47.0-73.0); PLATELET COUNT AUTOMATED 231 10*3/uL (130-400); RED BLOOD COUNT 3.35 10*6/uL (4.50-5.90); RED CELL DISTRI WIDTH 18.1 % (0-14.5)
[2016-12-27 03:12] LABS: ACT PARTIAL THROMBO TIME 57.9 SECONDS (20.8-31.5)
[2016-12-27 03:17] LABS: ALBUMIN 2.8 gm/dl (3.1-4.5); CREATININE 4.06 mg/dL (0.70-1.30); POTASSIUM 3.8 mmol/L (3.5-5.1); TOTAL PROTEIN 7.7 gm/dL (6.4-8.2)
[2016-12-27 03:18] LABS: TROPONIN I 0.028 ng/ml (<0.045)
--- NOTE | 2016-12-27 03:20 | NUR ---
PATIENT REPORTS NO CHANGE IN HIS PAIN AFTER BEING GIVEN NITRO GLYCERIN TABLET. PATIENT'S BLOOD PRESSURE DID SHOW IMPROVEMENT. BP NOW 155/72. DR. JIM AWARE.
--- NOTE | 2016-12-27 04:33 | NUR ---
SECOND SUBLINGUAL NITRO GIVEN FOR CHEST DISCOMFORT
--- NOTE | 2016-12-27 06:15 | NUR ---
A 61, admitted to , under the services of LORETA Tay DO with a diagnosis of CHEST PAIN R/O CT. Chief complaint is CHEST PAIN. Patient arrived via bed from ER. Monitor applied. Initial assessment completed. Vital signs taken and recorded. LORETA TAY DO notified of admission to the unit. Orders received. See assessment for past medical history, medications and allergies. Patient and/or family oriented to unit. [facility] visitation policy reviewed. Clothing/patient valuable form completed. NATHALIE OWEN
[2016-12-27 07:00] LABS: THYROID STIM HORMONE (HS) 1.22 uIU/ml (0.358-4.75)
--- NOTE | 2016-12-27 07:17 | NUR ---
NOTIFIED OF CONSULT, WILL SEE PT TODAY NNO AT THIS TIME
--- NOTE | 2016-12-27 07:19 | NUR ---
NOTIFIED OF ELEVATED BP, PT AYSMPTOMATIC, RESTING IN BED WITH NO COMPLAINTS. ALSO NOFITIED OF PRN HYDRALAZINE WITH NO PARAMETERS.
--- NOTE | 2016-12-27 07:30 | NUR ---
IV HYDRALAZINE GIVEN FOR ELEVATED BP.
--- NOTE | 2016-12-27 08:55 | NUR ---
IV HYDRALAZINE EFF AT THIS TIME. WILL CONT TO MONITOR.
[2016-12-27] MEDS ORDERED: NEURONTIN300 MG PO (09:39)
[2016-12-27] MEDS ORDERED: HYDRALAZINE HYD50 MG PO (09:39)
[2016-12-27] MEDS ORDERED: LOPRESSOR100 M1 PO (09:40)
[2016-12-27] MEDS ORDERED: METOLAZONE5 MG PO (09:42)
[2016-12-27] MEDS ORDERED: B12,B-12,B 12500 MC1 PO (09:43)
--- NOTE | 2016-12-27 09:45 | NUR ---
SPOKE TO [facility] AND MED REC WAS UPDATED. SPOKE TO DR SIMPSON AND NOTIFIED HIM THAT THE PHARMACY REPORTED MEDS ARE COMPLETELY DIFFERENT FROM WHAT THE LAST DISCHARGE SUMMARY LISTED. HE STATED TO JUST REVIEW THE ONES THAT THE PHARMACY TOLD ME.
--- NOTE | 2016-12-27 13:05 | NUR ---
PT REQUESTING SOMETHING STRONGER FOR PAIN. DR SIMPSON MADE AWARE.
--- NOTE | 2016-12-27 13:53 | NUR ---
C/O PAIN OF 10/10 TO BACK, NECK AND CHEST. PERCOCET GIVEN AT THIS TIME. WILL CONT TO MONITOR. CALL LIGHT IN REACH.
--- NOTE | 2016-12-27 14:53 | NUR ---
PERCOCET EFF AT THIS TIME. WILL CONT TO MONITOR. CALL LIGHT IN REACH.
--- NOTE | 2016-12-27 17:12 | NUR ---
C/O PAIN OF 10/10 TO BACK, NECK AND CHEST. NORCO GIVEN ORDERED.
--- NOTE | 2016-12-27 18:12 | NUR ---
PT STATES EDUIN DOESN'T REALLY WORK FOR PAIN AND RATES HIS PAIN OF 7/10 AFTER HAVING IT. WILL CONT TO MONITOR.
--- NOTE | 2016-12-27 19:54 | NUR ---
PATIENT RESTING IN BED WATCHING TV. REQUESTING PAIN MEDICATION FOR NECK AND BACK.
--- NOTE | 2016-12-27 19:57 | NUR ---
MEDICATED WITH PRN PERCOCET FOR PAIN RATED 10/10 ON A 0/10 PAIN SCALE
--- NOTE | 2016-12-27 22:49 | NUR ---
24 HR chart check completed.
[2016-12-28] VITALS: BP 150/62
--- NOTE | 2016-12-28 02:06 | NUR ---
PATIENT MEDICATED WITH PRN PERCOCET FOR PAIN RATED 10/10 ON A 0/10 PAIN SCALE. WILL MONITOR
--- NOTE | 2016-12-28 03:00 | NUR ---
PATIENT RESTING WITH EYES CLOSED. NEDICATION SEEMS EFFECTIVE
--- NOTE | 2016-12-28 05:37 | NUR ---
PATIENT REFUSING AM LABS
[2016-12-28 06:42] LABS: BASO % 0.3 % (0.0-1.0); EOS # 0.3 10*3/uL (0.0-0.4); EOS % 2.8 % (1.0-4.0); HEMATOCRIT 29.2 % (42.0-52.0); HEMOGLOBIN 9.1 g/dl (14.0-18.0); LYMPH # 1.5 10*3/uL (1.3-4.4); LYMPH % 15.8 % (27.0-41.0); MEAN CELL VOLUME 82.7 fl (80.0-94.0); MEAN CORPUSCULAR HGB 25.8 pg (27.0-31.0); MEAN CORPUSCULAR HGB CONC 31.2 g/dl (33.0-37.0); MEAN PLATELET VOLUME 9.2 fl (9.6-12.3); MONO # 0.6 10*3/uL (0.1-1.0); MONO % 6.7 % (3.0-9.0); NEUT # 7.1 10*3/uL (2.3-7.9); NEUT % 73.9 % (47.0-73.0); PLATELET COUNT AUTOMATED 252 10*3/uL (130-400); RED BLOOD COUNT 3.53 10*6/uL (4.50-5.90); RED CELL DISTRI WIDTH 18.4 % (0-14.5); WHITE BLOOD COUNT 9.6 10*3/uL (4.8-10.8)
[2016-12-28 06:49] LABS: INTERNATIONAL NORM RATIO 2.7 (2.0-3.5)
[2016-12-28 07:03] LABS: CREATININE 3.75 mg/dL (0.70-1.30); PHOSPHOROUS 5.4 mg/dL (2.5-4.9); POTASSIUM 3.5 mmol/L (3.5-5.1)
[2016-12-28 08:25] VITALS: BP 166/76
[2016-12-28 12:53] VITALS: BP 158/68
[2016-12-28 16:00] VITALS: BP 151/53
[2016-12-28 20:00] VITALS: BP 143/57
--- NOTE | 2016-12-28 23:30 | NUR ---
Pt requested and was medicated with Percocet for c/o generalized pain. Call light in reach. will monitor
[2016-12-29] VITALS: BP 167/78
--- NOTE | 2016-12-29 01:00 | NUR ---
Medication effective. pt sleeping no distress noted. Call light in reach.
[2016-12-29 06:09] LABS: CREATININE 4.04 mg/dL (0.70-1.30); POTASSIUM 3.3 mmol/L (3.5-5.1)
[2016-12-29 06:18] LABS: INTERNATIONAL NORM RATIO 2.1 (2.0-3.5)
[2016-12-29 08:00] VITALS: BP 160/76
[2016-12-29 12:00] VITALS: BP 185/67
--- NOTE | 2016-12-29 13:03 | NUR ---
BP ELEVATED, APRESOLINE DUE. WILL GIVE NOW.
--- NOTE | 2016-12-29 13:07 | NUR ---
C/O BACK PAIN OF 10/10. WILL CONT TO MONITOR. CALL LIGHT IN REACH.
--- NOTE | 2016-12-29 14:01 | NUR ---
PERCOCET EFF FOR PAIN. WILL CONT TO MONITOR. CALL LIGHT IN REACH.
[2016-12-29 16:00] VITALS: BP 157/51
[2016-12-29 20:00] VITALS: BP 143/48
--- NOTE | 2016-12-29 20:20 | NUR ---
MEDICATED WITH PERCOCET PER PRN ORDER FOR C/O PAIN.
[2016-12-30] VITALS: BP 159/66
[2016-12-30 07:02] LABS: BASO % 0.2 % (0.0-1.0); EOS # 0.3 10*3/uL (0.0-0.4); EOS % 2.9 % (1.0-4.0); HEMATOCRIT 28.6 % (42.0-52.0); LYMPH # 1.5 10*3/uL (1.3-4.4); LYMPH % 16.3 % (27.0-41.0); MEAN CELL VOLUME 84.4 fl (80.0-94.0); MEAN CORPUSCULAR HGB 26.5 pg (27.0-31.0); MEAN CORPUSCULAR HGB CONC 31.5 g/dl (33.0-37.0); MEAN PLATELET VOLUME 8.9 fl (9.6-12.3); MONO # 0.6 10*3/uL (0.1-1.0); NEUT # 6.6 10*3/uL (2.3-7.9); NEUT % 73.3 % (47.0-73.0); PLATELET COUNT AUTOMATED 269 10*3/uL (130-400); RED BLOOD COUNT 3.39 10*6/uL (4.50-5.90); RED CELL DISTRI WIDTH 18.3 % (0-14.5)
[2016-12-30 07:12] LABS: INTERNATIONAL NORM RATIO 1.7 (2.0-3.5)
[2016-12-30 07:15] LABS: CREATININE 4.36 mg/dL (0.70-1.30); POTASSIUM 3.3 mmol/L (3.5-5.1)
[2016-12-30 08:00] VITALS: BP 182/70
--- NOTE | 2016-12-30 08:30 | NUR ---
Patient resting quietly with no c/o discomfort. Respirations easy and regular. Vital signs stable. No overt distress. YAMILET BELTRE R
--- NOTE | 2016-12-30 09:00 | NUR ---
Blankbook Stitching Machine Operator in to talk to patient. Patient states lives at home with and family. There are no steps in the home. Physician: cale chaudhari [facility]acy[facility] health services: [facility] Patient's level of ADLs: MINIMAL ASSIST Patient has working utilities: all working DME: walker, wheelchair Follow-up physician's appointment after d/c: will be made by hospitalist nurse director upon discharge Does patient want to access PORTAL?: no Discharge plan discussed with patient, patient will be going back home and denies any home needs. PAYAL AGUIRRE
--- NOTE | 2016-12-30 12:06 | NUR ---
PT C/O CHEST PAIN ACROSS CHEST. MEDICATED WITH PERCOCET PER REQUEST. DR ACEVES NOTIFIED. EKG ORDERED.
--- NOTE | 2016-12-30 13:10 | NUR ---
MEDICATION EFFECTIVE. DENIES CHEST PAIN AT PRESENT. WILL MONITOR
[2016-12-30] MEDS ORDERED: HYDRALAZINE HYD50 MG PO (13:18)
[2016-12-30] MEDS ORDERED: COUMADIN6 M2 PO (13:18)
--- NOTE | 2016-12-30 14:00 | NUR ---
Discharge instructions reviewed with patient/family. Patient receptive and verbalizes understanding. Follow-up care arranged. Written instructions given to patient/family. YAMILET BELTRE
--- NOTE | 2016-12-30 14:34 | NUR ---
DR ACEVES CALLED RE: HOSPICE CONSULT ORDERS. ORDERS RECEIVED TO DC ORDER.
== END 2016-12-30 14:00 | disposition home health service (06) | DRG 205 ==
LOC: ED 02:38 → EDHOLD 05:26 → 4E 05:26
PROVIDERS: Emergency Medicine Emergency Medical Services; Internal Medicine; Student in an Organized Health Care Education/Training Program; ADMIT Internal Medicine
DX: M94.0 Chondrocostal junction syndrome [Tietze] (principal); N17.0 Acute kidney failure with tubular necrosis; I50.30 Unspecified diastolic (congestive) heart failure; I13.0 Hypertensive heart and chronic kidney disease with heart failure and stage 1 through stage 4 chronic kidney disease, or unspecified chronic kidney disease; E44.0 Moderate protein-calorie malnutrition; N18.4 Chronic kidney disease, stage 4 (severe); I16.1 Hypertensive emergency; Z68.41 Body mass index [BMI] 40.0-44.9, adult; R07.89 Other chest pain; I25.10 Atherosclerotic heart disease of native coronary artery without angina pectoris; E11.22 Type 2 diabetes mellitus with diabetic chronic kidney disease; E11.40 Type 2 diabetes mellitus with diabetic neuropathy, unspecified; M10.9 Gout, unspecified; D63.1 Anemia in chronic kidney disease; E78.5 Hyperlipidemia, unspecified; R79.1 Abnormal coagulation profile; E11.65 Type 2 diabetes mellitus with hyperglycemia; F41.9 Anxiety disorder, unspecified; M79.1 Myalgia; E66.01 Morbid (severe) obesity due to excess calories; K21.9 Gastro-esophageal reflux disease without esophagitis; Z96.653 Presence of artificial knee joint, bilateral; F17.210 Nicotine dependence, cigarettes, uncomplicated; Z82.49 Family history of ischemic heart disease and other diseases of the circulatory system; Z86.718 Personal history of other venous thrombosis and embolism; I25.2 Old myocardial infarction; Z89.429 Acquired absence of other toe(s), unspecified side; Z83.3 Family history of diabetes mellitus; Z51.81 Encounter for therapeutic drug level monitoring; Z79.01 Long term (current) use of anticoagulants; Z79.4 Long term (current) use of insulin; Z79.1 Long term (current) use of non-steroidal anti-inflammatories (NSAID); Z79.899 Other long term (current) drug therapy

== ENCOUNTER 2017-02-18 20:15 | Inpatient (IN) | payer MEDICARE ==
[~2017-02-18] VITALS: Ht 193 cm; Wt 150.1 kg
--- NOTE | ~2017-02-18 | DS ---
[place], [place] DISCHARGE SUMMARY NAME: YOLA GARDUNO [facility] #: [id number] UNIT #: [id number] ROOM: 509 DOCTOR: KHOA GILLESPIE MD BIRTHDATE: [birth year] DOS: 02/20/2017 DISCHARGE DIAGNOSES: 1. The patient with diabetic gastroparesis with nausea. 2. Chronic kidney disease stage 4. 3. Morbid obesity. 4. Uncontrolled type 2 diabetes mellitus. 5. Benign essential hypertension. 6. Morbid obesity. 7. Paroxysmal atrial fibrillation, the patient anticoagulated with Coumadin. 8. Benign essential hypertension. 9. Right below knee amputation. 10. Moderate protein-calorie malnutrition. 11. Chronic gouty arthritis. 12. Mixed hyperlipidemia. 13. Diabetic neuropathy. 14. Gastroesophageal reflux disease and esophagitis. 15. Generalized anxiety disorder. 16. Diastolic type congestive heart failure. 17. History of nicotine smoke dependence. HOSPITAL COURSE: The patient presented to the emergency department with epigastric pains and nausea apparently from diabetic gastroparesis and mild viral infection. The patient's symptoms resolved after treatment with Zofran and he is asymptomatic now and can be discharged to home and I wrote some Zofran for him to take at home. Suspected chest pains, which were recurrent and patient is very high risk for having coronary artery disease and CA. The patient was checked with serial cardiac enzymes and the troponin I levels were negative. The patient also seen by cardiology and no further workup was recommended. Uncontrolled type 2 diabetes mellitus and poor compliance with diet. Blood sugars were monitored and treated. Moderate protein calorie malnutrition. The patient worked with dietary. Diastolic type congestive heart failure, compensated. All treatment continued. Benign essential hypertension with controlled blood pressures with treatment. LABORATORY DATA: Negative cardiac enzymes, no acute abnormality on CT of the abdomen and pelvis. No leukocytosis. Hemoglobin 9.5. DISCHARGE MANAGEMENT: 70/30 insulin 50 units subq b.i.d., ondansetron 8 mg every 8 hours sublingual as needed p.r.n. for nausea, Coumadin 6 mg daily. The patient was given extra dose at the hospital because his INR was subtherapeutic. Metoprolol 100 mg b.i.d., Imdur 60 mg a day, hydralazine 100 mg t.i.d., gabapentin 300 mg b.i.d., Bumex 2 mg b.i.d., amlodipine 10 mg daily, Xanax p.r.n., zolpidem p.r.n. Follow up with his PCP in less than a week. [place], [place] DISCHARGE SUMMARY NAME: YOLA GARDUNO UNIT #: [id number] ROOM: [facility] DOCTOR: KHOA GILLESPIE MD BIRTHDATE: [birth year] KHOA GILLESPIE MD CM:DISCHARG [id number] KHOA GILLESPIE MD 02/21/17 0046 interface
--- NOTE | ~2017-02-18 | WRIGHTHP ---
[place], [place] PATIENT HISTORY AND PHYSICAL EXAM NAME: YOLA GARDUNO [facility] #: [id number] UNIT #: [id number] ROOM: 509 DOCTOR: KHOA GILLESPIE MD BIRTHDATE: [birth year] DOS: 02/19/2017 HISTORY OF PRESENT ILLNESS: The patient is a 61-year-old gentleman with history of: 1. Morbid obesity. 2. Benign essential hypertension. 3. Right below knee amputation. 4. Moderate protein calorie malnutrition. 5. Gouty arthritis. 6. Mixed hyperlipidemia. 7. Diabetic neuropathy. 8. Paroxysmal atrial fibrillation. 9. GERD and esophagitis. 10. Generalized anxiety disorder. 11. Chronic kidney disease stage 4 and diabetic nephropathy. 12. Type 2 diabetes mellitus. 13. Diastolic type CHF. 14. History of nicotine smoke dependence. The patient presented to the Emergency Department and was reported to have recurrent chest pains, but after admission, the patient says he is actually having upper abdominal pains. No chest pain. There is no increasing shortness of breath, but he is feeling nauseous starting today, but no vomiting, no diarrhea, no fever or chills, no increasing shortness of breath. REVIEW OF SYSTEMS: LUNGS: No increasing shortness of breath or wheezing. CHEST: No complaints of chest pains. GASTROINTESTINAL: Complaining of nausea today, but no vomiting. ALLERGIES: No known drug allergies. FAMILY HISTORY: Noncontributory. HOME MEDICATIONS: The patient takes insulin, Coumadin, Imdur, hydralazine, gabapentin, Bumex, amlodipine, zolpidem, Xanax. PHYSICAL EXAMINATION: GENERAL: Alert, oriented x 3, morbidly obese. HEENT AND NECK: Extraocular movements are intact. Sclerae are anicteric. Oral mucosa is moist and clean. No obvious facial weakness. Neck is supple without any lymphadenopathy. No thyromegaly. No JVD. No carotid arterial bruits. LUNGS: Clear to auscultation. No wheezing. No rhonchi. CARDIOVASCULAR SYSTEM: Heart rate is regular in rate and rhythm. S1 and S2 normally audible. No significant murmur or any other abnormal cardiac sounds. ABDOMEN: Soft, nontender. No obvious organomegaly. Bowel sounds are present. No obvious herniation. EXTREMITIES: Right below the knee amputation and chronic skin changes and stasis dermatitis in the left lower extremity. CENTRAL NERVOUS SYSTEM: Alert and oriented x 3. Cranial nerves II-XII are [place] [facility] [place], [place] PATIENT HISTORY AND PHYSICAL EXAM NAME: YOLA GARDUNO UNIT #: [id number] ROOM: 509 DOCTOR: KHOA GILLESPIE MD BIRTHDATE: [birth year] intact. Speech is normal. The patient is able to move all extremities. Normal muscle strength. Deep tendon reflexes are equal on both sides. Plantars were downgoing. LABORATORY DATA: Two sets of cardiac enzymes have been negative. CT scan of the abdomen without any acute abnormality. BUN and creatinine elevated to 34 and 3.6. Hemoglobin 9.5. IMPRESSION AND PLAN: 1. The patient with chronic kidney disease stage IV. I will follow his kidney function. 2. Upper abdominal pains with nausea, probable gastroenteritis versus diabetic gastroparesis, to be treated with Zofran. 3. Uncontrolled type 2 diabetes mellitus. I will check HbA1c, monitor blood sugars and treat accordingly and continue his home dose of insulin. 4. Benign essential hypertension, treated with hydralazine and amlodipine and metoprolol. Blood pressure to be monitored and controlled. 5. The patient has history of paroxysmal atrial fibrillation, anticoagulated with Coumadin. INR is at a subtherapeutic level. I will give him extra Coumadin today. KHOA GILLESPIE MD CM:HISPHYS:PATIENT HISTORY AND PHYSICAL EXAMINATION 12 10 KHOA GILLESPIE MD 02/19/171910 interface
[2017-02-18 20:15] VITALS: BP 218/78
[~2017-02-18 20:15] MED LIST changes: +LOPRESSOR100 M1 PO
[2017-02-18 20:55] VITALS: BP 190/68
[2017-02-18 21:13] VITALS: BP 166/72
[2017-02-18 21:18] LABS: BASO % 0.3 % (0.0-1.0); EOS # 0.1 10*3/uL (0.0-0.4); EOS % 1.2 % (1.0-4.0); HEMATOCRIT 29.7 % (42.0-52.0); HEMOGLOBIN 9.5 g/dl (14.0-18.0); LYMPH # 1.1 10*3/uL (1.3-4.4); MEAN CELL VOLUME 85.1 fl (80.0-94.0); MEAN CORPUSCULAR HGB 27.2 pg (27.0-31.0); MEAN PLATELET VOLUME 9.5 fl (9.6-12.3); MONO # 0.5 10*3/uL (0.1-1.0); MONO % 5.3 % (3.0-9.0); NEUT # 7.6 10*3/uL (2.3-7.9); NEUT % 80.8 % (47.0-73.0); PLATELET COUNT AUTOMATED 229 10*3/uL (130-400); RED BLOOD COUNT 3.49 10*6/uL (4.50-5.90); RED CELL DISTRI WIDTH 16.9 % (0-14.5); WHITE BLOOD COUNT 9.4 10*3/uL (4.8-10.8)
[2017-02-18 21:34] LABS: ALBUMIN 2.8 gm/dl (3.1-4.5); CREATININE 3.59 mg/dL (0.70-1.30); TOTAL PROTEIN 7.2 gm/dL (6.4-8.2); TROPONIN I 0.024 ng/ml (<0.045)
[2017-02-18 23:02] VITALS: BP 171/84
[2017-02-18 23:37] VITALS: BP 222/82
--- NOTE | 2017-02-18 23:37 | NUR ---
10 MG OF APRESOLINE ADMINISTERED ACCORDING TO EMAR. BP 222/82 HR 71
[2017-02-19] VITALS (12 sets, daily range): BP systolic 140–200; BP diastolic 59–98
--- NOTE | 2017-02-19 00:07 | NUR ---
BP RE-EVALUATED. STILL NOT AT THERAPEUTIC LEVEL 212/89. DR JOSIE GILLFIED
--- NOTE | 2017-02-19 02:34 | NUR ---
PT HAS WOUND ON BOTTOM OF LEFT FOOT THAT HE STATES IS TREATED BY HIS WOUND CARE DR AND HE PREFERS TO LEAVE PADDING ON FOOT SO THE WOUND CARE DR CAN EXAMINE IT WHEN HE GOES BACK FOR HIS NEXT APPT
--- NOTE | 2017-02-19 02:39 | NUR ---
REPORT GIVEN TO ED VILA
--- NOTE | 2017-02-19 02:45 | NUR ---
A 61, admitted to , under the services of Dr. JOSE MIGUEL ESPOSITO,KHOA Solorzano with a diagnosis of HTN, CHEST PAIN. Chief complaint is DIFFICULTY BREATHING AND EPIGASTRIC PAIN . Patient arrived via bed from ER. Monitor applied. Initial assessment completed. Vital signs taken and recorded. DR. JOSE MIGUEL ESPOSITO,KHOA Solorzano notified of admission to the unit. Orders received. See assessment for past medical history, medications and allergies. Patient and/or family oriented to unit. [facility] visitation policy reviewed. Clothing/patient valuable form completed. ED GRUBBS
--- NOTE | 2017-02-19 03:00 | NUR ---
DRESSING NOTED TO BOTTOM OF LEFT FOOT. PATIENT ADAMENTLY REFUSING DRESSING BE REMOVED. WILL NOT CONSENT TO WOUND PICS
--- NOTE | 2017-02-19 03:30 | NUR ---
DR GILLESPIE CONTACTED, ADMISSION ORDERS RECEIVED
--- NOTE | 2017-02-19 05:15 | NUR ---
WOUND CARE NURSE LEIF PRESENT ON FLOOR. INFORMED THAT PATIENT HAS A WOUND TO BOTTTOM OF LEFT FOOT. PT ADAMENTLY REFUSING WOUND TO BE UNDRESSED AND PICS TAKEN. PATIENT STATES HE FOLLOWS WITH DR MATUTE WOUND CARE [place] AND REFUSES TO ALLOW "TOO MANY HANDS" IN ON HIS WOUND CARE
--- NOTE | 2017-02-19 06:20 | NUR ---
[facility] CONTACTED REGARDING CONSULT. MESSAGE LEFT. AWAITING RETURN RETURN CALL
--- NOTE | 2017-02-19 08:30 | NUR ---
Store Sales Manager in to talk to patient. Patient states lives at HOME with HIS IWFE. There are 0 steps in the home. Physician: DR GARCIA Pharmacy: [facility] Home health services: NONE AT PRESENT Patient's level of ADLs: MODERATE ASSIST Patient has working utilities: YES DME: WALKER/WC Follow-up physician's appointment after d/c: PREFERS TO MAKE HIS OWN APPT Does patient want to access PORTAL?: Discharge plan HOME. ABISAI GODINEZ
--- NOTE | 2017-02-19 09:00 | NUR ---
This nurse was asked to evaluate patient for wound to left lower extremity. Patient states that he follows with Dr Okeefe in [facility] and he gets monthly dressing changes. Patient stated he doesn't want anyone to bother his foot physician or nurses because Dr. Okeefe cares for him.
--- NOTE | 2017-02-19 09:06 | NUR ---
PERCOSET GIVEN FOR C/O PAIN TO RBSWATHI AND FIGUEROAE,12/16.
--- NOTE | 2017-02-19 09:59 | NUR ---
NOTIFIED DR DODGE, RESIDENT WITH CARDIOLOGY, OF PT 180/80. GIVE REGULARLY SCHEDULED MEDS EARLY PER DR DODGE.
--- NOTE | 2017-02-19 16:35 | NUR ---
PERCOSET 5/325 MG GIVEN FOR GENERALIZED PAIN.11/16.
--- NOTE | 2017-02-19 18:10 | NUR ---
DR JOSE MIGUEL THRASHER AND RIVAS RECIEVED.
[2017-02-20] VITALS: BP 146/63
--- NOTE | 2017-02-20 00:06 | NUR ---
SITTING AT BEDSIDE. RESPIRATIONS EASY. VSS. LUNGS DIMINISHED. PULSE OX 92% RA. ABD SOFT WITH NORMOACTIVE BOWEL SOUNDS, DENIES N/V/D. DRESSING MAINTAINED TO LEFT FOOT, PATIENT CONTINUES TO REFUSE WOUND CARE OR PICS. REQUESTED AND RECEIVED PERCOCET PER PRN ORDER FOR COMPLAINTS OF GENERALIZED CHRONIC BACK PAIN RATING A 10. ALSO RECEIVED AMBIEN TO ASSIST WITH SLEEP. CALL LIGHT WITHIN REACH. WILL MONITOR FOR EFFECTIVENESS
--- NOTE | 2017-02-20 02:00 | NUR ---
EARLIER MEDS APPEAR EFFECTIVE. SLEEPING
--- NOTE | 2017-02-20 06:51 | NUR ---
UPON AWAKENING, REQUESTED AND RECEIVED PERCOCET PER PRN ORDER FOR COMPLAINTS OF CHRONIC BACK PAIN RATING A 4. CALL LIGHT WITHIN REACH. WILL MONITOR FOR EFFECTIVENESS
[2017-02-20 08:00] VITALS: BP 155/67
--- NOTE | 2017-02-20 08:18 | NUR ---
Shift chart check completed.
--- NOTE | 2017-02-20 09:19 | NUR ---
PATIENT REFUSED HIS 70/30. ALREADY HAD IT DRAWN AND HAD TAKEN IT INTO HIS ISOLATION ROOM. I DISCARDED IT INTO THE SHARPS CONTAINER WHEN PATIENT DID NOT WANT IT.
--- NOTE | 2017-02-20 11:00 | NUR ---
PATIENT STATED SINCE HIS BGM IS 213 HE NOW WANTED HIS 70/30 INSULIN. PULLED HIS INSULIN AND MEDICATED.
[2017-02-20 12:00] VITALS: BP 159/68
--- NOTE | 2017-02-20 14:06 | NUR ---
PATIENT MEDICATED WITH PO NORCO FOR PAIN RATED 7/10 IN HIS LEGS AND ABDOMEN.
[2017-02-20] MEDS ORDERED: ZOFRAN ODT8 M1 PO (14:07)
--- NOTE | 2017-02-20 15:00 | NUR ---
PATIENT STATES MEDICATION EFFECTIVE
--- NOTE | 2017-02-20 15:17 | NUR ---
REMOVED MEDIPORT ACCESS. BLEEDING CONTROLLED. PATIENT IS D/C VIA WHEELCHAIR TO THE LOBBY.
== END 2017-02-20 15:17 | disposition home or self-care (01) | DRG 74 ==
LOC: ED 20:15 → EDHOLD 02-19 02:25 → 5E 02-19 02:25
PROVIDERS: Emergency Medicine; ADMIT Internal Medicine
DX: E11.43 Type 2 diabetes mellitus with diabetic autonomic (poly)neuropathy (principal); E44.0 Moderate protein-calorie malnutrition; E11.22 Type 2 diabetes mellitus with diabetic chronic kidney disease; I48.0 Paroxysmal atrial fibrillation; E11.65 Type 2 diabetes mellitus with hyperglycemia; N18.4 Chronic kidney disease, stage 4 (severe); I13.0 Hypertensive heart and chronic kidney disease with heart failure and stage 1 through stage 4 chronic kidney disease, or unspecified chronic kidney disease; I50.30 Unspecified diastolic (congestive) heart failure; E66.01 Morbid (severe) obesity due to excess calories; I16.1 Hypertensive emergency; Z68.41 Body mass index [BMI] 40.0-44.9, adult; K31.84 Gastroparesis; E78.2 Mixed hyperlipidemia; B34.9 Viral infection, unspecified; I25.10 Atherosclerotic heart disease of native coronary artery without angina pectoris; D64.9 Anemia, unspecified; M1A.9XX0 Chronic gout, unspecified, without tophus (tophi); K21.0 Gastro-esophageal reflux disease with esophagitis; F41.1 Generalized anxiety disorder; F17.210 Nicotine dependence, cigarettes, uncomplicated; Z79.899 Other long term (current) drug therapy; Z79.4 Long term (current) use of insulin; Z86.718 Personal history of other venous thrombosis and embolism; Z79.01 Long term (current) use of anticoagulants; I25.2 Old myocardial infarction; Z89.429 Acquired absence of other toe(s), unspecified side; Z83.3 Family history of diabetes mellitus; Z80.9 Family history of malignant neoplasm, unspecified; Z89.511 Acquired absence of right leg below knee; Z84.89 Family history of other specified conditions; Z82.49 Family history of ischemic heart disease and other diseases of the circulatory system

== ENCOUNTER 2017-04-01 08:58 | Inpatient (IN) | payer MEDICARE ==
[~2017-04-01] VITALS: Ht 193 cm; Wt 149.0 kg
[2017-04-01] VITALS (12 sets, daily range): BP systolic 130–173; BP diastolic 50–98
--- NOTE | ~2017-04-01 | CON ---
[place], [place] REPORT OF CONSULTATION NAME: YOLA GARDUNO UNIT #: [id number] ROOM: 428 DOCTOR: CARLO QUINN MD BIRTHDATE: [birth year] DOS: 04/04/2017 REASON FOR CONSULTATION: Renal failure, chronic kidney disease, need for catheterization. ASSESSMENT AND PLAN: Chronic kidney disease stage 5. The patient is at his baseline renal function. He will require further evaluation of abnormal stress test and history of CAD with further test such as cardiac catheterization. I would not hold off on doing this with his renal function at the levels where they are right now. I would pursue that with minimal amount of contrast needed. If PCI is to be performed, again use low volumes of contrast if possible. There is no benefit to Mucomyst or bicarbonate solutions in recent studies published in the [place] [employer] but a small amount of normal saline. Precardiac catheterization would be helpful. Would recommend given his size and his history of volume overload using small amounts, which is 500 mL normal saline, would be reasonable. I would supportively manage him post-cardiac catheterization and if the need for dialysis rises with hyperkalemia, metabolic acidosis or fluid overload that is not amenable to medical therapy, then initiation of dialysis should be done. If, however, he requires coronary bypass grafting after the results of the cardiac catheterization, I would recommend initiation of renal replacement therapy on a preoperative basis given his significant issues and a history of abnormal electrolytes and his high risk of operative mortality if he is not being closely monitored and cleared by dialysis. If the patient is to be going to [facility] in [place], I would recommend ____ group to follow him and I have communicated this with Dr. Blandon. His other electrolytes and acid base status are stable. He did require potassium supplementation, most likely due to his hypokalemia secondary to diuretics. He should continue on his Zaroxolyn, Bumex as currently prescribed, but hold it 24 hours prior to his catheterization. HISTORY OF PRESENT ILLNESS: The patient is a 61-year-old gentleman well known to me for his history of chronic kidney disease. He has been under my care in multiple hospitals both here, [facility], [facility] in [place] and has been seen in my office on a couple of occasions in between these visits, but most of the time, his compliance has been very poor with office appointments. I have asked him to get AV fistula creations in the past, but due to a variety of illnesses, multiple hospitalizations, he has never been able to get this done. He has a history of diabetes with nephropathy, neuropathy, uncontrolled hypertension. Subsequent peripheral arterial disease with chronic wounds, subsequently underwent right below knee amputation at [facility] in [place]; it has healed very well because mostly he had significant distal disease. He has been having increasing hospitalizations with chest pain. Based on the stress tests, there have been significant worsening and increasing areas of ischemia and possible infarction. His creatinine has been in the 5, but generally, they run in the high 3s to mid 4s with a GFR right around 15. We discontinued PAULINE inhibitors and ARBs because of multiple issues with hyperkalemia in the past as well as worsening of renal function and lack of followup, though he does have significant proteinuria and I would have liked to kept it on if possible. He has been on erythropoietin stimulating agents in the past for anemia of chronic disease and chronic inflammation, but has not [place], [place] REPORT OF CONSULTATION NAME: YOLA GARDUNO UNIT #: [id number] ROOM: 428 DOCTOR: CARLO QUINN MD BIRTHDATE: [birth year] followed up for recent injections. Currently, he is without chest pains and resting comfortably, eating and drinking well without nausea, vomiting, or diarrhea. REVIEW OF SYSTEMS: Rest of the review of systems was reviewed and negative except for as per HPI. PAST MEDICAL HISTORY: As above. FAMILY HISTORY: Negative for ESRD. SOCIAL HISTORY: , has children, lives in the [facility]. No current toxic abuse is reported. He used to work in a plant, I believe, [place]. PHYSICAL EXAMINATION: VITAL SIGNS: 98.0, 57, 18, 164/66, 98% on room air. GENERAL: Awake, alert, oriented, no acute distress, pleasant mood and affect. Speech is clear and cogent. The JVP appears that his baseline, he has chronic lower extremity edema and clean BKA on the right is noted. He has some mild crackles, but minimal at best at this time. CARDIOVASCULAR: Rate is controlled, irregular rhythm, no palpable lift or heave or thrill. ABDOMEN: Obese, soft, nontender. Visceral examination is limited because of his obesity. There is no guarding or rebound or rigidity. NEUROLOGIC: Decreased sensation in the distal extremities. Gross motor function is intact, bilaterally symmetric. His cerebral stroke and craniotomy scar is intact and clean. LABORATORIES AND DIAGNOSTICS: INR 1.3. Sodium 140, potassium 3.5, chloride 102, bicarbonate 29, BUN 53, creatinine 4.1, glucose 241, calcium 8.0. Stress test reviewed with small inferior lateral CO with moderate area of anterior and lateral ischemia and small area of distal inferior ischemia, mildly impaired LV systolic function, this appears progressed compared to prior stress test per Dr. Blandon. Thank you very much for this kind consultation. Case was discussed with the water plant operator and the primary team. [place], [place] REPORT OF CONSULTATION NAME: YOLA GARDUNO UNIT #: [id number] ROOM: [facility] DOCTOR: KAI ESPOSITO,CARLO [place] BIRTHDATE: [birth year] CARLO QUINN MD CM:CONSTR:REPORT OF CONSULTATION 1459 04/04/17 2231 interface
--- NOTE | ~2017-04-01 | CON ---
[place], [place] RE[facility] OF [facility]ATION [id number] UNIT #: [id number] ROOM: 428 DOCTOR: DOROTHY RAMOS MD BIRTHDATE: [birth year] DOS: 04/01/2017 REASON FOR CONSULTATION: Chest pain. HISTORY OF PRESENT ILLNESS: The patient is a 61-year-old man who was seen today, 04/01/2017 for evaluation of chest pain. He is known to have coronary artery disease as documented by noninvasive imaging in the past. His most recent stress test on 10/10/2015 showed a small sized reversible defect of the inferior wall with an ejection fraction of 66%. It was felt that he should be managed medically, especially since he does have worsening renal function and it was feared that cardiac catheterization would result in acute renal failure. Since that time, the patient has had other hospitalizations, but has not ruled in for a myocardial infarction. He has had progressive disease of his right leg with a Charcot joint and did undergo amputation last summer. He was awakened at about 4 in the morning today with a sudden increase in his shortness of breath and chest pain. He sat up, but could not catch his breath. He became very uncomfortable and finally did call emergency medical services. He was found to be in atrial fibrillation with rapid ventricular response. Troponin on admission was elevated as well at 0.559. The patient was therefore hospitalized for further management. At the time of admission, it was noted that he was not anticoagulated. His INR was 1.1. He is prescribed Coumadin at home, but ran out and therefore, not anticoagulated at the time of admission. He denies any embolic phenomena or stroke symptoms. His initial electrocardiogram did show atrial fibrillation with a rapid ventricular response. He also had periods of atrial flutter with 2:1 block. He did not have any acute ST changes, but he does have evidence for an old inferior wall myocardial infarction. PAST MEDICAL HISTORY: Includes: 1. Type 2 diabetes mellitus, present for about 10 years and poorly controlled. 2. Obesity. 3. History of cigarette abuse. 4. Peripheral neuropathy. 5. Chronic renal insufficiency, near end stage. 6. 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 Details not available. 7. Bilateral toe amputations. The patient did have a right below the knee amputation in summer 2016. 8. History of cardiac catheterization around 2013 at the [facility] in [place]. Results not currently available, but the patient was told at that time that no revascularization was necessary and his disease was mild. 9. History of paroxysmal atrial fibrillation including atrial fibrillation at the time of the current admission, the patient has converted spontaneously to sinus rhythm. MEDICATIONS: Prior to admission: 1. Amlodipine 10 mg daily. [place], [place] REPORT OF CONSULTATION NAME: YOLA GARDUNO UNIT #: [id number] ROOM: [facility] DOCTOR: DOROTHY RAMOS MD BIRTHDATE: [birth year] 2. Bumetanide 2 mg b.i.d. 3. Clopidogrel 75 mg daily. 4. Gabapentin 300 mg b.i.d. 5. Isosorbide mononitrate 60 mg daily. 6. Metolazone 5 mg Mondays, Wednesdays and Fridays. 7. Metoprolol succinate 100 mg b.i.d. 8. Oxycodone with acetaminophen q. 6 hours p.r.n. 9. Pantoprazole 40 mg daily. 10. Polyethylene glycol daily p.r.n. constipation. 11. Pravastatin 40 mg at bedtime. 12. Epogen 4000 units injected every Thursday. 13. Insulin NPH 70/30, 50 units subcutaneously in the morning and the evening. 14. Regular insulin by sliding scale. 15. Warfarin, dose unknown. The patient ran out and is not currently on the drug. ALLERGIES: No known drug allergies. FAMILY HISTORY: Negative for early coronary artery disease. REVIEW OF SYSTEMS: The patient denies diplopia or loss of vision. He denies focal weakness. He denies lightheadedness or syncope. He gets tired and dyspneic easily and does have some orthopnea. He states that he does develop diaphoresis easily. He denies nausea or vomiting. He has no fevers, chills or recent change in bowel or bladder habits. He denies bleeding in his blood or urine. He denies hemoptysis or hematemesis. Denies heat or cold intolerance and denies any polyuria. He denies any swelling in his left ankle. Remainder of the review of systems is negative except as noted above. SOCIAL HISTORY: The patient was a smoker, but quit over a year ago. He does not consume alcohol. PHYSICAL EXAMINATION: GENERAL: The patient is an overweight -Vietnamese man who is awake, alert and oriented. VITAL SIGNS: Pulse is 88 and regular at present, blood pressure is 157/87. He is afebrile. HEENT: Normocephalic, atraumatic. Extraocular muscles are intact. Sclerae are clear. Pupils are equal, round and react to light. The oral mucosa is moist. Tongue is midline. NECK: Supple. He has minimal jugular distention and hepatojugular reflux. Carotids are full without bruits. LUNGS: Respirations are unlabored. He has decreased breath sounds at the bases, but no wheezes or rales. He has no presacral edema. CARDIOVASCULAR: His heart has a regular rhythm. He has a fourth heart sound. I did not hear a third heart sound or murmur. The PMI was not displaced. There is no precordial heave, lift or thrill. ABDOMEN: Obese, but otherwise benign, without masses, organomegaly or bruits. EXTREMITIES: Showed a right below the knee amputation. The left ankle did not appear swollen. [place], [place] REPORT OF CONSULTATION NAME: YOLA GARDUNO UNIT #: [id number] ROOM: 428 DOCTOR: DOROTHY RAMOS MD BIRTHDATE: [birth year] LABORATORY DATA: Chest x-ray shows normal cardiac silhouette and no obvious infiltrate or vascular congestion. His current electrocardiogram shows sinus rhythm with an old inferior wall myocardial infarction and poor precordial R-wave progression. He does have lateral ST segment flattening, but no definite depression or elevation. IMPRESSIONS: 1. Atypical chest pain. The patient does not have any acute EKG changes, but he did have AFib with RVR earlier today. 2. Troponin elevation. This could be type 2 myocardial infarction related to demand from his atrial fibrillation and RVR. Alternatively, it could be related to an acute myocardial infarction. 3. Hypertension. 4. Type 2 diabetes mellitus. 5. Severe peripheral neuropathy with a right ankle Charcot joint, which required right below the knee amputation. 6. Chronic renal insufficiency. The patient's BUN and creatinine currently is fairly good for him at 53 and 3.98 respectively. PLAN: The patient had a V/Q lung scan today, so any other nuclear imaging cannot be done for at least 24 hours. We will continue to monitor him and monitor his rhythms as well as his renal functions. We will resume his warfarin and make sure he is getting appropriate dosages of his beta joanna, etc. We will probably proceed with a pharmacologic stress test on 04/03/2017. Unfortunately, if he is having unstable angina, then catheterization will be the next step and this could certainly result in a dramatic worsening of his renal functions including the potential for dialysis. I have discussed this briefly with the patient and I will discuss it again if it comes to the fact that he needs a catheterization. I thank Dr. Mohan for asking our advice regarding this patient. DOROTHY RAMOS MD CM:CONSTR:REPORT OF CONSULTATION 1805 04/01/17 2210 interface
--- NOTE | ~2017-04-01 | PR ---
[place], [place] PROGRESS NOTE NAME: YOLA GARDUNO [facility] #: [id number] UNIT #: [id number] ROOM: 428 DOCTOR: KHOA GILLESPIE MD BIRTHDATE: [birth year] DOS: 04/03/2017 SUBJECTIVE: The patient with abnormal cardiac stress test, suggesting 3-vessel coronary artery disease. OBJECTIVE: VITAL SIGNS: Blood pressure 125/65, breathing normally, heart rate of 70 beats per minute, afebrile. IMPRESSION: 1. The patient has stage 4 kidney failure, which may go into complete end-stage kidney disease and require dialysis if he goes for heart catheterization and iodine load. I am consulting Nephrology to discuss this with the patient. 2. Coronary artery disease of the red cliff vessels, with abnormal cardiac stress test suggesting 3-vessel coronary artery disease, requires heart catheterization. If the patient does not go for heart catheterization and treatment, he runs a very high risk for acute myocardial infarction and . This was discussed with the patient and the rolling attendant. 3. Benign essential hypertension, with controlled blood pressures with treatment. 4. Chronic diastolic type congestive heart failure, compensated. 5. Type 2 diabetes mellitus, uncontrolled. Blood sugars are being monitored and treated. 6. Hypokalemia, to be replaced with potassium supplements. KHOA GILLESPIE MD CM:PNTRANS [id number] KHOA GILLESPIE MD 04/03/178 interface
--- NOTE | ~2017-04-01 | PR ---
[place], [place] PROGRESS NOTE [id number] UNIT #: [id number] ROOM: 428 DOCTOR: KHOA GILLESPIE MD BIRTHDATE: [birth year] DOS: 04/02/2017 SUBJECTIVE: The patient continues to feel better. OBJECTIVE: VITAL SIGNS: Blood pressure 138/61, heart rate of 67 beats per minute, breathing normally, afebrile. GENERAL APPEARANCE: The patient is alert and oriented x 3, in no visible distress, morbid obesity. HEENT AND NECK: Exam within normal limits. CARDIOVASCULAR SYSTEM: Heart rate is regular in rate and rhythm. S1 and S2 normally audible. LUNGS: Clear to auscultation. ABDOMEN: Soft, nontender. No obvious organomegaly. Bowel sounds are present. EXTREMITIES: Right below knee amputation with amputation of first 2 toes of the left foot. ASSESSMENT AND PLAN: 1. The patient with complaints of chest pains prior to admission, is undergoing cardiac stress testing, to be performed by Cardiology tomorrow. 2. Moderate protein calorie malnutrition. 3. Acute atrial fibrillation, resolved. 4. Type 2 diabetes mellitus, uncontrolled. Blood sugar is being monitored and treated. The patient on a no concentrated sweet diet. 5. Chronic diastolic type congestive heart failure, compensated. 6. Benign essential hypertension, with controlled blood pressures. KHOA GILLESPIE MD CM:PNTRANS [id number] KHOA GILLESPIE MD 04/02/172201 interface
--- NOTE | ~2017-04-01 | WRIGHTHP ---
[place], [place] PATIENT HISTORY AND PHYSICAL EXAM NAME: YOLA GARDUNO [facility] #: [id number] UNIT #: [id number] ROOM: 428 DOCTOR: KHOA GILLESPIE MD BIRTHDATE: [birth year] DOS: 04/01/2017 HISTORY OF PRESENT ILLNESS: The patient is a 61-year-old gentleman who presented to the Emergency Department at [facility] with complaints of chest pains and shortness of breath. The patient was found to be in atrial fibrillation with rapid ventricular response. The patient had these symptoms for about 3 hours, although he did not feel any palpitations, but he did have mid sternal chest pains and then to the left side which were sharp. The patient says that he had ran out of his Coumadin, which he was supposed to be taking at home. No diaphoresis. Some nausea. No vomiting. No diarrhea or any other symptoms. DICTATION ENDS HERE KHOA GILLESPIE MD CM:HISPHYS:PATIENT HISTORY AND PHYSICAL EXAMINATION 1608 [id number] KHOA GILLESPIE MD 04/01/17 172 interface
--- NOTE | ~2017-04-01 | PR ---
[place], [place] PROGRESS NOTE NAME: YOLA GARDUNO [facility] #: [id number] UNIT #: [id number] ROOM: 428 DOCTOR: DOROTHY RAMOS MD BIRTHDATE: [birth year] DOS: 04/04/2017 SUBJECTIVE: The patient was seen at his bedside today, 04/04/2017 for followup of his atherosclerotic heart disease and recent episode of unstable angina. The patient feels well today. He is able to lay almost flat and is breathing easily. His stress test yesterday was abnormal. It showed a large area of anterior and lateral ischemia, which was new. There was inferolateral myocardial infarction with a moderate sized area of summer-infarction ischemia, which was old. The amount of myocardium at risk was large and the study was felt to represent a moderate to high risk for future events. His ejection fraction was also depressed at 47%, previously it had been 65%. I have discussed these findings with the patient as well as with his primary care physician, Dr. Mohan. I have also discussed the findings with his glass sagger, Dr. Nails and with an automation and controls instructor at [facility], Dr. Tyshawn Noguera. It seems very likely that the patient does have multivessel disease and is at high risk for future events. We all understand that a catheterization will likely cause at least temporary kidney damage if not permanent kidney damage. Given the seriousness of his cardiac findings, however, the patient is willing to accept that risk. We are planning on transferring him to [facility] for Nephrology evaluation there, cardiac evaluation there and eventual catheterization. PHYSICAL EXAMINATION: VITAL SIGNS: Today his pulse is 57 and irregularly irregular, blood pressure is 164/66. He is afebrile. NECK: Supple. He has no jugular distention. Carotids are full. LUNGS: Respirations are unlabored. His chest is clear. HEART: Has an irregularly irregular rhythm. There are no murmurs or gallops. ABDOMEN: Obese. EXTREMITIES: Show a right below the knee amputation. His left ankle shows no edema. IMPRESSION: 1. Unstable angina/non-ST elevation myocardial infarction, prompting current hospitalization. 2. Troponin elevation due to acute myocardial injury. 3. Hypertension. 4. Type 2 diabetes mellitus. 5. Severe peripheral neuropathy with right ankle Charcot joint, which required right below the knee amputation. 6. Chronic renal insufficiency. The patient's normal creatinine is around 4. Today's creatinine is 4.1. PLAN: As noted above, I did speak to multiple physicians who care for the patient. We all agree that his cardiac issues are serious and will require aggressive management. We will plan on sending him to [facility] for Nephrology assessment and subsequent catheterization. [place], [place] PROGRESS NOTE NAME: YOLA GARDUNO UNIT #: [id number] ROOM: [facility] DOCTOR: DOROTHY RAMOS MD BIRTHDATE: [address] Mohan for asking our advice regarding the care of this patient. DOROTHY RAMOS MD CM:PNTRANS [id number] DOROTHY RAMOS MD 04/04/17 2153 interface
--- NOTE | ~2017-04-01 | WRIGHTHP ---
[place], [place] PATIENT HISTORY AND PHYSICAL EXAM NAME: YOLA GARDUNO [facility] #: [id number] UNIT #: [id number] ROOM: 428 DOCTOR: KHOA GILLESPIE MD BIRTHDATE: [birth year] DOS: 04/01/2017 HISTORY OF PRESENT ILLNESS: The patient is a 61-year-old gentleman with a past medical history of: 1. Long-standing type 2 diabetes mellitus. 2. History of chronic kidney disease stage 4. 3. Diabetic nephropathy and neuropathy. 4. Chronic diastolic type CHF. 5. History of DVT of the axillary vein in the past. 6. GERD and esophagitis. 7. Chronic gouty arthritis. 8. Mixed hyperlipidemia. 9. Benign essential hypertension. 10. History of right below knee amputation and left foot amputation of the first 2 toes. 11. Chronic atrial fibrillation, paroxysmal. 12. Protein-calorie malnutrition, moderate. 13. Nicotine smoke dependence. 14. Uncontrolled benign essential hypertension. 15. Vitamin B12 and vitamin D deficiency. 16. Generalized anxiety disorder. 17. Anemia of chronic disease. The patient presented to the Emergency Department with complaints of chest pains and some shortness of breath. The patient was found to be in rapid atrial fibrillation. The patient had precordial chest pain and also some sharp pain in the left side of the chest with some nausea. No diaphoresis. The patient's symptoms have resolved now. In the ER, the patient was given Cardizem and he converted to normal sinus rhythm. REVIEW OF SYSTEMS: LUNGS: Some shortness of breath. GASTROINTESTINAL: Some nausea earlier on. No vomiting or diarrhea. CARDIOVASCULAR: Complains of chest pain. No palpitation complains. FAMILY HISTORY: Noncontributory. HOME MEDICATIONS: The patient takes Bumex, Neurontin, metolazone, insulin, pravastatin, Imdur, amlodipine, Protonix, metoprolol, erythropoietin, MiraLax. SOCIAL HISTORY: Previous history of alcohol dependence, stopped 7-8 years back. Nicotine smoke dependence. The patient has cut down to smoking only 3-4 cigarettes a day. Denies any illicit drug abuse. PHYSICAL EXAMINATION: GENERAL: Alert and oriented x 3, in no visible distress, moderately obese. HEENT AND NECK: Extraocular movements are intact. Sclerae are anicteric. Oral mucosa is moist and clean. No obvious facial weakness. Neck is supple without any lymphadenopathy. No thyromegaly. No JVD. No carotid arterial bruits. LUNGS: Clear to auscultation. No wheezing. No rhonchi. [place], [place] PATIENT HISTORY AND PHYSICAL EXAM NAME: YOLA GARDUNO UNIT #: [id number] ROOM: [facility] DOCTOR: KHOA GILLESPIE MD BIRTHDATE: [birth year] CARDIOVASCULAR SYSTEM: Heart rate is regular in rate and rhythm. S1 and S2 normally audible. No significant murmur or any other abnormal cardiac sounds. ABDOMEN: Soft, nontender. No obvious organomegaly. Bowel sounds are present. No obvious herniation. EXTREMITIES: The patient has amputation of right below knee amputation and also amputation of the first two toes of the left foot. CENTRAL NERVOUS SYSTEM: Alert and oriented x 3. Cranial nerves II-XII are intact. Speech is normal. The patient is able to move all extremities. Normal muscle strength. Deep tendon reflexes are equal on both sides. Plantars were downgoing. LABORATORY DATA: V/Q scan of the lungs was normal. Troponin is positive at 1.66. Chest x-ray was normal. BUN and creatinine 53 and 4m potassium level 3.2. White cell count 11,400, hemoglobin 12. IMPRESSION: 1. Chest pains with slightly elevated troponin I level. I will get Cardiology consult. The patient is chest pain free now. 2. Type 2 uncontrolled diabetes mellitus. Blood sugar is to be monitored and treated. 3. History of paroxysmal atrial fibrillation with rapid ventricular response. The patient converted back to normal sinus rhythm with Cardizem and treatment in the Emergency Department. 4. History of diabetic gastroparesis with chronic nausea. 5. Chronic kidney disease stage 4 and diabetic nephropathy. 6. Benign essential hypertension. I will monitor blood pressures and treat accordingly. 7. Moderate protein calorie malnutrition. The patient to work with dietary. 8. Chronic diastolic type congestive heart failure with chest x-ray showing no acute abnormality. 9. Nicotine smoke dependence. The patient being encouraged to stop smoking cigarettes. KHOA GILLESPIE MD CM:HISPHYS:PATIENT HISTORY AND PHYSICAL EXAMINATION [id number] KHOA GILLESPIE MD 04/01/172022 interface
--- NOTE | ~2017-04-01 | PR ---
[place], [place] PROGRESS NOTE NAME: YOLA GARDUNO UNIT #: [id number] ROOM: 428 DOCTOR: ROJELIO CORLEY MD BIRTHDATE: [birth year] DOS: SUBJECTIVE: He is sitting up in bed, eating his breakfast this morning. He does not have any complaints. OBJECTIVE: VITAL SIGNS: Blood pressure is 138/52, pulse of 64, respirations 18, temperature 98.7. LUNGS: Clear. HEART: Regular. ABDOMEN: Obese, but nontender. EXTREMITIES: Without any edema. ASSESSMENT AND PLAN: 1. This is a patient who presents with chest pain, has a positive stress test and he is awaiting a cardiac catheterization on Thursday. 2. Chronic kidney disease stage 4. The patient is aware of the fact that he may require a dialysis after the cardiac catheterization and is agreeable for the catheterization. We will ask Dr. Blandon to make arrangements. Dr. Lay was made aware of it and he is agreeable. ROJELIO CORLEY MD CM:PNTRANS [id number] ROJELIO CORLEY MD 04/04/17 1026 interface
[~2017-04-01 08:58] MED LIST changes: +ZOFRAN ODT8 M1 PO
[2017-04-01 09:41] LABS: BASO % 0.4 % (0.0-1.0); EOS # 0.1 10*3/uL (0.0-0.4); HEMATOCRIT 35.6 % (42.0-52.0); HEMOGLOBIN 11.9 g/dl (14.0-18.0); LYMPH # 1.6 10*3/uL (1.3-4.4); LYMPH % 13.8 % (27.0-41.0); MEAN CELL VOLUME 81.3 fl (80.0-94.0); MEAN CORPUSCULAR HGB 27.2 pg (27.0-31.0); MEAN CORPUSCULAR HGB CONC 33.4 g/dl (33.0-37.0); MEAN PLATELET VOLUME 9.9 fl (9.6-12.3); MONO # 0.7 10*3/uL (0.1-1.0); MONO % 6.1 % (3.0-9.0); NEUT # 8.9 10*3/uL (2.3-7.9); NEUT % 78.2 % (47.0-73.0); PLATELET COUNT AUTOMATED 228 10*3/uL (130-400); RED BLOOD COUNT 4.38 10*6/uL (4.50-5.90); RED CELL DISTRI WIDTH 16.3 % (0-14.5); WHITE BLOOD COUNT 11.4 10*3/uL (4.8-10.8)
[2017-04-01 09:52] LABS: ACT PARTIAL THROMBO TIME 32.3 SECONDS (19.5-32.1); INTERNATIONAL NORM RATIO 1.1 (2.0-3.5)
[2017-04-01 09:58] LABS: ALBUMIN 3.1 gm/dl (3.1-4.5); CREATININE 3.98 mg/dL (0.70-1.30); POTASSIUM 3.2 mmol/L (3.5-5.1); TOTAL PROTEIN 7.6 gm/dL (6.4-8.2)
[2017-04-01 10:16] LABS: TROPONIN I 0.559 ng/ml (<0.045)
[2017-04-02] VITALS: BP 165/81
[2017-04-02 08:00] VITALS: BP 154/76
[2017-04-02 08:04] LABS: BASO % 0.4 % (0.0-1.0); EOS # 0.2 10*3/uL (0.0-0.4); EOS % 2.2 % (1.0-4.0); HEMATOCRIT 32.5 % (42.0-52.0); HEMOGLOBIN 10.5 g/dl (14.0-18.0); LYMPH # 1.4 10*3/uL (1.3-4.4); LYMPH % 15.6 % (27.0-41.0); MEAN CELL VOLUME 83.8 fl (80.0-94.0); MEAN CORPUSCULAR HGB 27.1 pg (27.0-31.0); MEAN CORPUSCULAR HGB CONC 32.3 g/dl (33.0-37.0); MEAN PLATELET VOLUME 10.3 fl (9.6-12.3); MONO # 0.6 10*3/uL (0.1-1.0); MONO % 6.1 % (3.0-9.0); NEUT # 6.8 10*3/uL (2.3-7.9); NEUT % 75.3 % (47.0-73.0); PLATELET COUNT AUTOMATED 220 10*3/uL (130-400); RED BLOOD COUNT 3.88 10*6/uL (4.50-5.90); RED CELL DISTRI WIDTH 16.6 % (0-14.5)
[2017-04-02 08:44] LABS: INTERNATIONAL NORM RATIO 1.2 (2.0-3.5)
[2017-04-02 08:52] LABS: CREATININE 4.11 mg/dL (0.70-1.30); POTASSIUM 3.4 mmol/L (3.5-5.1)
[2017-04-02 12:00] VITALS: BP 138/61
[2017-04-02 16:00] VITALS: BP 134/65
[2017-04-02 20:00] VITALS: BP 134/43
[2017-04-03] VITALS: BP 164/69
[2017-04-03 08:00] VITALS: BP 154/73
[2017-04-03 08:02] LABS: INTERNATIONAL NORM RATIO 1.2 (2.0-3.5)
[2017-04-03 08:04] LABS: CREATININE 3.98 mg/dL (0.70-1.30); POTASSIUM 3.2 mmol/L (3.5-5.1)
[2017-04-03 16:00] VITALS: BP 125/65
[2017-04-03 20:00] VITALS: BP 179/70
[2017-04-04] VITALS: BP 138/52
[2017-04-04 06:32] LABS: CREATININE 4.1 mg/dL (0.70-1.30); INTERNATIONAL NORM RATIO 1.3 (2.0-3.5); POTASSIUM 3.5 mmol/L (3.5-5.1)
[2017-04-04 08:00] VITALS: BP 164/66
[2017-04-04 15:36] LABS: BASO % 0.4 % (0.0-1.0); EOS # 0.2 10*3/uL (0.0-0.4); EOS % 1.9 % (1.0-4.0); HEMATOCRIT 31.4 % (42.0-52.0); HEMOGLOBIN 9.9 g/dl (14.0-18.0); LYMPH # 1.4 10*3/uL (1.3-4.4); LYMPH % 14.9 % (27.0-41.0); MEAN CELL VOLUME 84.6 fl (80.0-94.0); MEAN CORPUSCULAR HGB 26.7 pg (27.0-31.0); MEAN CORPUSCULAR HGB CONC 31.5 g/dl (33.0-37.0); MEAN PLATELET VOLUME 10.1 fl (9.6-12.3); MONO # 0.7 10*3/uL (0.1-1.0); NEUT # 7.2 10*3/uL (2.3-7.9); NEUT % 75.2 % (47.0-73.0); PLATELET COUNT AUTOMATED 216 10*3/uL (130-400); RED BLOOD COUNT 3.71 10*6/uL (4.50-5.90); RED CELL DISTRI WIDTH 16.4 % (0-14.5); WHITE BLOOD COUNT 9.6 10*3/uL (4.8-10.8)
[2017-04-04 16:00] VITALS: BP 167/71
== END 2017-04-04 19:20 | disposition short-term general hospital (02) | DRG 281 ==
LOC: ED 08:58 → EDHOLD 10:56 → 4E 13:13
PROVIDERS: Emergency Medicine; Internal Medicine; Internal Medicine Cardiovascular Disease
PROC: 3E073KZ Introduction of Other Diagnostic Substance into Coronary Artery, Percutaneous Approach (ICD-10-PCS; principal; 2017-04-03)
PROC: 4A02XM4 Measurement of Cardiac Total Activity, External Approach (ICD-10-PCS; principal; 2017-04-03)
DX: I21.4 Non-ST elevation (NSTEMI) myocardial infarction (principal); I13.2 Hypertensive heart and chronic kidney disease with heart failure and with stage 5 chronic kidney disease, or end stage renal disease; E11.22 Type 2 diabetes mellitus with diabetic chronic kidney disease; E11.42 Type 2 diabetes mellitus with diabetic polyneuropathy; E44.0 Moderate protein-calorie malnutrition; I48.92 Unspecified atrial flutter; E11.65 Type 2 diabetes mellitus with hyperglycemia; E11.51 Type 2 diabetes mellitus with diabetic peripheral angiopathy without gangrene; I48.0 Paroxysmal atrial fibrillation; I48.91 Unspecified atrial fibrillation; N18.5 Chronic kidney disease, stage 5; I50.32 Chronic diastolic (congestive) heart failure; Z68.41 Body mass index [BMI] 40.0-44.9, adult; I25.110 Atherosclerotic heart disease of native coronary artery with unstable angina pectoris; E87.6 Hypokalemia; K21.9 Gastro-esophageal reflux disease without esophagitis; M1A.9XX0 Chronic gout, unspecified, without tophus (tophi); E78.2 Mixed hyperlipidemia; F17.200 Nicotine dependence, unspecified, uncomplicated; E53.8 Deficiency of other specified B group vitamins; E55.9 Vitamin D deficiency, unspecified; F41.1 Generalized anxiety disorder; D63.8 Anemia in other chronic diseases classified elsewhere; E66.01 Morbid (severe) obesity due to excess calories; Z79.4 Long term (current) use of insulin; Z79.899 Other long term (current) drug therapy; Z89.422 Acquired absence of other left toe(s); Z89.421 Acquired absence of other right toe(s); Z79.01 Long term (current) use of anticoagulants; Z83.3 Family history of diabetes mellitus; Z82.49 Family history of ischemic heart disease and other diseases of the circulatory system

== ENCOUNTER → 2018-03-18 | Outpatient (CLI) | payer MEDICARE ==
[~2018-03-18] MED LIST changes: +ARANESP100 MCG/1 IV; +ARGININE PO; +B-12500 MC1 PO; +CLONIDINE HCL0.2 MG PO; +COZAAR50 M1 PO; +Coumadin7.5 MG PO; +HUMALOG MI100 UNIT/1 SQ; +LIQUACEL 30 ML30 M1 PO; +METOPROLOL SUCC50 M1 PO; +NATURE'S BLEND F1 MG PO; +RENVELA800 MG PO; +SENNA8.6 MG PO; +TOPROL XL25 MG PO; +VANCOMYCIN HYDRO1 G1 IV
== END | disposition home or self-care (01) ==
LOC: WOUNDCARE 02:54
DX: E11.621 Type 2 diabetes mellitus with foot ulcer (principal); L97.521 Non-pressure chronic ulcer of other part of left foot limited to breakdown of skin; S61.301A Unspecified open wound of left index finger with damage to nail, initial encounter; E11.51 Type 2 diabetes mellitus with diabetic peripheral angiopathy without gangrene; E11.22 Type 2 diabetes mellitus with diabetic chronic kidney disease; I13.11 Hypertensive heart and chronic kidney disease without heart failure, with stage 5 chronic kidney disease, or end stage renal disease; N18.6 End stage renal disease; I50.32 Chronic diastolic (congestive) heart failure; I48.91 Unspecified atrial fibrillation; E78.5 Hyperlipidemia, unspecified; Z99.2 Dependence on renal dialysis; Z79.4 Long term (current) use of insulin; Z87.891 Personal history of nicotine dependence; Z89.511 Acquired absence of right leg below knee; X58.XXXA Exposure to other specified factors, initial encounter; Y93.89 Activity, other specified; Y92.89 Other specified places as the place of occurrence of the external cause; Y99.8 Other external cause status

== ENCOUNTER → 2018-04-01 | Outpatient (CLI) | payer MEDICARE | END | disposition home or self-care (01) | LOC: WOUNDCARE 01:47 | DX: E11.621 Type 2 diabetes mellitus with foot ulcer (principal); L97.526 Non-pressure chronic ulcer of other part of left foot with bone involvement without evidence of necrosis; S61.301D Unspecified open wound of left index finger with damage to nail, subsequent encounter; E11.51 Type 2 diabetes mellitus with diabetic peripheral angiopathy without gangrene; E11.22 Type 2 diabetes mellitus with diabetic chronic kidney disease; I12.0 Hypertensive chronic kidney disease with stage 5 chronic kidney disease or end stage renal disease; N18.6 End stage renal disease; E78.5 Hyperlipidemia, unspecified; Z99.2 Dependence on renal dialysis; Z87.891 Personal history of nicotine dependence; X58.XXXD Exposure to other specified factors, subsequent encounter ==

== ENCOUNTER → 2018-04-15 | Outpatient (CLI) | payer MEDICARE | END | disposition home or self-care (01) | LOC: WOUNDCARE 04:54 | DX: E11.621 Type 2 diabetes mellitus with foot ulcer (principal); L97.526 Non-pressure chronic ulcer of other part of left foot with bone involvement without evidence of necrosis; S61.301D Unspecified open wound of left index finger with damage to nail, subsequent encounter; I73.9 Peripheral vascular disease, unspecified; E11.22 Type 2 diabetes mellitus with diabetic chronic kidney disease; I12.0 Hypertensive chronic kidney disease with stage 5 chronic kidney disease or end stage renal disease; N18.6 End stage renal disease; E78.5 Hyperlipidemia, unspecified; Z99.2 Dependence on renal dialysis; Z98.62 Peripheral vascular angioplasty status; Z87.891 Personal history of nicotine dependence; X58.XXXD Exposure to other specified factors, subsequent encounter ==